=== PATIENT | female | born 1945 | race Caucasian/White ===

== ENCOUNTER 2022-03-26 18:53 | Inpatient (IN) ==
[~2022-03-26 18:53] MED LIST: ETOMIDATE 2 MG/ML 20 ML VIAL IV ONE; ROCURONIUM BROMIDE 10 MG/ML 5 ML VIAL IV ONE
[2022-03-26] MEDS ORDERED: RAPID SEQUENCE INDUCTION BAG ONE (19:05)
[2022-03-26] MEDS ORDERED: PROPOFOL IV EMULSION 10 MG/ML 100 ML VIAL IV ONE (19:16)
[2022-03-26] MEDS ORDERED: PIPERACILLIN/TAZOBACTAM 4.5 GM/120 ML BAG IV ONE (19:17)
[2022-03-26] MEDS ORDERED: PIPERACILL/TAZOBAC CONSULT ACTIVE PRN (19:17)
--- NOTE | 2022-03-26 19:17 | Emergency Department Note ---
Impression & Plan Acute respiratory failure with hypoxia and hypercarbia, Altered mental status, Pulmonary embolism, Elevated troponin I level ED Provider Note NAME: ALO JERNIGAN AGE: 76 SEX: F : 1945 ARRIVES VIA: Ambulance INFORMANT: Patient, ED PROVIDER(S): Saul Cuello MD Chief Complaint: Altered mental status HPI: Limited travel was obtained from EMS prior to arrival. The patient reportedly had been satting in the low 80s with a remote history of COPD and is supposed to wear 1 L at all times. The patient has had a been elements of failure to thrive. Patient was in the high 80s on 6 L and was placed on a non rebreather. The patient has been responsive to painful stimuli only. No reported trauma or falls. Family is to be present shortly for further history but otherwise no other history is obtainable at this time. Family eventually did arrive after the patient had been intubated and I did gather additional history. They did state the patient did recently travel from [place] and does have a known history of CAD status post stent placement. Patient had been without her Trelegy medication and does have a known history of hypothyroidism, hyperlipidemia, hypertension bronchitis depression and is a prediabetic. Patient reportedly had been more despondent in the time that she had presented here and they were also concerned about some leg swelling. This had been evaluated when she had been seeing her primary doctor in [place]. The patient had been traveling to the area to be closer to family locally. Patient had not been eating or drinking and was not using her oxygen typically. ROS: Unable to obtain secondary to clinical condition. Past medical history: See below Surgical history: See below Social history: See below Physical Exam: GENERAL: Ill, nonrebreather in place, guppy breathing EYE EXAM: Normal conjunctiva. PERRL, no anisocoria and EOM's grossly intact w/o pain. OROPHARYNX: Moist mucus membranes. Grossly normal dentition. No exudate, posterior pharynx is clear, no tonsillar/uvular deviation or swelling. No cervical adenopathy, no submental, submandibular, or sublingual swelling. NECK: Supple, no nuchal rigidity, no adenopathy, non-tender. No signs of meningismus. FROM of the neck with good chin to chest and neck extension. No stridor. LUNGS: Crackles noted. Normal chest wall mechanics. HEART: NSR, no MRG. ABDOMEN: Abdomen soft, non-tender, normo-active bowel sounds, no masses, no rebound or guarding. BACK: No CVA TTP. SKIN: No rashes and no bruising. UPPER EXTREMITIES: Upper extremities are grossly normal. LOWER EXTREMITIES: Grossly normal, no edema. NEURO EXAM: GCS of 9, does not follow commands, moves all 4 extremities, responds to painful stimuli Differential diagnoses: Reactive airway disease, pneumonia, pneumothorax, COPD, CHF, infections, cardiac ischemia, pulmonary embolism, musculoskeletal, gastrointestinal, as well as other pathologies. Course: Patient was seen and evaluated the bedside. Full history physical exam was performed. EKG interpreted by me Sinus with short IA, rate of 69, left axis deviation, no obvious ST elevations. Imaging Studies: See Below Cardiac monitoring: An order was placed for continuous cardiac monitoring. The monitor shows a rate of 88 with sinus rhythm. Procedures: Endotracheal Intubation performed by Dr. Cuello Indication: Airway protection, hypoxemia The patient was on 100% oxygen via NRB prior to the procedure. Suction, airway equipment, RSI drugs, respiratory equipment, and appropriate personnel were prepared prior to the initiation of the procedure. A time out was taken. Induction was performed with. After observing the clinical benefit of the medications, the airway was easily visualized utilizing a. A size ETT tube was placed atraumatically to cm using standard technique. The cuff inflated without signs of malfunction. There were bilateral breath sounds, positive colormetric change, no gastric sounds, a good capnography waveform, and post procedure pulse oximetry was %. Post intubation sedation and paralysis was administered using. There were no complications. MDM: Patient was seen initially due to concern for respiratory distress. The patient only responded to painful stimuli and was otherwise not following commands and I was concerned about her airway. The decision was made to emergently intubate the patient. Little history was known other than the patient had a history of COPD prior to arrival. Patient's CODE STATUS was unknown but in light of the patient's respiratory difficulty the patient was intubated. Patient had blood work completed along with a blood gas. Patient was started on a higher rate given concern for possible hypercarbia. Broad-spectrum antibiotics were ordered in addition to EKG, postintubation x-ray and sedation. Patient is a white count of 11.5 with a normal H&H and platelet count. The patient's kidney function does show prerenal azotemia. Patient did receive some IV fluids. The patient's initial blood gas showed slight acidosis and hypercarbia. Patient did have a repeat completed 1 hour later which showed improvement in her acidosis and hypercarbia. Patient's troponin was 150. EKG with no obvious ischemic changes and believe that this may be secondary to the patient's hypoxemia. This will be continued to be trended and monitored. Pro-Alex is not elevated. Urinalysis does not show obvious infection. Patient CT head is negative. CT angiography of the chest did show concern for PEs. Heparin was ordered. I did speak with the on-call hospitalist Dr. Garcia's as well as intensive care Nicko Lao PA-C. I also did convey the findings with the patient's family who were present at bedside. Patient was admitted to the intensive care unit. Critical Care: I have personally spent 125 minutes of critical care time in direct management of this patient. This includes bedside care, interpretation of diagnostic studies, and testing, discussion with consultants, patient, and family members, and other require inpatient management activities. This 125 minutes is in excess of all separately billable procedures. Past Med/Surg History Medical History (Updated 03/26/22 @ 23:29 by Saul Cuello MD) COPD (chronic obstructive pulmonary disease) Social History Smoking Status: Unknown if ever smoked Allergies Allergies Allergy/AdvReac Type Severity Reaction Status Date / Time pollen extracts Allergy Intermediate ITCHY Verified 03/26/22 20:26 EYES, SNEEZING, CONGESTION Home Meds Home Medications Medication Instructions Recorded Confirmed albuterol sulfate 90 mcg/actuation 2 puff INHALATION Q4H PRN 03/26/22 03/26/22 aerosol inhaler amlodipine 2.5 mg tablet 5 mg PO DAILY 03/26/22 03/26/22 atenolol 25 mg tablet 25 mg PO DAILY 03/26/22 03/26/22 fluticasone fur. 200 mcg-umeclid 1 inh INHALATION DAILY 03/26/22 03/26/22 62.5 mcg-vilant 25 mcg inhalat.powder (Trelegy Ellipta) levothyroxine 50 mcg tablet 50 mcg PO QAM 03/26/22 03/26/22 loratadine 10 mg tablet 10 mg PO DAILY 03/26/22 03/26/22 skckoqqlldpm-ybbsmvvh-ytnzel 1 tab PO DAILY 03/26/22 03/26/22 tablet (Multivitamin 50 Plus) nicotine (polacrilex) 4 mg gum 4 mg PO DIRECTED PRN 03/26/22 03/26/22 nitroglycerin 0.4 mg sublingual 0.4 mg SUBLINGUAL DIRECTED PRN 03/26/22 03/26/22 tablet (Nitrostat) rosuvastatin 20 mg tablet 20 mg PO QPM 03/26/22 03/26/22 sertraline 25 mg tablet 25 mg PO DAILY 03/26/22 03/26/22 Results & Data (ED) Vital Signs Vital Signs - 24 hr 03/26/22 18:59 03/26/22 19:15 03/26/22 19:20 Temperature 37.0 C Temperature Source Oral Pulse Rate 78 99 H 96 H Respiratory Rate 22 24 24 Respiratory Effort / Characteristics Gasping/Agonal Grunting Respiratory Pattern Irregular Blood Pressure 179/91 H 147/83 H Blood Pressure Mean 120 104 Blood Pressure Position Lying Pulse Oximetry 98 100 99 Oxygen Delivery Method Nasal Cannula Oxygen Flow Rate 2 Fraction of Inspired Oxygen 80 Sepsis Recent Fever Within 48 Hours No Sepsis New/Unexplained Change in Mental Status Yes Sepsis Action Taken by Nursing Physician Notified End-Tidal CO2 52 50 03/26/22 19:25 03/26/22 19:26 03/26/22 19:30 Temperature Temperature Source Pulse Rate 103 H 102 H 77 Respiratory Rate 24 24 25 H Respiratory Effort / Characteristics Respiratory Pattern Blood Pressure 225/146 H 232/147 H Blood Pressure Mean 172 175 Blood Pressure Position Pulse Oximetry 94 100 100 Oxygen Delivery Method Oxygen Flow Rate Fraction of Inspired Oxygen 30 Sepsis Recent Fever Within 48 Hours Sepsis New/Unexplained Change in Mental Status Sepsis Action Taken by Nursing End-Tidal CO2 48 47 43 03/26/22 19:35 03/26/22 19:40 03/26/22 19:41 Temperature Temperature Source Pulse Rate 91 H 83 90 Respiratory Rate 25 H 25 H 25 H Respiratory Effort / Characteristics Respiratory Pattern Blood Pressure 219/127 H 206/129 H Blood Pressure Mean 157 154 Blood Pressure Position Pulse Oximetry 99 99 99 Oxygen Delivery Method Oxygen Flow Rate Fraction of Inspired Oxygen Sepsis Recent Fever Within 48 Hours Sepsis New/Unexplained Change in Mental Status Sepsis Action Taken by Nursing End-Tidal CO2 38 36 34 03/26/22 19:42 03/26/22 19:43 03/26/22 19:45 Temperature Temperature Source Pulse Rate 77 Respiratory Rate 24 24 Respiratory Effort / Characteristics Mechanically Ventilated Respiratory Pattern Blood Pressure Blood Pressure Mean Blood Pressure Position Pulse Oximetry 99 99 100 Oxygen Delivery Method Mechanical Vent Mechanical Vent Oxygen Flow Rate Fraction of Inspired Oxygen Sepsis Recent Fever Within 48 Hours Sepsis New/Unexplained Change in Mental Status Sepsis Action Taken by Nursing End-Tidal CO2 33 03/26/22 19:46 03/26/22 19:50 03/26/22 19:51 Temperature Temperature Source Pulse Rate 77 71 76 Respiratory Rate 24 24 24 Respiratory Effort / Characteristics Respiratory Pattern Blood Pressure 177/99 H 155/86 H Blood Pressure Mean 125 109 Blood Pressure Position Pulse Oximetry 99 99 99 Oxygen Delivery Method Oxygen Flow Rate Fraction of Inspired Oxygen Sepsis Recent Fever Within 48 Hours Sepsis New/Unexplained Change in Mental Status Sepsis Action Taken by Nursing End-Tidal CO2 32 29 27 03/26/22 19:52 03/26/22 19:55 03/26/22 20:18 Temperature Temperature Source Pulse Rate 75 69 Respiratory Rate 25 H 25 H Respiratory Effort / Characteristics Respiratory Pattern Blood Pressure 151/84 H 184/89 H Blood Pressure Mean 106 120 Blood Pressure Position Pulse Oximetry 98 98 98 Oxygen Delivery Method Mechanical Vent Oxygen Flow Rate Fraction of Inspired Oxygen Sepsis Recent Fever Within 48 Hours Sepsis New/Unexplained Change in Mental Status Sepsis Action Taken by Nursing End-Tidal CO2 28 03/26/22 20:20 03/26/22 20:21 03/26/22 20:25 Temperature Temperature Source Pulse Rate 71 71 70 Respiratory Rate 29 H 22 24 Respiratory Effort / Characteristics Respiratory Pattern Blood Pressure 173/86 H Blood Pressure Mean 115 Blood Pressure Position Pulse Oximetry 98 98 98 Oxygen Delivery Method Oxygen Flow Rate Fraction of Inspired Oxygen Sepsis Recent Fever Within 48 Hours Sepsis New/Unexplained Change in Mental Status Sepsis Action Taken by Nursing End-Tidal CO2 03/26/22 20:26 03/26/22 20:30 03/26/22 20:31 Temperature Temperature Source Pulse Rate 69 68 69 Respiratory Rate 17 24 Respiratory Effort / Characteristics Respiratory Pattern Blood Pressure 152/77 H 159/86 H Blood Pressure Mean 102 110 Blood Pressure Position Pulse Oximetry 100 99 97 Oxygen Delivery Method Oxygen Flow Rate Fraction of Inspired Oxygen Sepsis Recent Fever Within 48 Hours Sepsis New/Unexplained Change in Mental Status Sepsis Action Taken by Nursing End-Tidal CO2 24 03/26/22 20:35 03/26/22 20:36 03/26/22 20:40 Temperature Temperature Source Pulse Rate 68 70 67 Respiratory Rate 24 24 25 H Respiratory Effort / Characteristics Respiratory Pattern Blood Pressure 141/84 H 146/81 H Blood Pressure Mean 103 102 Blood Pressure Position Pulse Oximetry 98 99 100 Oxygen Delivery Method Oxygen Flow Rate Fraction of Inspired Oxygen Sepsis Recent Fever Within 48 Hours Sepsis New/Unexplained Change in Mental Status Sepsis Action Taken by Nursing End-Tidal CO2 26 26 26 03/26/22 20:42 03/26/22 20:45 03/26/22 20:46 Temperature Temperature Source Pulse Rate 72 68 72 Respiratory Rate 24 24 24 Respiratory Effort / Characteristics Respiratory Pattern Blood Pressure 142/99 H Blood Pressure Mean 113 Blood Pressure Position Pulse Oximetry 99 100 100 Oxygen Delivery Method Oxygen Flow Rate Fraction of Inspired Oxygen 40 Sepsis Recent Fever Within 48 Hours Sepsis New/Unexplained Change in Mental Status Sepsis Action Taken by Nursing End-Tidal CO2 31 26 26 03/26/22 20:48 03/26/22 20:50 03/26/22 20:51 Temperature Temperature Source Pulse Rate 71 67 66 Respiratory Rate 24 24 24 Respiratory Effort / Characteristics Respiratory Pattern Blood Pressure 147/86 H 106/69 Blood Pressure Mean 106 81 Blood Pressure Position Pulse Oximetry 100 100 100 Oxygen Delivery Method Oxygen Flow Rate Fraction of Inspired Oxygen Sepsis Recent Fever Within 48 Hours Sepsis New/Unexplained Change in Mental Status Sepsis Action Taken by Nursing End-Tidal CO2 26 25 24 03/26/22 20:55 03/26/22 21:00 03/26/22 21:05 Temperature Temperature Source Pulse Rate 66 67 64 Respiratory Rate 25 H 24 24 Respiratory Effort / Characteristics Respiratory Pattern Blood Pressure 91/61 L 75/54 L 77/53 L Blood Pressure Mean 71 61 61 Blood Pressure Position Pulse Oximetry 100 100 100 Oxygen Delivery Method Oxygen Flow Rate Fraction of Inspired Oxygen Sepsis Recent Fever Within 48 Hours Sepsis New/Unexplained Change in Mental Status Sepsis Action Taken by Nursing End-Tidal CO2 23 22 21 03/26/22 21:07 03/26/22 21:10 03/26/22 21:15 Temperature Temperature Source Pulse Rate 63 63 60 Respiratory Rate 24 26 H 25 H Respiratory Effort / Characteristics Respiratory Pattern Blood Pressure 75/49 L 86/59 L 97/68 L Blood Pressure Mean 57 68 77 Blood Pressure Position Pulse Oximetry 99 100 100 Oxygen Delivery Method Oxygen Flow Rate Fraction of Inspired Oxygen Sepsis Recent Fever Within 48 Hours Sepsis New/Unexplained Change in Mental Status Sepsis Action Taken by Nursing End-Tidal CO2 21 21 23 03/26/22 21:20 03/26/22 21:25 03/26/22 21:26 Temperature Temperature Source Pulse Rate 58 L 57 L 58 L Respiratory Rate 25 H 24 24 Respiratory Effort / Characteristics Respiratory Pattern Blood Pressure 109/67 86/59 L Blood Pressure Mean 81 68 Blood Pressure Position Pulse Oximetry 100 100 100 Oxygen Delivery Method Oxygen Flow Rate Fraction of Inspired Oxygen Sepsis Recent Fever Within 48 Hours Sepsis New/Unexplained Change in Mental Status Sepsis Action Taken by Nursing End-Tidal CO2 24 24 24 03/26/22 21:30 03/26/22 21:31 03/26/22 21:35 Temperature Temperature Source Pulse Rate 56 L 58 L 58 L Respiratory Rate 24 24 26 H Respiratory Effort / Characteristics Respiratory Pattern Blood Pressure 77/52 L Blood Pressure Mean 60 Blood Pressure Position Pulse Oximetry 100 100 100 Oxygen Delivery Method Oxygen Flow Rate Fraction of Inspired Oxygen Sepsis Recent Fever Within 48 Hours Sepsis New/Unexplained Change in Mental Status Sepsis Action Taken by Nursing End-Tidal CO2 23 23 26 03/26/22 21:36 03/26/22 21:40 03/26/22 21:42 Temperature Temperature Source Pulse Rate 57 L 62 58 L Respiratory Rate 24 24 24 Respiratory Effort / Characteristics Respiratory Pattern Blood Pressure 90/54 L 99/55 L Blood Pressure Mean 66 69 Blood Pressure Position Pulse Oximetry 100 100 99 Oxygen Delivery Method Oxygen Flow Rate Fraction of Inspired Oxygen Sepsis Recent Fever Within 48 Hours Sepsis New/Unexplained Change in Mental Status Sepsis Action Taken by Nursing End-Tidal CO2 25 28 27 03/26/22 21:45 03/26/22 21:50 03/26/22 22:00 Temperature Temperature Source Pulse Rate 58 L 59 L 59 L Respiratory Rate 24 24 24 Respiratory Effort / Characteristics Respiratory Pattern Blood Pressure 120/63 Blood Pressure Mean 82 Blood Pressure Position Pulse Oximetry 100 100 100 Oxygen Delivery Method Oxygen Flow Rate Fraction of Inspired Oxygen Sepsis Recent Fever Within 48 Hours Sepsis New/Unexplained Change in Mental Status Sepsis Action Taken by Nursing End-Tidal CO2 26 28 29 03/26/22 22:01 Temperature Temperature Source Pulse Rate 59 L Respiratory Rate 28 H Respiratory Effort / Characteristics Respiratory Pattern Blood Pressure 109/75 Blood Pressure Mean 86 Blood Pressure Position Pulse Oximetry 100 Oxygen Delivery Method Oxygen Flow Rate Fraction of Inspired Oxygen Sepsis Recent Fever Within 48 Hours Sepsis New/Unexplained Change in Mental Status Sepsis Action Taken by Nursing End-Tidal CO2 29 Home Medications Current Medication List: was personally reviewed by me Laboratory Data Attestation: I reviewed the patient's lab results. Result diagrams: 03/26/22 19:17 03/26/22 19:17 Lab Results 03/26/22 03/26/22 03/26/22 Range/Units 19:00 19:17 19:17 WBC 11.59 H (4.8-10.8) K/uL RBC 5.11 (4.2-5.4) M/uL Hgb 15.9 (12.0-16.0) g/dL POC Hgb (12.0-16.0) g/dl Hct 48.7 H (37-47) % POC Hct (37-47) % MCV 95.3 (80-100) fL MCH 31.1 (25-34) pg MCHC 32.6 (32-36) g/dL RDW Std Deviation 47.7 H (36.4-46.3) fL RDW Coeff of Yosef 13.6 (11.5-14.5) % Plt Count 230 (130-400) K/uL MPV 9.1 (7.4-10.4) fL Immature Gran % (Auto) 0.4 % Neut % (Auto) 72.1 % Lymph % (Auto) 11.9 % Kleberg % (Auto) 15.5 % Eos % (Auto) 0.1 % Baso % (Auto) 0.0 % Neut # (Auto) 8.35 H (1.4-6.5) K/uL Lymph # (Auto) 1.38 (1.2-3.4) K/uL Kleberg # (Auto) 1.80 H (0.11-0.59) K/uL Eos # (Auto) 0.01 (0-0.5) K/uL Baso # (Auto) 0.00 (0-0.2) K/uL Immature Gran # (Auto) 0.05 H (0.00-0.02) K/uL PT 10.4 (9.0-12.0) Seconds INR 1.0 (0.9-1.1) APTT 24.2 (21.0-31.0) Seconds PTT Ratio 0.9 POC pH (7.35-7.45) POC pCO2 (35-46) mmHg POC pO2 (80-95) mmHg POC HCO3 (19-24) earlene/L POC Total CO2 (24-31) mmol/L POC Base Excess (-9-1.8) earlene/L POC ABG O2 Sat (90-95) % VBG pH (7.36-7.41) VBG pCO2 (38-50) mmHg VBG pO2 mmHg VBG HCO3 mmol/L VBG O2 Saturation % VBG Base Excess mEq/L Barometric Pressure mm/Hg POC Sodium (135-144) mmol/L Sodium (136-145) mmol/L POC Potassium (3.3-5.0) mmol/L Potassium (3.5-5.1) mmol/L Chloride (98-107) mmol/L Carbon Dioxide (21-32) mmol/L Anion Gap (3-11) BUN (6-23) mg/dl Creatinine (0.6-1.2) mg/dl Est Cr Clr Drug Dosing ml/min Est GFR ( Amer) ml/min Est GFR (Non-Af Amer) ml/min BUN/Creatinine Ratio (10-20) Glucose (70-99(Fasting)) mg/dl Lactate (0.4-2.0) mmol/L Calcium (8.5-10.1) mg/dl Magnesium (1.7-2.4) mg/dl Total Bilirubin (0.2-1.0) mg/dl AST (13-39) U/L ALT (7-52) U/L Alkaline Phosphatase (34-104) U/L Troponin I High Sens 150.9 H* (0-14) pg/ml Total Protein (6.0-8.3) gm/dl Albumin (3.4-5.0) gm/dl Globulin (2.5-4.0) gm/dl Albumin/Globulin Ratio (0.9-2) Procalcitonin (0-0.5) ng/ml 03/26/22 03/26/22 03/26/22 Range/Units 19:17 19:17 19:17 WBC (4.8-10.8) K/uL RBC (4.2-5.4) M/uL Hgb (12.0-16.0) g/dL POC Hgb (12.0-16.0) g/dl Hct (37-47) % POC Hct (37-47) % MCV (80-100) fL MCH (25-34) pg MCHC (32-36) g/dL RDW Std Deviation (36.4-46.3) fL RDW Coeff of Yosef (11.5-14.5) % Plt Count (130-400) K/uL MPV (7.4-10.4) fL Immature Gran % (Auto) % Neut % (Auto) % Lymph % (Auto) % Kleberg % (Auto) % Eos % (Auto) % Baso % (Auto) % Neut # (Auto) (1.4-6.5) K/uL Lymph # (Auto) (1.2-3.4) K/uL Kleberg # (Auto) (0.11-0.59) K/uL Eos # (Auto) (0-0.5) K/uL Baso # (Auto) (0-0.2) K/uL Immature Gran # (Auto) (0.00-0.02) K/uL PT (9.0-12.0) Seconds INR (0.9-1.1) APTT (21.0-31.0) Seconds PTT Ratio POC pH (7.35-7.45) POC pCO2 (35-46) mmHg POC pO2 (80-95) mmHg POC HCO3 (19-24) earlene/L POC Total CO2 (24-31) mmol/L POC Base Excess (-9-1.8) earlene/L POC ABG O2 Sat (90-95) % VBG pH (7.36-7.41) VBG pCO2 (38-50) mmHg VBG pO2 mmHg VBG HCO3 mmol/L VBG O2 Saturation % VBG Base Excess mEq/L Barometric Pressure mm/Hg POC Sodium (135-144) mmol/L Sodium 135 L (136-145) mmol/L POC Potassium (3.3-5.0) mmol/L Potassium 4.7 (3.5-5.1) mmol/L Chloride 92 L (98-107) mmol/L Carbon Dioxide 40 H (21-32) mmol/L Anion Gap 3 (3-11) BUN 34 H (6-23) mg/dl Creatinine 0.72 (0.6-1.2) mg/dl Est Cr Clr Drug Dosing 70.2 ml/min Est GFR ( Amer) 95.6 ml/min Est GFR (Non-Af Amer) 82.5 ml/min BUN/Creatinine Ratio 47.2 H (10-20) Glucose 131 H (70-99(Fasting)) mg/dl Lactate 0.5 (0.4-2.0) mmol/L Calcium 9.4 (8.5-10.1) mg/dl Magnesium 2.1 (1.7-2.4) mg/dl Total Bilirubin 0.5 (0.2-1.0) mg/dl AST 33 (13-39) U/L ALT 23 (7-52) U/L Alkaline Phosphatase 56 (34-104) U/L Troponin I High Sens (0-14) pg/ml Total Protein 7.1 (6.0-8.3) gm/dl Albumin 3.9 (3.4-5.0) gm/dl Globulin 3.2 (2.5-4.0) gm/dl Albumin/Globulin Ratio 1.2 (0.9-2) Procalcitonin 0.14 (0-0.5) ng/ml 03/26/22 03/26/22 03/26/22 Range/Units 19:17 19:28 20:30 WBC (4.8-10.8) K/uL RBC (4.2-5.4) M/uL Hgb (12.0-16.0) g/dL POC Hgb 16.0 (12.0-16.0) g/dl Hct (37-47) % POC Hct 47 (37-47) % MCV (80-100) fL MCH (25-34) pg MCHC (32-36) g/dL RDW Std Deviation (36.4-46.3) fL RDW Coeff of Yosef (11.5-14.5) % Plt Count (130-400) K/uL MPV (7.4-10.4) fL Immature Gran % (Auto) % Neut % (Auto) % Lymph % (Auto) % Kleberg % (Auto) % Eos % (Auto) % Baso % (Auto) % Neut # (Auto) (1.4-6.5) K/uL Lymph # (Auto) (1.2-3.4) K/uL Kleberg # (Auto) (0.11-0.59) K/uL Eos # (Auto) (0-0.5) K/uL Baso # (Auto) (0-0.2) K/uL Immature Gran # (Auto) (0.00-0.02) K/uL PT (9.0-12.0) Seconds INR (0.9-1.1) APTT (21.0-31.0) Seconds PTT Ratio POC pH 7.31 L 7.45 (7.35-7.45) POC pCO2 85 H 49 H (35-46) mmHg POC pO2 > 420 H 57 L (80-95) mmHg POC HCO3 43 H 34 H (19-24) earlene/L POC Total CO2 > 40 H* 36 H (24-31) mmol/L POC Base Excess 17.0 H 10.0 H (-9-1.8) earlene/L POC ABG O2 Sat 100.0 H 90.0 (90-95) % VBG pH 7.17 L (7.36-7.41) VBG pCO2 113 H (38-50) mmHg VBG pO2 62 mmHg VBG HCO3 41 mmol/L VBG O2 Saturation 88.6 % VBG Base Excess 6.9 mEq/L Barometric Pressure 729.4 mm/Hg POC Sodium 132 L (135-144) mmol/L Sodium (136-145) mmol/L POC Potassium 4.3 (3.3-5.0) mmol/L Potassium (3.5-5.1) mmol/L Chloride (98-107) mmol/L Carbon Dioxide (21-32) mmol/L Anion Gap (3-11) BUN (6-23) mg/dl Creatinine (0.6-1.2) mg/dl Est Cr Clr Drug Dosing ml/min Est GFR ( Amer) ml/min Est GFR (Non-Af Amer) ml/min BUN/Creatinine Ratio (10-20) Glucose (70-99(Fasting)) mg/dl Lactate (0.4-2.0) mmol/L Calcium (8.5-10.1) mg/dl Magnesium (1.7-2.4) mg/dl Total Bilirubin (0.2-1.0) mg/dl AST (13-39) U/L ALT (7-52) U/L Alkaline Phosphatase (34-104) U/L Troponin I High Sens (0-14) pg/ml Total Protein (6.0-8.3) gm/dl Albumin (3.4-5.0) gm/dl Globulin (2.5-4.0) gm/dl Albumin/Globulin Ratio (0.9-2) Procalcitonin (0-0.5) ng/ml Administered Medications Propofol (Diprivan) 1,000 mg in 100 mls @ 9.624 mls/hr IV .[id number]; Protocol Stop: 03/27/22 05:52 Last Titration: 03/26/22 19:40 Dose: 25 mcg/kg/min, 12 mls/hr Documented by: [id number] Admin: 03/26/22 19:35 Dose: 20 mcg/kg/min, 9.6 mls/hr Documented by: [id number] Cosigned by: [id number] Heparin Sodium/Dextrose (Heparin Sodium/Dextrose) 25,000 units in 500 mls @ 23 mls/hr IV .[id number]; Protocol Stop: 04/25/22 20:59 Last Admin: 03/26/22 21:16 Dose: 1,150 units/hr, 23 mls/hr Documented by: [id number] Cosigned by: [id number] Methylprednisolone (Methylprednisolone 40 Mg/Ml Vial) 40 mg IV TID [id number] Stop: 04/25/22 22:09 Last Admin: 03/26/22 22:21 Dose: 40 mg Documented by: [id number] Discontinued Medications Fentanyl Citrate (Fentanyl Citrate 100 Mcg/2 Ml Vial) 50 mcg IV NOW STA Stop: 03/26/22 20:49 Last Admin: 03/26/22 20:52 Dose: 50 mcg Documented by: [id number] Heparin Sodium/Dextrose (Heparin Iv Adult Wt-Based Standard *No* Bolus Protocol) 1 ea IV ONE ONE; Protocol Stop: 03/26/22 20:42 Last Admin: 03/26/22 21:25 Dose: Not Given Documented by: [id number] Piperacillin Sod/Tazobactam Sod (Zosyn) 4.5 gm in 120 mls @ 240 mls/hr IV NOW ONE Stop: 03/26/22 19:46 Last Infusion: 03/26/22 20:05 Dose: 0 mls/hr Documented by: [id number] Admin: 03/26/22 19:35 Dose: 240 mls/hr Documented by: [id number] Vancomycin HCl 2,000 mg/ (Sodium Chloride) 540 mls @ 200 mls/hr IV NOW ONE Stop: 03/26/22 21:59 Last Admin: 03/26/22 20:19 Dose: 200 mls/hr Documented by: [id number] Sodium Chloride (Nss 1000ml) 1,000 mls @ 999 mls/hr IV .[id number] ONE Stop: 03/26/22 22:04 Last Infusion: 03/26/22 22:36 Dose: 0 mls/hr Documented by: [id number] Admin: 03/26/22 21:17 Dose: 999 mls/hr Documented by: [id number] Ioversol (Optiray 320 125ml) 117 ml IV ONCE ONE Stop: 03/26/22 20:09 Last Admin: 03/26/22 20:09 Dose: 117 ml Documented by: [id number] Propofol (Propofol Iv Emulsion 10 Mg/Ml 100 Ml Vial) Confirm Administered Dose 1,000 mg IV .STK-MED ONE Stop: 03/26/22 19:17 Last Admin: 03/26/22 19:36 Dose: Not Given Documented by: [id number] Imaging Data Radiologist's Impression: Chest X-Ray 03/26/22 19:03 XR chest 1V portable HISTORY: 76 years-old Female SEPSIS acute sepsis with respiratory failure COMPARISON: None TECHNIQUE: Portable AP view of the chest FINDINGS: Endotracheal tube overlies the midline, 2.3 cm superior to the astrid. Atherosclerosis of the aorta. The heart is upper limits of normal in size. Emphysema. No pneumothorax or large pleural effusion. Left greater than right interstitial coarsening with mild bibasilar airspace opacities. Degenerative changes of the shoulders and spine. IMPRESSION: 1. Endotracheal tube terminates 2.3 cm superior to the astrid. 2. Emphysema with left greater than right interstitial coarsening and mild bibasilar opacities. ACT 112: Negative or not required by law. The above report was generated using voice recognition software. It may contain grammatical, syntax or spelling errors. Electronically signed by: Marcio Alarcon M.D. 03/26/2022 7:[address] 03/26/22 19:03 CT head/brain wo con CLINICAL HISTORY: 76 years-old Female with AMS. Acutely altered mental status TECHNIQUE: Multiple axial CT images of the head were obtained without contrast. A dose lowering technique was utilized adhering to the principles of ALARA. CT DOSE: 537.48 mGy.cm COMPARISON: Chest radiograph of same day FINDINGS: No acute intracranial hemorrhage, midline shift, intracranial mass, hydrocephalus, territorial ischemia or abnormal extra-axial collection. Cerebral vascular calcifications. Age-related involutional changes. White matter hypodensities suggest chronic microvascular ischemic disease. The calvarium is intact. Endotracheal tube with nasopharyngeal secretions. Mild mucosal thickening of the ethmoid air cells. The mastoid air cells are clear. Unremarkable soft tissues and orbits. IMPRESSION: No acute intracranial abnormality. ACT 112: Negative or not required by law. The above report was generated using voice recognition software. It may contain grammatical, syntax or spelling errors. Electronically signed by: Marcio Alarcon M.D. 03/26/2022 8:22 PM Chest CTA 03/26/22 20:07 CT angio chest PE protocol CT DOSE: 429.21 mGy.cm HISTORY: 76 years-old Female with PE. Acute respiratory failure TECHNIQUE: Multiple CTA images of the chest were obtained after the intravenous administration of 170 ml Optiray. Coronal and sagittal MIPS were obtained from the axial data set and were submitted for review. All measurements were obtained according to NASCET criteria. A dose lowering technique was utilized adhering to the principles of ALARA. COMPARISON: Chest radiograph of same day FINDINGS: CTA: The heart is normal in size. Extensive coronary artery calcifications. Trace pericardial effusion. Atherosclerosis of the thoracic aorta without aneurysm. There is patency of the imaged great vessels. Satisfactory opacification of the pulmonary arterial with reflux into the IVC. There are a few small segmental and subsegmental pulmonary emboli noted in the right middle and lower lobes. No central pulmonary emboli identified. No evidence of right heart strain. CT CHEST: No thyroid nodule. Prominent paratracheal with mildly enlarged subcarinal lymph nodes measure up to 10 mm. Subcentimeter bilateral hilar adenopathy. An endotracheal tube is present within the trachea, 1.7 cm superior to the astrid. Enteric tube courses into the stomach with distal tip outside the [id number]. There is a suspicious subpleural solid nodule within the left lower lobe on image 116 measures 1.5 x 1.2 x 1.5 cm. Severe emphysema. Moderate bronchial wall thickening with multifocal mucus plugging. Bibasilar predominate multifocal tree-in-bud nodules. Subsegmental right greater than left bibasilar dependent consolidation. Tracheobronchial secretions. The study is degraded by respiratory motion artifact. Nonspecific mild distal esophageal wall thickening. There is moderate thickening of the adrenal glands suggestive of hyperplasia. 3.4 cm hypodense lesion of the superior pole right kidney is incompletely characterized however suggests a probable cyst. Unremarkable soft tissues. Degenerative changes of the spine and shoulders. Age-indeterminate moderate T4, T8 and T9 compression deformities without retropulsion or definite paravertebral edema. Midthoracic levoscoliosis. IMPRESSION: 1. Small segmental and subsegmental right-sided pulmonary emboli. 2. Satisfactory positioning of the endotracheal and enteric tubes. 3. Suspicious 1.5 cm left lower lobe pulmonary nodule. Follow-up with pulmonolo gy is needed. 4. Severe emphysema with bronchitis. Tracheobronchial secretions with bibasilar mucous plugging. 5. Mild dependent right greater than left bibasilar consolidation with mid to lower lung zone predominant bilateral tree-in-bud nodules compatible with an infectious or inflammatory bronchiolitis. 6. Age-indeterminate thoracic compression deformities are favored to be chronic. ACT 112: Negative or not required by law. The above report was generated using voice recognition software. It may contain grammatical, syntax or spelling errors. Electronically signed by: Marcio Alarcon M.D. 03/26/2022 8:37 PM Discharge Plan Visit Data Chief Complaint: Altered Mental Status Stated Complaint: AMS ED Provider: Saul Cuello Discharge Problem: Acute respiratory failure with hypoxia and hypercarbia, Altered mental status, Pulmonary embolism, Elevated troponin I level Discharge Instructions Interventions: ED Discharge Assessment Last Done: 03/26/22 23:04
[2022-03-26] MEDS ORDERED: VANCOMYCIN CONSULT ACTIVE PRN (19:18)
[2022-03-26] MEDS ORDERED: VANCOMYCIN HCL 2,000 MG in SODIUM CHLORIDE 0.9% 500 ML IV ONE (19:18)
--- NOTE | 2022-03-26 19:27 | XRay Report ---
XR chest 1V portable HISTORY: 76 years-old Female SEPSIS acute sepsis with respiratory failure COMPARISON: None TECHNIQUE: Portable AP view of the chest FINDINGS: Endotracheal tube overlies the midline, 2.3 cm superior to the astrid. Atherosclerosis of the aorta. The heart is upper limits of normal in size. Emphysema. No pneumothorax or large pleural effusion. Le ft greater than right interstitial coarsening with mild bibasilar airspace opacities. Degenerative ch anges of the shoulders and spine. IMPRESSION: 1. Endotracheal tube terminates 2.3 cm superior to the astrid. 2. Emphysema with left greater than right interstitial coarsening and mild bibasilar opacities. ACT 112: Negative or not required by law. The above report was generated using voice recognition software. It may contain grammatical, syntax o r spelling errors. Electronically signed by: Marcio Alarcon M.D. 03/26/2022 7:25 PM
[2022-03-26] MEDS ORDERED: propofoL 1,000 MG/100 ML VIAL IV ONE (19:29)
[2022-03-26 19:36] LABS: Eosinophils # (auto) 0.01 K/uL (0-0.5); Eosinophils % (auto) 0.1 %; Hematocrit (blood only) 48.7 % (37-47); Hemoglobin 15.9 g/dL (12.0-16.0); Immature Granulocytes # (auto) 0.05 K/uL (0.00-0.02); Immature Granulocytes % (auto) 0.4 %; Lymphocytes # (auto) 1.38 K/uL (1.2-3.4); Lymphocytes % (auto) 11.9 %; Mean Corpuscular Hemoglobin 31.1 pg (25-34); Mean Corpuscular Hgb Conc 32.6 g/dL (32-36); Mean Corpuscular Volume 95.3 fL (80-100); Mean Platelet Volume 9.1 fL (7.4-10.4); Monocytes % (auto) 15.5 %; Neutrophils # (auto) 8.35 K/uL (1.4-6.5); Neutrophils % (auto) 72.1 %; Platelet Count 230 K/uL (130-400); RDW Coefficient of Variation 13.6 % (11.5-14.5); RDW Standard Deviation 47.7 fL (36.4-46.3); Red Blood Count 5.11 M/uL (4.2-5.4); White Blood Count 11.59 K/uL (4.8-10.8)
[2022-03-26 19:44] LABS: iSTAT Arterial Blood Gas HCO3 43 meg/L (19-24); iSTAT Arterial Blood Gas pCO2 85 mmHg (35-46); iSTAT Arterial Blood Gas pH 7.31 (7.35-7.45); iSTAT Arterial Blood Gas pO2 > 420 mmHg (80-95); iSTAT Carbon Dioxide > 40 mmol/L (24-31); iSTAT Hematocrit 47 % (37-47); iSTAT Potassium 4.3 mmol/L (3.3-5.0); iSTAT Sodium 132 mmol/L (135-144)
[2022-03-26 19:45] LABS: Base Excess VBG 6.9 mEq/L; Oxygen Saturation VBG 88.6 %; Partial Thromboplastin Ratio 0.9; Partial Thromboplastin Time 24.2 Seconds (21.0-31.0); Prothrombin Time 10.4 Seconds (9.0-12.0); pH VBG 7.17 (7.36-7.41)
[2022-03-26 19:48] LABS: Appearance Urine Clear (Clear); Bacteria Urine Automated Negative (Negative); Blood Urine 1+ (Negative); Color Urine Dark Yellow; Glucose Urine UA Negative (Negative); Ketones Urine Negative (Negative); Leukocyte Esterase Urine Negative (Negative); Nitrite Urine Negative (Negative); Protein Urine 1+ (Negative); Specific Gravity Urine 1.026 (1.000-1.030); Urobilinogen Urine Negative (Negative); pH Urine 5.5 (4.5-7.5)
[2022-03-26 19:50] LABS: Bilirubin Urine 1+ (Negative)
[2022-03-26 19:54] LABS: Albumin Globulin Ratio 1.2 (0.9-2); Albumin Level 3.9 gm/dl (3.4-5.0); BUN Creatinine Ratio 47.2 (10-20); Bilirubin,Total 0.5 mg/dl (0.2-1.0); Calcium 9.4 mg/dl (8.5-10.1); Creatinine Clr Calc Pharmacy 70.2 ml/min; Est GFR (African American) 95.6 ml/min; Est GFR (Non-African American) 82.5 ml/min; Globulin 3.2 gm/dl (2.5-4.0); Magnesium 2.1 mg/dl (1.7-2.4); Potassium 4.7 mmol/L (3.5-5.1); Total Protein 7.1 gm/dl (6.0-8.3)
[2022-03-26] MEDS ORDERED: OPTIRAY 320 125ml IV ONE (20:08)
--- NOTE | 2022-03-26 20:24 | CT Scan Report ---
CT head/brain wo con CLINICAL HISTORY: 76 years-old Female with AMS. Acutely altered mental status TECHNIQUE: Multiple axial CT images of the head were obtained without contrast. A dose lowering tech nique was utilized adhering to the principles of ALARA. CT DOSE: 537.48 mGy.cm COMPARISON: Chest radiograph of same day FINDINGS: No acute intracranial hemorrhage, midline shift, intracranial mass, hydrocephalus, territorial ischem ia or abnormal extra-axial collection. Cerebral vascular calcifications. Age-related involutional willy nges. White matter hypodensities suggest chronic microvascular ischemic disease. The calvarium is intact. Endotracheal tube with nasopharyngeal secretions. Mild mucosal thickening of the ethmoid air cells. The mastoid air cells are clear. Unremarkable soft tissues and orbits. IMPRESSION: No acute intracranial abnormality. ACT 112: Negative or not required by law. The above report was generated using voice recognition software. It may contain grammatical, syntax o r spelling errors. Electronically signed by: Marcio Alarcon M.D. 03/26/2022 8:22 PM
--- NOTE | 2022-03-26 20:39 | CT Scan Report ---
CT angio chest PE protocol CT DOSE: 429.21 mGy.cm HISTORY: 76 years-old Female with PE. Acute respiratory failure TECHNIQUE: Multiple CTA images of the chest were obtained after the intravenous administration of 170 ml Optiray. Coronal and sagittal MIPS were obtained from the axial data set and were submitted for review. All measurements were obtained according to NASCET criteria. A dose lowering technique was u tilized adhering to the principles of ALARA. COMPARISON: Chest radiograph of same day FINDINGS: CTA: The heart is normal in size. Extensive coronary artery calcifications. Trace pericardial effusion. At herosclerosis of the thoracic aorta without aneurysm. There is patency of the imaged great vessels. S atisfactory opacification of the pulmonary arterial with reflux into the IVC. There are a few small s egmental and subsegmental pulmonary emboli noted in the right middle and lower lobes. No central pulm onary emboli identified. No evidence of right heart strain. CT CHEST: No thyroid nodule. Prominent paratracheal with mildly enlarged subcarinal lymph nodes measure up to 1 0 mm. Subcentimeter bilateral hilar adenopathy. An endotracheal tube is present within the trachea, 1 .7 cm superior to the astrid. Enteric tube courses into the stomach with distal tip outside the field -of-view. There is a suspicious subpleural solid nodule within the left lower lobe on image 116 measures 1.5 x 1.2 x 1.5 cm. Severe emphysema. Moderate bronchial wall thickening with multifocal mucus plugging. Bi basilar predominate multifocal tree-in-bud nodules. Subsegmental right greater than left bibasilar de pendent consolidation. Tracheobronchial secretions. The study is degraded by respiratory motion artif act. Nonspecific mild distal esophageal wall thickening. There is moderate thickening of the adrenal gland s suggestive of hyperplasia. 3.4 cm hypodense lesion of the superior pole right kidney is incompletel y characterized however suggests a probable cyst. Unremarkable soft tissues. Degenerative changes of the spine and shoulders. Age-indeterminate moderate T4, T8 and T9 compression deformities without ret ropulsion or definite paravertebral edema. Midthoracic levoscoliosis. IMPRESSION: 1. Small segmental and subsegmental right-sided pulmonary emboli. 2. Satisfactory positioning of the endotracheal and enteric tubes. 3. Suspicious 1.5 cm left lower lobe pulmonary nodule. Follow-up with pulmonology is needed. 4. Severe emphysema with bronchitis. Tracheobronchial secretions with bibasilar mucous plugging. 5. Mild dependent right greater than left bibasilar consolidation with mid to lower lung zone predomi nant bilateral tree-in-bud nodules compatible with an infectious or inflammatory bronchiolitis. 6. Age-indeterminate thoracic compression deformities are favored to be chronic. ACT 112: Negative or not required by law. The above report was generated using voice recognition software. It may contain grammatical, syntax o r spelling errors. Electronically signed by: Marcio Alarcon M.D. 03/26/2022 8:37 PM
[2022-03-26] MEDS ORDERED: Heparin IV Adult Wt-Based Standard *NO* Bolus Protocol IV ONE (20:41)
[2022-03-26 20:43] LABS: iSTAT Arterial Blood Gas HCO3 34 meg/L (19-24); iSTAT Arterial Blood Gas pCO2 49 mmHg (35-46); iSTAT Arterial Blood Gas pH 7.45 (7.35-7.45); iSTAT Arterial Blood Gas pO2 57 mmHg (80-95); iSTAT Carbon Dioxide 36 mmol/L (24-31)
[2022-03-26] MEDS ORDERED: fentaNYL citrate 100 MCG/2 ML VIAL IV STA (20:48)
[2022-03-26 20:54] LABS: Adenovirus PCR Not Detected (NotDetected); Bordetella parapertussis PCR Not Detected (NotDetected); Bordetella pertussis PCR Not Detected (NotDetected); Chlamydia pneumoniae PCR Not Detected (NotDetected); Coronavirus 229E PCR Not Detected (NotDetected); Coronavirus CoV-2 (COVID19)PCR Not Detected (NotDetected); Coronavirus HKU1 PCR Not Detected (NotDetected); Coronavirus NL63 PCR Not Detected (NotDetected); Coronavirus OC43PCR Not Detected (NotDetected); Human Metapneumovirus PCR Not Detected (NotDetected); Influenza A PCR Not Detected (NotDetected); Influenza B PCR Not Detected (NotDetected); Mycoplasma pneumoniae PCR Not Detected (NotDetected); Parainfluenza Virus 1 PCR Not Detected (NotDetected); Parainfluenza Virus 2 PCR Not Detected (NotDetected); Parainfluenza Virus 3 PCR Not Detected (NotDetected); Parainfluenza Virus 4 PCR Not Detected (NotDetected); Respiratory Syncytial VirusPCR Not Detected (NotDetected); Rhinovirus/Enterovirus PCR Not Detected (NotDetected)
[2022-03-26] MEDS ORDERED: HEPARIN SODIUM/DEXTROSE 25,000 UNITS/500 ML BAG IV SCH (21:00)
[2022-03-26] MEDS ORDERED: SODIUM CHLORIDE 0.9% 1000ML 1,000 ML IV ONE (21:04)
[2022-03-26] MEDS ORDERED: ICU PROTOCOL FOR HYPERGLYCEMIA PRN (23:21)
[2022-03-26] MEDS ORDERED: NITROGLYCERIN SL 0.4 MG/TAB TAB SL PRN (23:21)
[2022-03-26] MEDS ORDERED: ALBUTEROL HFA 8 GM INHALER INH PRN (23:21)
--- NOTE | 2022-03-26 23:51 | Critical Care Consultation ---
Date of Consultation March 26, 2022 Assessment & Plan (1) Admitted to intensive care unit: Reason Critically Ill: 76-year-old female with acute hypoxic respiratory failure with hypercapnia requiring endotracheal intubation and ongoing management in the ICU. NEURO - * CAM ICU: Unable to assess secondary to sedation. * Sedation: Propofol * Pain: As needed fentanyl CARDIAC/VASCULAR - * Elevated troponin: * Likely demand ischemia in the setting of hypoxia and acidemia. * Trend troponin. * Monitor on tele. * AM echo to assess heart strain, however PE appears small. * EKG: NSR @ [address] elevations/T wave changes noted. QTc 465 ms. * Monitor on telemetry. RESPIRATORY - * Acute hypoxic respiratory failure w/ hypercapnia: * In the setting of COPD exacerbation. * Pt CO2 retaining on initial ABG. * Titrate ventilator settings as tolerated. * Trend ABGs. * COPD Exacerbation: * Agree w/ steroids/nebs/abx coverage in the acutely ill COPD patient. * Pulmonary Emboli: * Currently on Heparin gtt. * Will doppler legs. * AM Echo GI/NUTRITION - * OGT in place. RENAL/LYTES - * No significant electrolyte derangements. - * Wnin in place - Strict I&Os. ENDO - * No h/o DM * BSGs per unit protocol. ISS --> gtt per unit policy. * Continue outpatient Levothyroxine dosing. HEME - * Stable H&H ID - * CAP: * Per CT findings and c/w patient's respiratory failure presentation. * Continue w/ Abx coverage for now. Can likely deescalate quickly. LINES/IV ACCESS - * PIVs x3 * ETT * OGT * Winn DVT PROPHYLAXIS - * Heparin gtt * SCDs I have personally spent 35 minutes of critical care time in the direct management of this patient. This is a life/limb threatening event. This includes time spent evaluating patient, direct bedside care, chart review, placing orders, interpretation of diagnostic studies, discussion with consultants, patient, and family members, as well as other required patient management activities. This time is exclusive of all separately billable procedures, and teaching time and separate from and in addition to any other critical care service time. Thank you for allowing us to participate in the care of this patient. Please refer to my attending physician's documentation for any further recommendations. (2) Acute respiratory failure with hypoxia and hypercarbia: (3) Altered mental status: (4) Pulmonary embolism: (5) Elevated troponin I level: History of Present Illness Attending Physician: Alejandro Real MD History of Present Illness Patient is a 76-year-old female with a significant past medical history of COPD and tobacco abuse who presented to the emergency department altered. She recently arrived in the area and is visiting family. For the last few days, she has been lethargic and altered. In the emergency department, she was intubated secondary to altered mental status and hypoxia. Patient was noted to be CO2 retaining. CT of the chest demonstrates parabronchial thickening as well as some subsegmental RIGHT-sided pulmonary emboli. She was started on a heparin drip. She remains sedated on propofol. Upon evaluation in the ICU, the patient is intubated and sedated. Unable to contribute to HPI. Allergies Allergy/AdvReac Type Severity Reaction Status Date / Time pollen extracts Allergy Intermediate ITCHY Verified 03/26/22 20:26 EYES, SNEEZING, CONGESTION Home Medications Medication Instructions Recorded Confirmed Type albuterol sulfate 90 mcg/actuation 2 puff INHALATION Q4H PRN 03/26/22 03/26/22 History aerosol inhaler amlodipine 2.5 mg tablet 5 mg PO DAILY 03/26/22 03/26/22 History atenolol 25 mg tablet 25 mg PO DAILY 03/26/22 03/26/22 History fluticasone fur. 200 mcg-umeclid 1 inh INHALATION DAILY 03/26/22 03/26/22 History 62.5 mcg-vilant 25 mcg inhalat.powder (Trelegy Ellipta) levothyroxine 50 mcg tablet 50 mcg PO QAM 03/26/22 03/26/22 History loratadine 10 mg tablet 10 mg PO DAILY 03/26/22 03/26/22 History kybfusguttxw-sxwhamfi-ejdnjs 1 tab PO DAILY 03/26/22 03/26/22 History tablet (Multivitamin 50 Plus) nicotine (polacrilex) 4 mg gum 4 mg PO DIRECTED PRN 03/26/22 03/26/22 History nitroglycerin 0.4 mg sublingual 0.4 mg SUBLINGUAL DIRECTED PRN 03/26/22 03/26/22 History tablet (Nitrostat) rosuvastatin 20 mg tablet 20 mg PO QPM 03/26/22 03/26/22 History sertraline 25 mg tablet 25 mg PO DAILY 03/26/22 03/26/22 History Patient History Medical History COPD (chronic obstructive pulmonary disease) Social History Smoking Status: Former smoker Second Hand Exposure: No; Do You Dip or Chew Tobacco: No; Tobacco Cessation Education Requested by Patient: No Hx Alcohol Use: No Hx Substance Use: No Preferred Language: French Communication Ability: Unable [employer] Worker Required: No Beliefs That Will Affect Care: None Current Living Situation: Family Other Information That Helps Us Care for You: No Feels Safe at Home: Yes Safety Concerns: Feels Safe At This Time Assistive Devices: Review of Systems Review of Systems: Unobtainable due to endotracheal tube and Unobtainable due to reduced consciousness Physical Exam Physical Exam: VITAL SIGNS - Vital signs and nursing notes were reviewed. GENERAL - 76-year-old female appearing her stated age who is in no acute distress. Intubated and sedated. SKIN - Without rashes. HEAD - NC/AT. EYES - PERRL with EOMI bilaterally. Sclera anicteric. EARS - No deformities of external structures noted on gross examination bilaterally. NOSE - Midline and without cyanosis. No epistaxis or purulent drainage noted. MOUTH/OROPHARYNX - ETT/OGT in place. Without perioral cyanosis. NECK - Neck with FROM. Supple to palpation. No nuchal rigidity. LUNGS - Chest wall symmetric without accessory muscle use, intercostals retractions, or central cyanosis. Normal vesicular breath sounds CTA B/L. No wheezes, rales, or rhonchi appreciated. CARDIAC - RRR with S1/S2. No murmur, rubs, or gallops appreciated. ABDOMEN - Abdominal contour flat without pulsations or visible masses. BS normoactive all four quadrants. No tenderness, palpable masses, hepatosplenomegaly, or ascites noted. EXTREMITIES - No clubbing or peripheral cyanosis. No pretibial edema present. +3/5 radial and dorsalis pedis pulses palpated throughout. NEUROLOGIC - No focal neurological deficits noted. Unable to assess further secondary to sedation. Results & Data Results & Data ([facility]) Vital Signs (Past 12 Hours) Vital Signs Temp Pulse Resp BP Pulse Ox 03/26/22 22:30 63 24 132/69 03/26/22 22:15 61 24 108/61 99 03/26/22 22:01 59 L 28 H 109/75 100 03/26/22 22:00 59 L 24 100 03/26/22 21:50 59 L 24 120/63 100 03/26/22 21:45 58 L 24 100 03/26/22 21:42 58 L 24 99/55 L 99 03/26/22 21:40 62 24 100 03/26/22 21:36 57 L 24 90/54 L 100 03/26/22 21:35 58 L 26 H 100 03/26/22 21:31 58 L 24 77/52 L 100 03/26/22 21:30 56 L 24 100 03/26/22 21:26 58 L 24 86/59 L 100 03/26/22 21:25 57 L 24 100 03/26/22 21:20 58 L 25 H 109/67 100 03/26/22 21:15 60 25 H 97/68 L 100 03/26/22 21:10 63 26 H 86/59 L 100 03/26/22 21:07 63 24 75/49 L 99 03/26/22 21:05 64 24 77/53 L 100 03/26/22 21:00 67 24 75/54 L 100 03/26/22 20:55 66 25 H 91/61 L 100 03/26/22 20:51 66 24 106/69 100 03/26/22 20:50 67 24 100 03/26/22 20:48 71 24 147/86 H 100 03/26/22 20:46 72 24 142/99 H 100 03/26/22 20:45 68 24 100 03/26/22 20:42 72 24 99 03/26/22 20:40 67 25 H 146/81 H 100 03/26/22 20:36 70 24 141/84 H 99 03/26/22 20:35 68 24 98 03/26/22 20:31 69 24 159/86 H 97 03/26/22 20:30 68 99 03/26/22 20:26 69 17 152/77 H 100 03/26/22 20:25 70 24 98 03/26/22 20:21 71 22 173/86 H 98 03/26/22 20:20 71 29 H 98 03/26/22 20:18 69 25 H 184/89 H 98 03/26/22 19:55 75 25 H 151/84 H 98 03/26/22 19:52 98 03/26/22 19:51 76 24 155/86 H 99 03/26/22 19:50 71 24 99 03/26/22 19:46 77 24 177/99 H 99 03/26/22 19:45 77 24 100 03/26/22 19:43 24 99 03/26/22 19:42 99 03/26/22 19:41 90 25 H 206/129 H 99 03/26/22 19:40 83 25 H 99 03/26/22 19:35 91 H 25 H 219/127 H 99 03/26/22 19:30 77 25 H 232/147 H 100 03/26/22 19:26 102 H 24 225/146 H 100 03/26/22 19:25 103 H 24 94 03/26/22 19:20 96 H 24 147/83 H 99 03/26/22 19:15 99 H 24 100 03/26/22 18:59 37.0 C 78 22 179/91 H 98 Coding Level of Care Code Critical Care 1st 30-74 mins Diagnoses Admitted to intensive care unit Z78.9 Acute respiratory failure with hypoxia and hypercarbia J96.01; J96.02 Altered mental status R40.2422 Altered mental status type: coma Coma depth: [place] coma 9-12 Coma timing: at arrival to emergency department Pulmonary embolism I26.99 Acute cor pulmonale presence: unspecified Chronicity: acute Pulmonary embolism type: unspecified Elevated troponin I level R77.8 Time Spent (min) 35 (1) Altered mental status Altered mental status type: coma Coma depth: [place] coma 9-12 Coma timing: at arrival to emergency department Qualified Code(s): R40.2422 - Ty coma scale score 9-12, at arrival to emergency department (2) Pulmonary embolism Acute cor pulmonale presence: unspecified Chronicity: acute Pulmonary embolism type: unspecified Qualified Code(s): I26.99 - Other pulmonary embolism without acute cor pulmonale
[2022-03-26] MEDS ORDERED: fentaNYL citrate 100 MCG/2 ML VIAL IV PRN (23:53)
[2022-03-26 23:55] LABS: iSTAT Allen Test Pass; iSTAT Art Bld Gas pCO2 Correct 52 mmHg (35-46); iSTAT Art Bld Gas pH Corrected 7.401 (7.35-7.45); iSTAT Arterial Blood Gas HCO3 32 meg/L (19-24); iSTAT Arterial Blood Gas pCO2 52 mmHg (35-46); iSTAT Arterial Blood Gas pO2 57 mmHg (80-95); iSTAT Arterial Blood Gas pO2 C 57; iSTAT Carbon Dioxide 34 mmol/L (24-31); iSTAT FiO2 40 %; iSTAT Hematocrit 40 % (37-47); iSTAT Hemoglobin 13.6 g/dl (12.0-16.0); iSTAT Potassium 3.9 mmol/L (3.3-5.0); iSTAT Site R Radial; iSTAT Sodium 133 mmol/L (135-144)
[2022-03-27] MEDS ORDERED: ENOXAPARIN INJ 40 MG/0.4 ML SYR SQ SCH
[2022-03-27] MEDS ORDERED: DOXYCYCLINE HYCLATE 100 MG in DEXTROSE 5% 100 ML IV SCH
[2022-03-27] MEDS: IPRATROPIUM BROMIDE NEB SOLN 0.02% 2.5 ML VIAL INH SCH ×4 (00:36→19:42)
[2022-03-27] MEDS: LEVALBUTEROL 1.25MG/0.5ML NEB INH SCH ×3 (00:37→13:25)
[2022-03-27] MEDS ORDERED: XOPENEX/ATROVENT 1.25mg/0.5MG NEB COMBO NEB SCH (01:00)
[2022-03-27] MEDS ORDERED: STAT IV Infusion **Titration per Protocol STA (01:58)
[2022-03-27] MEDS ORDERED: PROPOFOL BOLUS FROM BAG IV PRN (01:58)
[2022-03-27] MEDS ORDERED: propofoL 1,000 MG/100 ML VIAL IV SCH (02:00)
[2022-03-27] MEDS: PIPERACILLIN/TAZOBACTAM 4.5 GM in DEXTROSE 5% 100 ML IV SCH ×2 (02:57→10:40)
--- NOTE | 2022-03-27 03:22 | History and Physical Report ---
DATE OF ADMISSION: 03/26/2022. CHIEF COMPLAINT: Altered mental status, dezqc-[id number]-bwdqcpd respiratory failure. HISTORY OF PRESENT ILLNESS: This is a 76-year-old female with past medical history of COPD, three weeks ago she was started on 1 liter oxygen at all times; history of hypothyroidism; hyperlipidemia; hypertension; bronchitis; depression; prediabetic; CAD status post stent. She lives in [place] with her daughter. Recently, her son brought her to visit them and also her brother who lives in [place]. As per son and his family, the patient was not talking much, not eating or drinking, and today she was getting progressively lethargic. Only medication she did not bring from [place] is Trelegy medication. Son saw her take an inhaler yesterday and today she was sleeping and she was not waking up and they were concerned about the lower extremity swelling, so EMS was called. The patient in the ER oxygen sats in high 80s on 6 liters and was placed on nonrebreather and she was responding to only painful stimuli and the patient's ABG showed CO2 retention. The patient was intubated, currently intubated and sedated. All the history was got from the family, the son and daughter on the phone. As per daughter, no hospitalizations for COPD and the patient smoked 1 pack a day for several years, but quit about a couple of weeks ago. No alcohol history. Apparently, she was doing fine in [place].No complaints of any pain. ALLERGIES: POLLEN EXTRACTS. PAST MEDICAL HISTORY: As mentioned above. PAST SURGICAL HISTORY: None as per the family. MEDICATIONS: Albuterol 2 puffs inhalation q. 4 hours p.r.n., amlodipine 5 mg p.o. daily, atenolol 25 mg p.o. daily, Trelegy Ellipta 1 inhalation daily, levothyroxine 50 mcg p.o. a.m., loratadine 10 mg p.o. daily, multivitamins 1 tablet p.o. daily, nicotine gums as directed, Nitrostat 0.4 mg sublingual p.r.n., rosuvastatin 20 mg p.o. p.m., sertraline 25 mg p.o. daily. FAMILY HISTORY: Unobtainable at this time. SOCIAL HISTORY: He used to smoke 1 pack a day for several years, quit 2 weeks ago. No alcohol history. The patient lives in [place] with her daughter just visiting her son. REVIEW OF SYSTEMS: Unobtainable at this time. PHYSICAL EXAMINATION: GENERAL: The patient is status post intubation and sedated. VITAL SIGNS: Temperature 37, pulse 62, respiratory rate 22, blood pressure 90/54, oxygen 100% on mechanical vent. HEENT: Pupils are pinpoint, very sluggish to reactive. NECK: No obvious neck masses seen. CARDIOVASCULAR: S1 and S2 heard. Regular rate and rhythm. No murmur, no gallop. RESPIRATORY SYSTEM: Normal AP diameter. No accessory muscle use. Occasional wheezing, no crackles. ABDOMEN: Soft, bowel sounds present, nontender, no distention. CENTRAL NERVOUS SYSTEM: Status post intubated and sedated. EXTREMITIES: Pedal edema present, no erythema seen. LABORATORY DATA: WBC 11.5, hemoglobin 15.9, hematocrit 48.7, platelets 230. PT 10.4, INR 1, APTT 24.2. PH when she came in was 7.31, Now PH 7.4, pCO2 when she came in was 85, currently repeat pCO2 is 49, bicarbonate when she came in was 43, repeat bicarbonate is 34. Sodium is 135, potassium 4.7, chloride 92, CO2 of 40, BUN 34, creatinine 0.7, serum glucose 131. Lactate 0.5, calcium 9.4, magnesium 2.1, total bilirubin 0.5, AST 33, ALT 23, alkaline phosphatase 56. Troponin I high sensitivity 150. Procalcitonin 0.14. Urinalysis, +1 bilirubin. negative for bacteria. Respiratory BioFire panel negative. IMAGING DATA: CTA chest shows small segmental and subsegmental right-sided pulmonary emboli, satisfactory position of endotracheal tubes, suspicious 1.5 cm left lower lobe nodule, followup with pulmonology needed, severe emphysema with bronchitis, tracheobronchial secretions, bibasilar mucus plugging, mild dependent right greater than left basilar consolidation in the mid to lower lung zone, predominant bilateral tree-in-bud nodules compatible with infectious inflammatory bronchiolitis. Age-indeterminate thoracic compression deformity, favored to be chronic. CT of the head, no acute intracranial abnormalities. Chest x-ray, endotracheal tube 2.3 cm above astrid, emphysema, mild bibasilar opacities. EKG: Sinus rhythm with short IL at a rate of 69, left anterior fascicular block, nonspecific ST abnormalities. ASSESSMENT AND PLAN: This 76-year-old female is from [place], visiting her son, found to be in altered mental status and brought to the hospital and found to be in [id number] hypoxic and hypercarbic respiratory failure. 1. Ugdfw-fj-gxpztsc hypoxic and hypercarbic respiratory failure, mostly secondary to chronic obstructive pulmonary disease exacerbation. Possible pneumonia, possible aspiration. The patient is on 1 liter oxygen 3 weeks ago. Will admit to ICU. Vent management as per critical care. Nebs around the clock and p.r.n. IV Zosyn and IV doxycycline. Follow the cultures. IV Solu-Medrol 40 mg t.i.d. Follow the repeat ABGs. Extubation as per critical care. Lung nodule on the CT scan, follow up with Pulmonary. 2. Pulmonary embolism. Started on iv heparin. recent travel. Will follow echo and lower extremity doppler. 3. Elevated troponin: Troponin I high sensitivity is 150, possibly from demand ischemia. Follow serial enzymes, echocardiogram. EKG, no acute findings. 4. Lower extremity edema, etiology unclear. Will follow the echocardiogram. Albumin level is okay.Will check lower extremity doppler. 5. History of coronary artery disease, status post stent: Continue her beta tristan. Withholding parameters. The patient is on statin. 5. Hyperthyroidism: Continue Synthroid. 6. Hypertension: On amlodipine and atenolol. 7. Hyperlipidemia: On statin. 8. Depression: On Zoloft. 9. Deep venous thrombosis prophylaxis: on iv heparin. DISPOSITION: Closely monitor in the ICU. Level 1 full code. Closely monitor. Job ID: [id number] [facility]
[2022-03-27 05:09] LABS: Hematocrit (blood only) 40.5 % (37-47); Hemoglobin 13.2 g/dL (12.0-16.0); Immature Granulocytes # (auto) 0.03 K/uL (0.00-0.02); Immature Granulocytes % (auto) 0.3 %; Lymphocytes # (auto) 0.43 K/uL (1.2-3.4); Lymphocytes % (auto) 4.7 %; Mean Corpuscular Hemoglobin 30.3 pg (25-34); Mean Corpuscular Hgb Conc 32.6 g/dL (32-36); Mean Corpuscular Volume 93.1 fL (80-100); Mean Platelet Volume 9.9 fL (7.4-10.4); Monocytes # (auto) 0.75 K/uL (0.11-0.59); Monocytes % (auto) 8.2 %; Neutrophils # (auto) 7.93 K/uL (1.4-6.5); Neutrophils % (auto) 86.8 %; Platelet Count 221 K/uL (130-400); RDW Coefficient of Variation 13.6 % (11.5-14.5); RDW Standard Deviation 46.5 fL (36.4-46.3); Red Blood Count 4.35 M/uL (4.2-5.4); White Blood Count 9.14 K/uL (4.8-10.8)
[2022-03-27 05:27] LABS: iSTAT Allen Test Pass; iSTAT Arterial Blood Gas HCO3 34 meg/L (19-24); iSTAT Arterial Blood Gas pCO2 47 mmHg (35-46); iSTAT Arterial Blood Gas pH 7.46 (7.35-7.45); iSTAT Arterial Blood Gas pO2 68 mmHg (80-95); iSTAT Carbon Dioxide 35 mmol/L (24-31); iSTAT FiO2 50 %; iSTAT Site R Radial
[2022-03-27 05:39] LABS: Partial Thromboplastin Ratio > 5.1
[2022-03-27 05:47] LABS: BUN Creatinine Ratio 41.9 (10-20); Calcium 8.4 mg/dl (8.5-10.1); Creatinine Clr Calc Pharmacy 67.2 ml/min; Est GFR (African American) 92.5 ml/min; Est GFR (Non-African American) 79.8 ml/min; Magnesium 1.7 mg/dl (1.7-2.4); Potassium 3.7 mmol/L (3.5-5.1)
[2022-03-27 05:49] LABS: Partial Thromboplastin Time > 139.0 Seconds (21.0-31.0)
[2022-03-27] MEDS: LEVOTHYROXINE SODIUM 50 MCG TABLET PO SCH (06:00)
[2022-03-27] MEDS ORDERED: LEVALBUTEROL HCL 1.25 MG/3 ML NEB ONE ×2 (07:08→12:43)
--- NOTE | 2022-03-27 07:28 | Ultrasound Report ---
US venous doppler LE BI CLINICAL HISTORY: Bilateral leg pain and swelling. Reported pulmonary embolus. COMPARISON: None available at the time of this dictation. TECHNIQUE: Bilateral lower extremity real-time compression venous ultrasound with Color Doppler imagi ng. Utilizing real-time ultrasonic imaging multiple real time high-resolution ultrasonic images with comp ression and noncompression maneuvers of the deep venous system in addition to color doppler imaging w ere performed from the common femoral vein through the proximal calf veins. FINDINGS: Currently there is normal compressibility of the deep venous system from the common femoral vein thro ugh the proximal calf veins. No current evidence of acute thrombosis is identified. Impression: No evidence of deep venous thrombus. ACT 112: Negative or not required by law. Electronically signed by: Bebeto Beverly M.D. 03/27/2022 7:27 AM
[2022-03-27] MEDS: UMECLIDINIUM/VILANTEROL 62.5/25MCG 7 PUFFS/INHALER INH SCH (08:12)
[2022-03-27] MEDS: FLUTICASONE FUROATE 200MCG 14 PUFFS/INHALER INH SCH (08:12)
[2022-03-27 08:15] LABS: Partial Thromboplastin Time 28.6 Seconds (21.0-31.0)
[2022-03-27] MEDS: amLODIPine BESYLATE 5 MG TAB PO SCH (08:23)
[2022-03-27] MEDS: MULTI VIT W/MINERALS LIQUID 15 ML UDP PO SCH (08:23)
[2022-03-27] MEDS: LORATADINE 10 MG TAB PO SCH (08:24)
[2022-03-27] MEDS: SERTRALINE HCL 50 MG TABLET PO SCH (08:24)
[2022-03-27] MEDS: ATENOLOL 25 MG TABLET PO SCH (08:24)
--- NOTE | 2022-03-27 08:52 | XRay Report ---
XR chest 1V portable CLINICAL HISTORY: Status post extubation. Follow-up COPD.. COMPARISON STUDY: No previous studies for comparison. TECHNIQUE: 1 view of the chest FINDINGS: Single frontal view of the chest demonstrates the cardiomediastinal silhouette to be within normal li mits. Compared to the previous study, endotracheal tube has been removed. There is a decreased inspir atory effort with elevation of the hemidiaphragms and crowding of the bronchovascular markings at the lung bases and centrally. There is again underlying COPD. There is no evidence for pleural effusion. There is no evidence for vascular congestion. There is no acute osseous pathology. IMPRESSION: 1. Status post extubation with decreased inspiration and crowding of the bronchovascular markings at the lung bases. 2. Otherwise, no acute chest disease. ACT 112: Negative or not required by law. Electronically signed by: Bebeto Beverly M.D. 03/27/2022 8:51 AM
[2022-03-27] MEDS ORDERED: methylPREDNISolone 40 MG in SYRINGE 0 ML IV SCH (09:00)
[2022-03-27] MEDS ORDERED: NON-FORMULARY MEDICATION (Fluticasone-Umeclidin-Vilanter [Trelegy Ellipta] 200-62.5-25 mcg INH SCH (09:00)
--- NOTE | 2022-03-27 10:05 | Critical Care Progress Note ---
Date of Service March 27, 2022 Assessment & Plan (1) Admitted to intensive care unit: Plan: Reason Critically Ill: 76-year-old female with acute hypoxic respiratory failure with hypercapnia requiring endotracheal intubation and ongoing management in the ICU. NEURO - * Sedation: discontinue today * Pain: discontinue today CARDIAC/VASCULAR - * Elevated troponin: * Likely demand ischemia in the setting of hypoxia and acidemia. * troponin decreasing. * Monitor on tele. * Echo completed report pending RESPIRATORY - * Acute on chronic hypoxic respiratory failure w/ hypercapnia: * In the setting of COPD exacerbation. * Reported 1 L oxygen at baseline * COPD Exacerbation: * Transition to prednisone * De-escalate to single agent Levaquin. * Pulmonary Emboli: * Transition to Lovenox. * Venous duplex negative GI/NUTRITION - * Advance diet as tolerated RENAL/LYTES - * No significant electrolyte derangements. - * Winn in place - Strict I&Os. ENDO - * No h/o DM * Insulin sliding scale added * Continue outpatient Levothyroxine dosing. HEME - * Stable H&H ID - * CAP: * De-escalate to single agent Levaquin LINES/IV ACCESS - * PIVs x3 * OGT * Winn DVT PROPHYLAXIS - * Lovenox * SCDs I have personally spent 40 minutes of critical care time in the direct management of this patient. This is a life/limb threatening event. This includes time spent evaluating patient, direct bedside care, chart review, placing orders, interpretation of diagnostic studies, discussion with consultants, patient, and family members, as well as other required patient management activities. This time is exclusive of all separately billable procedures, and teaching time and separate from and in addition to any other critical care service time. Patient was discussed on multidisciplinary rounds (2) Acute respiratory failure with hypoxia and hypercarbia: (3) Altered mental status: (4) Pulmonary embolism: (5) Elevated troponin I level: Admission and Anticipated Discharge Date Admission Date: March 26, 2022 Subjective Extubated this morning. Review of Systems Review of Systems: Unobtainable due to endotracheal tube Physical Exam Physical Exam: General: Following simple commands. nontoxic. Skin: Warm, dry, Head: Atraumatic Ears, nose, mouth and throat: airway obscured by endotracheal tube Cardiovascular: Normal peripheral perfusion Respiratory: Ventilator settings reviewed Gastrointestinal: Non distended Musculoskeletal: No deformity Results & Data Results & Data ([facility]) Vital Signs (Past 12 Hours) Vital Signs Temp Pulse Pulse Resp BP BP Pulse Ox 03/27/22 07:10 77 22 95 03/27/22 04:55 22 03/27/22 04:00 68 21 98/59 L 99 03/27/22 03:46 71 24 98 03/27/22 03:00 71 21 118/61 100 03/27/22 02:00 69 21 111/58 L 99 03/27/22 01:23 68 24 127/69 99 03/27/22 01:02 71 24 100 03/27/22 00:50 68 24 100 03/27/22 00:39 73 24 99 03/27/22 00:14 36.6 C 66 18 100/65 99 03/27/22 00:00 69 63 18 108/64 100 03/26/22 23:59 69 03/26/22 23:55 36.6 C 63 16 90/64 L 93 03/26/22 23:35 36.6 C 63 12 65/40 L 97 03/26/22 23:21 69 03/26/22 23:00 67 24 96 03/26/22 22:30 63 24 132/69 03/26/22 22:15 61 24 108/61 99 Critical Care Results & Data Vital Signs (Past 12 Hours) Vital Signs Temp Pulse Pulse Resp BP BP Pulse Ox 03/27/22 07:10 77 22 95 03/27/22 04:55 22 03/27/22 04:00 68 21 98/59 L 99 03/27/22 03:46 71 24 98 03/27/22 03:00 71 21 118/61 100 03/27/22 02:00 69 21 111/58 L 99 03/27/22 01:23 68 24 127/69 99 03/27/22 01:02 71 24 100 03/27/22 00:50 68 24 100 03/27/22 00:39 73 24 99 03/27/22 00:14 36.6 C 66 18 100/65 99 03/27/22 00:00 69 63 18 108/64 100 03/26/22 23:59 69 03/26/22 23:55 36.6 C 63 16 90/64 L 93 03/26/22 23:35 36.6 C 63 12 65/40 L 97 03/26/22 23:21 69 03/26/22 23:00 67 24 96 03/26/22 22:30 63 24 132/69 Lab & Micro Results (Past 24 Hours) RBC 4.35 M/uL (4.2-5.4) 03/27/22 WBC 9.14 K/uL (4.8-10.8) 03/27/22 Hgb 13.2 g/dL (12.0-16.0) 03/27/22 Hct 40.5 % (37-47) 03/27/22 MCV 93.1 fL (80-100) 03/27/22 MCH 30.3 pg (25-34) 03/27/22 MCHC 32.6 g/dL (32-36) 03/27/22 RDW Standard Deviation 46.5 fL (36.4-46.3) H 03/27/22 RDW Coefficient of Variation 13.6 % (11.5-14.5) 03/27/22 Plt Count 221 K/uL (130-400) 03/27/22 MPV 9.9 fL (7.4-10.4) 03/27/22 Neutrophils (%) (Auto) 86.8 % 03/27/22 Lymphocytes (%) (Auto) 4.7 % 03/27/22 Monocytes # (Auto) 0.75 K/uL (0.11-0.59) H 03/27/22 Eosinophils # (Auto) 0.00 K/uL (0-0.5) 03/27/22 Immature Granulocyte % (Auto) 0.3 % 03/27/22 Neutrophils # (Auto) 7.93 K/uL (1.4-6.5) H 03/27/22 Lymphocytes # (Auto) 0.43 K/uL (1.2-3.4) L 03/27/22 Monocytes # (Auto) 0.75 K/uL (0.11-0.59) H 03/27/22 Eosinophils # (Auto) 0.00 K/uL (0-0.5) 03/27/22 Basophils # (Auto) 0.00 K/uL (0-0.2) 03/27/22 Immature Granulocyte # (Auto) 0.03 K/uL (0.00-0.02) H 03/27/22 Na 132 mmol/L (136-145) L 03/27/22 K 3.7 mmol/L (3.5-5.1) 03/27/22 Cl 92 mmol/L (98-107) L 03/27/22 CO2 32 mmol/L (21-32) 03/27/22 Anion Gap 8 (3-11) 03/27/22 BUN 31 mg/dl (6-23) H 03/27/22 Creatinine 0.74 mg/dl (0.6-1.2) 03/27/22 Estimated GFR ( Amer) 92.5 ml/min 03/27/22 Estimated GFR (Non-Af Amer) 79.8 ml/min 03/27/22 BUN/Creatinine Ratio 41.9 (10-20) H 03/27/22 Glu 256 mg/dl (70-99(Fasting)) H 03/27/22 Ca 8.4 mg/dl (8.5-10.1) L 03/27/22 Total Bilirubin 0.5 mg/dl (0.2-1.0) 03/26/22 AST 33 U/L (13-39) 03/26/22 ALT 23 U/L (7-52) 03/26/22 Alkaline Phosphatase 56 U/L (34-104) 03/26/22 TP 7.1 gm/dl (6.0-8.3) 03/26/22 Albumin 3.9 gm/dl (3.4-5.0) 03/26/22 Globulin 3.2 gm/dl (2.5-4.0) 03/26/22 Albumin/Globulin Ratio 1.2 (0.9-2) 03/26/22 Mg 1.7 mg/dl (1.7-2.4) 03/27/22 04:46 03/27/22 Calcium Level 8.4 mg/dl (8.5-10.1) L 03/27/22 04:46 03/27/22 Prothromb Time International Ratio 1.0 (0.9-1.1) 03/26/22 19:17 03/26/22 Venous Blood pH 7.17 (7.36-7.41) L 03/26/22 19:17 03/26/22 Venous Blood Partial Pressure CO2 113 mmHg (38-50) H 03/26/22 19:17 03/26/22 Venous Blood Partial Pressure O2 62 mmHg 03/26/22 19:17 03/26/22 Venous Blood HCO3 41 mmol/L 03/26/22 19:17 03/26/22 Venous Blood Base Excess 6.9 mEq/L 03/26/22 19:17 03/26/22 Venous Blood Oxygen Saturation 88.6 % 03/26/22 19:17 03/26/22 Blood Gas Barometric Pressure 729.4 mm/Hg 03/26/22 19:17 03/26/22 Satnam Test Pass 03/27/22 04:51 03/27/22 Blood Gas Barometric Pressure 729.4 mm/Hg 03/26/22 19:17 03/26/22 Diagnostic Findings (Past 24 Hours) Chest X-Ray 03/26/22 19:03 XR chest 1V portable HISTORY: 76 years-old Female SEPSIS acute sepsis with respiratory failure COMPARISON: None TECHNIQUE: Portable AP view of the chest FINDINGS: Endotracheal tube overlies the midline, 2.3 cm superior to the astrid. Atherosclerosis of the aorta. The heart is upper limits of normal in size. Emphysema. No pneumothorax or large pleural effusion. Left greater than right interstitial coarsening with mild bibasilar airspace opacities. Degenerative changes of the shoulders and spine. IMPRESSION: 1. Endotracheal tube terminates 2.3 cm superior to the astrid. 2. Emphysema with left greater than right interstitial coarsening and mild bibasilar opacities. ACT 112: Negative or not required by law. The above report was generated using voice recognition software. It may contain grammatical, syntax or spelling errors. Electronically signed by: Marcio Alarcon M.D. 03/26/2022 7:[address] 03/26/22 19:03 CT head/brain wo con CLINICAL HISTORY: 76 years-old Female with AMS. Acutely altered mental status TECHNIQUE: Multiple axial CT images of the head were obtained without contrast. A dose lowering technique was utilized adhering to the principles of ALARA. CT DOSE: 537.48 mGy.cm COMPARISON: Chest radiograph of same day FINDINGS: No acute intracranial hemorrhage, midline shift, intracranial mass, hydrocephalus, territorial ischemia or abnormal extra-axial collection. Cerebral vascular calcifications. Age-related involutional changes. White matter hypodensities suggest chronic microvascular ischemic disease. The calvarium is intact. Endotracheal tube with nasopharyngeal secretions. Mild mucosal thickening of the ethmoid air cells. The mastoid air cells are clear. Unremarkable soft tissues and orbits. IMPRESSION: No acute intracranial abnormality. ACT 112: Negative or not required by law. The above report was generated using voice recognition software. It may contain grammatical, syntax or spelling errors. Electronically signed by: Marcio Alarcon M.D. 03/26/2022 8:22 PM Chest CTA 03/26/22 20:07 CT angio chest PE protocol CT DOSE: 429.21 mGy.cm HISTORY: 76 years-old Female with PE. Acute respiratory failure TECHNIQUE: Multiple CTA images of the chest were obtained after the intravenous administration of 170 ml Optiray. Coronal and sagittal MIPS were obtained from the axial data set and were submitted for review. All measurements were obtained according to NASCET criteria. A dose lowering technique was utilized adhering to the principles of ALARA. COMPARISON: Chest radiograph of same day FINDINGS: CTA: The heart is normal in size. Extensive coronary artery calcifications. Trace pericardial effusion. Atherosclerosis of the thoracic aorta without aneurysm. There is patency of the imaged great vessels. Satisfactory opacification of the pulmonary arterial with reflux into the IVC. There are a few small segmental and subsegmental pulmonary emboli noted in the right middle and lower lobes. No central pulmonary emboli identified. No evidence of right heart strain. CT CHEST: No thyroid nodule. Prominent paratracheal with mildly enlarged subcarinal lymph nodes measure up to 10 mm. Subcentimeter bilateral hilar adenopathy. An endotracheal tube is present within the trachea, 1.7 cm superior to the astrid. Enteric tube courses into the stomach with distal tip outside the [id number]. There is a suspicious subpleural solid nodule within the left lower lobe on image 116 measures 1.5 x 1.2 x 1.5 cm. Severe emphysema. Moderate bronchial wall thickening with multifocal mucus plugging. Bibasilar predominate multifocal tree-in-bud nodules. Subsegmental right greater than left bibasilar dependent consolidation. Tracheobronchial secretions. The study is degraded by respiratory motion artifact. Nonspecific mild distal esophageal wall thickening. There is moderate thickening of the adrenal glands suggestive of hyperplasia. 3.4 cm hypodense lesion of the superior pole right kidney is incompletely characterized however suggests a probable cyst. Unremarkable soft tissues. Degenerative changes of the spine and shoulders. Age-indeterminate moderate T4, T8 and T9 compression deformities without retropulsion or definite paravertebral edema. Midthoracic levoscoliosis. IMPRESSION: 1. Small segmental and subsegmental right-sided pulmonary emboli. 2. Satisfactory positioning of the endotracheal and enteric tubes. 3. Suspicious 1.5 cm left lower lobe pulmonary nodule. Follow-up with pulmonology is needed. 4. Severe emphysema with bronchitis. Tracheobronchial secretions with bibasilar mucous plugging. 5. Mild dependent right greater than left bibasilar consolidation with mid to lower lung zone predominant bilateral tree-in-bud nodules compatible with an infectious or inflammatory bronchiolitis. 6. Age-indeterminate thoracic compression deformities are favored to be chronic. ACT 112: Negative or not required by law. The above report was generated using voice recognition software. It may contain grammatical, syntax or spelling errors. Electronically signed by: Marcio Alarcon M.D. 03/26/2022 8:37 PM Venous Doppler Study 03/27/22 00:51 US venous doppler LE CLINICAL HISTORY: Bilateral leg pain and swelling. Reported pulmonary embolus. COMPARISON: None available at the time of this dictation. TECHNIQUE: Bilateral lower extremity real-time compression venous ultrasound with Color Doppler imaging. Utilizing real-time ultrasonic imaging multiple real time high-resolution ultrasonic images with compression and noncompression maneuvers of the deep venous system in addition to color doppler imaging were performed from the common femoral vein through the proximal calf veins. FINDINGS: Currently there is normal compressibility of the deep venous system from the common femoral vein through the proximal calf veins. No current evidence of acute thrombosis is identified. Impression: No evidence of deep venous thrombus. ACT 112: Negative or not required by law. Electronically signed by: Bebeto Beverly M.D. 03/27/2022 7:27 AM Chest X-Ray 03/27/22 07:00 XR chest 1V portable CLINICAL HISTORY: Status post extubation. Follow-up COPD.. COMPARISON STUDY: No previous studies for comparison. TECHNIQUE: 1 view of the chest FINDINGS: Single frontal view of the chest demonstrates the cardiomediastinal silhouette to be within normal limits. Compared to the previous study, endotracheal tube has been removed. There is a decreased inspiratory effort with elevation of the hemidiaphragms and crowding of the bronchovascular markings at the lung bases and centrally. There is again underlying COPD. There is no evidence for pleural effusion. There is no evidence for vascular congestion. There is no acute osseous pathology. IMPRESSION: 1. Status post extubation with decreased inspiration and crowding of the bronchovascular markings at the lung bases. 2. Otherwise, no acute chest disease. ACT 112: Negative or not required by law. Electronically signed by: Bebeto Beverly M.D. 03/27/2022 8:51 AM I & O Totals 24 Hours 03/26/22 03/27/22 03/28/22 06:59 06:59 06:59 Intake Total 2031.513 / 2031.513 155.467 / 155.467 Output Total 700 / 700 Balance 1331.513 / 1331.513 155.467 / 155.467 Cumulative 03/26/22 18:39 thru 03/27/22 08:21 Intake Total 2186.980 Output Total 700 Balance 1486.980 RT Ventilator Mngmt (Last Documented) Ventilator Ordered Settings Ventilator Support Mode Assist Control 03/27/22 07:10 Respiratory Rate 22 03/27/22 07:10 Ventilator Tidal Volume 400 03/27/22 07:10 Setting Minute Ventilation 8.8 03/27/22 07:10 Positive End Expiratory 5 03/27/22 07:10 Pressure Fraction of Inspired Oxygen 45 03/27/22 07:10 Machine Comment settings changed post ABG. Cuate 03/26/22 20:42 MD approved Ventilator - PT Measurements Respiratory Rate 22 Exhaled Tidal Volume 400 Minute Ventilation 8.8 Peak Inspiratory Airway 26 Pressure Plateau Pressure 16 Respiratory Cycle Inspiratory: 1:2.9 Expiratory Ratio Inspiratory Phase Time 0.7 End-Tidal CO2 23 Static Lung Compliance 36.36 Dynamic Lung Compliance 19.05 Normal Static Lung Compliance 45.00 Patient Measurements Comment Vent changes per S. JORGE A Lao post-ABG. Coding Level of Care Code Critical Care 1st 30-74 mins Diagnoses Admitted to intensive care unit Z78.9 Acute respiratory failure with hypoxia and hypercarbia J96.01; J96.02 Altered mental status R40.2422 Altered mental status type: coma Coma depth: [place] coma 9-12 Coma timing: at arrival to emergency department Pulmonary embolism I26.99 Acute cor pulmonale presence: unspecified Chronicity: acute Pulmonary embolism type: unspecified Elevated troponin I level R77.8 (1) Altered mental status Altered mental status type: coma Coma depth: [place] coma 9-12 Coma timing: at arrival to emergency department Qualified Code(s): R40.2422 - [place] coma scale score 9-12, at arrival to emergency department (2) Pulmonary embolism Acute cor pulmonale presence: unspecified Chronicity: acute Pulmonary embolism type: unspecified Qualified Code(s): I26.99 - Other pulmonary embolism without acute cor pulmonale
[2022-03-27] MEDS ORDERED: ENOXAPARIN 1 MG/KG SQ SCH (10:15)
[2022-03-27] MEDS ORDERED: GLUCOSE 40% GEL 15 GM TUBE PO PRN (10:30)
[2022-03-27] MEDS ORDERED: GLUCAGON FOR INJ 1 MG VIAL IM PRN (10:30)
[2022-03-27] MEDS ORDERED: DEXTROSE 50% 50 ML SYRINGE IV PRN (10:30)
[2022-03-27] MEDS ORDERED: GLUCOSE 10 TABS/TUBE PO PRN (10:30)
[2022-03-27] MEDS ORDERED: CARBOHYDRATES FOR HYPOGLYCEMIA PO PRN (10:30)
[2022-03-27] MEDS: ENOXAPARIN 80 MG/0.8 ML SYR SQ SCH ×2 (10:46→20:18)
[2022-03-27] MEDS ORDERED: levoFLOXacin/D5W 750 MG/150 ML BAG IV SCH (11:00)
[2022-03-27] MEDS: INSULIN ASPART PER UNIT SC SCH ×3 (11:32→20:18)
--- NOTE | 2022-03-27 14:50 | Electrocardiogram Report ---
Test Reason : Blood Pressure : / mmHG Vent. Rate : 080 BPM Atrial Rate : 080 BPM P-R Int : 126 ms QRS Dur : 092 ms QT Int : 382 ms P-R-T Axes : 054 -37 085 degrees QTc Int : 440 ms Poor data quality, interpretation may be adversely affected Normal sinus rhythm Left axis deviation Abnormal ECG No previous ECGs available Confirmed by Andre Liriano ([id number]) on 03/27/2022 2:49:45 PM Referred By: REFERRED SELF Confirmed By:Federico Liriano
--- NOTE | 2022-03-27 14:50 | Electrocardiogram Report ---
Test Reason : Blood Pressure : / mmHG Vent. Rate : 069 BPM Atrial Rate : 069 BPM P-R Int : 104 ms QRS Dur : 092 ms QT Int : 434 ms P-R-T Axes : 063 -45 072 degrees QTc Int : 465 ms Sinus rhythm Left anterior fascicular block Nonspecific ST abnormality Abnormal ECG When compared with ECG of 26-MAR-2022 19:03, (unconfirmed) No significant change was found Confirmed by Andre Liriano ([id number]) on 03/27/2022 2:49:54 PM Referred By: REFERRED SELF Confirmed By:Federico Liriano
--- NOTE | 2022-03-27 14:54 | Electrocardiogram Report ---
Test Reason : Blood Pressure : / mmHG Vent. Rate : 070 BPM Atrial Rate : 070 BPM P-R Int : 112 ms QRS Dur : 084 ms QT Int : 436 ms P-R-T Axes : 051 -27 051 degrees QTc Int : 470 ms Normal sinus rhythm Normal ECG When compared with ECG of 26-MAR-2022 20:30, (unconfirmed) No significant change was found Confirmed by Andre Liriano ([id number]) on 03/27/2022 2:53:37 PM Referred By: REFERRED SELF Confirmed By:Federico Liriano
--- NOTE | 2022-03-27 18:54 | Hospitalist Progress Note ---
Date of Service March 27, 2022 Assessment & Plan (1) Acute respiratory failure with hypoxia and hypercarbia: Plan: Present on admission with worsening SOB and lethargy Possible related to COPD exacebation ABG on admission with pH 7.31/ pCO2 85/ PHCO3 43 Pt was intubated on vent support S/P extubated this morning and currently on 4L NC CTA chest showed small segmental and subsegmental right-sided pulmonary emboli. Severe emphysema with bronchitis. Tracheobronchial secretions with bibasilar mucous plugging. received IV Zosyn, Vanco and doxycycline and solumedrol in the in the ER Currently on Levaquin IV IV steroid was discontinued by the production packager Continue monitor closely . Pulmonary embolism. CTA chest showed small segmental and subsegmental right-sided pulmonary emboli. Doppler of LE showed no DVT She was starting on IV heparin drip, then transition lovenox 80mg BID Elevated troponin Mostly due to demand ischemia from hypoxia Initial troponin 150.9 then peak to 157, now trending down to 118 Echo showed no segmental LV wall motion abnormalities denies any chest pain Pt was on IV heparin drip for the PE, then transition to Lovenox continue atenolol and statin Clinically stable Lower extremity edema Doppler of LE showed no evidence of DVT Stable CAD status post stent Continue her beta tristan and statin Hypothyroidism Continue Synthroid. Hypertension: Continue amlodipine and atenolol. Hyperlipidemia Continue statin. Depression Continuie On Zoloft. Deep venous thrombosis prophylaxis on Lovenox BID 80 mg Code status Full code Admission and Anticipated Discharge Date Admission Date: March 26, 2022 Subjective Pt was seen and examined for follow up of SOB Lying in bed with no acute distress Pt was extubated this morning and currently on 4L NC Denies any chest pain, palpitation, dizziness and SOB Review of Systems 2 Review of Systems: All systems reviewed & are unremarkable except as noted in Subjective Physical Exam Physical Exam: General- No acute distress Head- atraumatic Eyes- PERRL, EOMI, ENT- oropharynx clear Neck- supple, no JVD Lungs- diminished BS Heart- regular rhythm; no murmur Abdomen- normal bowel sounds, soft, nontender Extremities- no calf tenderness, +edema Neuro- alert, oriented x 3; PERRL, EOMI; no facial palsy; no dysarthria Skin- warm & dry Results & Data Results & Data ([facility]) Vital Signs (Past 12 Hours) Vital Signs Temp Pulse Pulse Resp BP Pulse Ox 03/27/22 17:00 82 25 H 122/61 92 03/27/22 16:00 77 22 129/57 L 93 03/27/22 15:00 77 24 126/50 L 92 03/27/22 14:00 79 25 H 139/64 90 03/27/22 13:27 75 22 97 03/27/22 13:00 75 23 134/68 95 03/27/22 12:00 77 28 H 139/66 93 03/27/22 11:00 76 27 H 135/66 94 03/27/22 10:00 80 23 148/69 H 95 03/27/22 09:00 93 H 27 H 142/54 H 93 03/27/22 08:33 107 H 27 H 175/69 H 91 03/27/22 08:00 37.4 C 93 H 21 124/60 100 03/27/22 07:31 85 22 107/60 96 03/27/22 07:10 77 22 95 03/27/22 07:00 69 22 128/66 96
[2022-03-27] MEDS: LEVALBUTEROL HCL 1.25 MG/3 ML NEB INH SCH (19:42)
[2022-03-27] MEDS: ROSUVASTATIN CALCIUM 20 MG TAB PO SCH (20:19)
[2022-03-28] MEDS: IPRATROPIUM BROMIDE NEB SOLN 0.02% 2.5 ML VIAL INH SCH ×4 (00:51→19:44)
[2022-03-28] MEDS: LEVALBUTEROL HCL 1.25 MG/3 ML NEB INH SCH ×4 (00:51→19:44)
[2022-03-28] MEDS ORDERED: NORMOSOL-R 1,000 ML IV SCH (02:00)
[2022-03-28 05:22] LABS: Hemoglobin 14.3 g/dL (12.0-16.0); Immature Granulocytes # (auto) 0.03 K/uL (0.00-0.02); Immature Granulocytes % (auto) 0.3 %; Lymphocytes # (auto) 1.01 K/uL (1.2-3.4); Lymphocytes % (auto) 8.8 %; Mean Corpuscular Hemoglobin 30.6 pg (25-34); Mean Corpuscular Hgb Conc 32.5 g/dL (32-36); Mean Platelet Volume 8.9 fL (7.4-10.4); Monocytes # (auto) 1.74 K/uL (0.11-0.59); Monocytes % (auto) 15.1 %; Neutrophils # (auto) 8.76 K/uL (1.4-6.5); Neutrophils % (auto) 75.8 %; Platelet Count 215 K/uL (130-400); RDW Coefficient of Variation 13.8 % (11.5-14.5); RDW Standard Deviation 47.6 fL (36.4-46.3); Red Blood Count 4.68 M/uL (4.2-5.4); White Blood Count 11.54 K/uL (4.8-10.8)
[2022-03-28] MEDS: LEVOTHYROXINE SODIUM 50 MCG TABLET PO SCH (05:44)
[2022-03-28 05:49] LABS: BUN Creatinine Ratio 44.8 (10-20); Calcium 8.8 mg/dl (8.5-10.1); Creatinine Clr Calc Pharmacy 74.2 ml/min; Est GFR (African American) 100.4 ml/min; Est GFR (Non-African American) 86.6 ml/min; Phosphorus 3.2 mg/dl (2.5-4.9); Potassium 3.9 mmol/L (3.5-5.1)
[2022-03-28 07:47] LABS: Estimated Average Glucose 128 mg/dl; Hemoglobin A1C 6.1 % (4.5-5.6)
[2022-03-28] MEDS: INSULIN ASPART PER UNIT SC SCH ×4 (08:38→20:31)
[2022-03-28] MEDS: FLUTICASONE FUROATE 200MCG 14 PUFFS/INHALER INH SCH (09:07)
[2022-03-28] MEDS: ATENOLOL 25 MG TABLET PO SCH (09:08)
[2022-03-28] MEDS: ENOXAPARIN 80 MG/0.8 ML SYR SQ SCH (09:08)
[2022-03-28] MEDS: LORATADINE 10 MG TAB PO SCH (09:08)
[2022-03-28] MEDS: MULTI VIT W/MINERALS LIQUID 15 ML UDP PO SCH (09:08)
[2022-03-28] MEDS: amLODIPine BESYLATE 5 MG TAB PO SCH (09:08)
[2022-03-28] MEDS: SERTRALINE HCL 50 MG TABLET PO SCH (09:09)
[2022-03-28] MEDS: UMECLIDINIUM/VILANTEROL 62.5/25MCG 7 PUFFS/INHALER INH SCH (09:15)
--- NOTE | 2022-03-28 09:57 | Critical Care Progress Note ---
Date of Service March 28, 2022 Assessment & Plan (1) Admitted to intensive care unit: Plan: Reason Critically Ill: 76-year-old female with acute hypoxic respiratory failure with hypercapnia requiring endotracheal intubation and ongoing management in the ICU. CARDIAC/VASCULAR - * Elevated troponin: * Likely demand ischemia in the setting of hypoxia and acidemia. * troponin decreasing. * Monitor on tele. * Echo completed report pending RESPIRATORY - * Acute on chronic hypoxic respiratory failure w/ hypercapnia: * In the setting of COPD exacerbation. * Reported 1 L oxygen at baseline * COPD Exacerbation: * On prednisone * Day 2/5 Levaquin transition to oral * Pulmonary Emboli: * Transition to eliquis * Venous duplex negative GI/NUTRITION - * tolerating diet RENAL/LYTES - * No significant electrolyte derangements. - * Winn: discontinue today ENDO - * No h/o DM * Insulin sliding scale added * Continue outpatient Levothyroxine dosing. HEME - * Stable H&H ID - * CAP: * De-escalate to single agent Levaquin LINES/IV ACCESS - * PIVs x3 * OGT * Winn DVT PROPHYLAXIS - * Lovenox * SCDs Stable for downgrade (2) Acute respiratory failure with hypoxia and hypercarbia: (3) Altered mental status: (4) Pulmonary embolism: (5) Elevated troponin I level: Admission and Anticipated Discharge Date Admission Date: March 26, 2022 Physical Exam Physical Exam: General: Alert. nontoxic. Skin: Warm, dry, Head: Atraumatic Ears, nose, mouth and throat: airway patent Cardiovascular: Normal peripheral perfusion Respiratory: no respiratory distress Gastrointestinal: Non distended Musculoskeletal: No deformity Results & Data Results & Data ([facility]) Vital Signs (Past 12 Hours) Vital Signs Temp Pulse Pulse Resp BP Pulse Ox 03/28/22 07:08 76 18 93 03/28/22 06:00 74 19 146/71 H 95 03/28/22 05:00 70 16 127/62 98 03/28/22 04:00 36.5 C 71 16 134/67 93 03/28/22 03:00 72 18 131/64 98 03/28/22 02:00 78 18 129/63 95 03/28/22 01:00 80 18 143/68 H 98 03/28/22 00:52 80 20 92 03/28/22 00:00 37.3 C 76 16 135/66 94 03/27/22 23:01 76 03/27/22 23:00 77 16 133/62 94 03/27/22 22:00 79 19 122/61 93 Critical Care Results & Data Vital Signs (Past 12 Hours) Vital Signs Temp Pulse Pulse Resp BP Pulse Ox 03/28/22 07:08 76 18 93 03/28/22 06:00 74 19 146/71 H 95 03/28/22 05:00 70 16 127/62 98 03/28/22 04:00 36.5 C 71 16 134/67 93 03/28/22 03:00 72 18 131/64 98 03/28/22 02:00 78 18 129/63 95 03/28/22 01:00 80 18 143/68 H 98 03/28/22 00:52 80 20 92 03/28/22 00:00 37.3 C 76 16 135/66 94 03/27/22 23:01 76 03/27/22 23:00 77 16 133/62 94 03/27/22 22:00 79 19 122/61 93 Lab & Micro Results (Past 24 Hours) RBC 4.68 M/uL (4.2-5.4) 03/28/22 WBC 11.54 K/uL (4.8-10.8) H 03/28/22 Hgb 14.3 g/dL (12.0-16.0) 03/28/22 Hct 44.0 % (37-47) 03/28/22 MCV 94.0 fL (80-100) 03/28/22 MCH 30.6 pg (25-34) 03/28/22 MCHC 32.5 g/dL (32-36) 03/28/22 RDW Standard Deviation 47.6 fL (36.4-46.3) H 03/28/22 RDW Coefficient of Variation 13.8 % (11.5-14.5) 03/28/22 Plt Count 215 K/uL (130-400) 03/28/22 MPV 8.9 fL (7.4-10.4) 03/28/22 Neutrophils (%) (Auto) 75.8 % 03/28/22 Lymphocytes (%) (Auto) 8.8 % 03/28/22 Monocytes # (Auto) 1.74 K/uL (0.11-0.59) H 03/28/22 Eosinophils # (Auto) 0.00 K/uL (0-0.5) 03/28/22 Immature Granulocyte % (Auto) 0.3 % 03/28/22 Neutrophils # (Auto) 8.76 K/uL (1.4-6.5) H 03/28/22 Lymphocytes # (Auto) 1.01 K/uL (1.2-3.4) L 03/28/22 Monocytes # (Auto) 1.74 K/uL (0.11-0.59) H 03/28/22 Eosinophils # (Auto) 0.00 K/uL (0-0.5) 03/28/22 Basophils # (Auto) 0.00 K/uL (0-0.2) 03/28/22 Immature Granulocyte # (Auto) 0.03 K/uL (0.00-0.02) H 03/28/22 Na 135 mmol/L (136-145) L 03/28/22 K 3.9 mmol/L (3.5-5.1) 03/28/22 Cl 94 mmol/L (98-107) L 03/28/22 CO2 36 mmol/L (21-32) H 03/28/22 Anion Gap 5 (3-11) 03/28/22 BUN 30 mg/dl (6-23) H 03/28/22 Creatinine 0.67 mg/dl (0.6-1.2) 03/28/22 Estimated GFR ( Amer) 100.4 ml/min 03/28/22 Estimated GFR (Non-Af Amer) 86.6 ml/min 03/28/22 BUN/Creatinine Ratio 44.8 (10-20) H 03/28/22 Glu 99 mg/dl (70-99(Fasting)) 03/28/22 Ca 8.8 mg/dl (8.5-10.1) 03/28/22 Phosphorus Level 3.2 mg/dl (2.5-4.9) 03/28/22 Mg 2.0 mg/dl (1.7-2.4) 03/28/22 05:07 03/28/22 Calcium Level 8.8 mg/dl (8.5-10.1) 03/28/22 05:07 03/28/22 Microbiology 03/26/22 19:17 Aerobic Blood Culture - Preliminary Blood No growth in Aerobic bottle after 24 hours. Anaerobic Blood Culture - Preliminary No growth in Anaerobic bottle after 24 hours. 03/26/22 19:17 Aerobic Blood Culture - Preliminary Blood Gram positive cocci Anaerobic Blood Culture - Preliminary Gram positive cocci 03/26/22 19:39 Gram Stain - Final Sputum,Vent Suction Sputum Culture - Preliminary Pin-point growth present, reincubating. I & O Totals 24 Hours 03/27/22 03/28/22 03/29/22 06:59 06:59 06:59 Intake Total 2031.513 / 2031.513 618.551 / 618.551 Output Total 700 / 700 635 / 635 Balance 1331.513 / 1331.513 -16.449 / -16.449 Cumulative 03/26/22 18:39 thru 03/28/22 08:17 Intake Total 2650.064 Output Total 1335 Balance 1315.064 RT Ventilator Mngmt (Last Documented) Ventilator Ordered Settings Ventilator Support Mode Assist Control 03/27/22 08:00 Respiratory Rate 18 03/28/22 07:08 Ventilator Tidal Volume 400 03/27/22 08:00 Setting Minute Ventilation 8.8 03/27/22 07:10 Positive End Expiratory 5 03/27/22 08:00 Pressure Fraction of Inspired Oxygen 50 03/27/22 08:00 Machine Comment settings changed post ABG. [place], 03/26/22 20:42 MD approved Ventilator - PT Measurements Respiratory Rate 18 Exhaled Tidal Volume 400 Minute Ventilation 8.8 Peak Inspiratory Airway 26 Pressure Plateau Pressure 16 Respiratory Cycle Inspiratory: 1:2.9 Expiratory Ratio Inspiratory Phase Time 0.7 End-Tidal CO2 31 Static Lung Compliance 36.36 Dynamic Lung Compliance 19.05 Normal Static Lung Compliance 45.00 Patient Measurements Comment PT WAS PLACED ON CPAP BY DR. BOONE. PT EXTUBATED AT THIS TIME PER MD TO 4L NC. PT SUCTIONED PRIOR TO PROCEDURE. TOLERATED WELL. Coding Level of Care Code 98482 Subseq Hosp Care Lvl 3 Diagnoses Admitted to intensive care unit Z78.9 Acute respiratory failure with hypoxia and hypercarbia J96.01; J96.02 Altered mental status R40.2422 Altered mental status type: coma Coma depth: [place] coma 9-12 Coma timing: at arrival to emergency department Pulmonary embolism I26.99 Acute cor pulmonale presence: unspecified Chronicity: acute Pulmonary embolism type: unspecified Elevated troponin I level R77.8 (1) Altered mental status Altered mental status type: coma Coma depth: [place] coma 9-12 Coma timing: at arrival to emergency department Qualified Code(s): R40.2422 - [place] coma scale score 9-12, at arrival to emergency department (2) Pulmonary embolism Acute cor pulmonale presence: unspecified Chronicity: acute Pulmonary embolism type: unspecified Qualified Code(s): I26.99 - Other pulmonary embolism without acute cor pulmonale
[2022-03-28] MEDS ORDERED: levoFLOXacin 750 MG TAB PO SCH (11:00)
--- NOTE | 2022-03-28 20:16 | Hospitalist Progress Note ---
Date of Service March 28, 2022 Assessment & Plan (1) Acute respiratory failure with hypoxia and hypercarbia: Plan: Present on admission with worsening SOB and lethargy Possible related to COPD exacebation ABG on admission with pH 7.31/ pCO2 85/ PHCO3 43 Pt was intubated on vent support on admission S/P extubated on 03/27 and currently on 2L NC CTA chest showed small segmental and subsegmental right-sided pulmonary emboli. Severe emphysema with bronchitis. Tracheobronchial secretions with bibasilar mucous plugging. received IV Zosyn, Vanco and doxycycline and solumedrol in the in the ER Sputum cx showed Moraxella catarrhalis IV Levaquin changed to Augmentin IV steroid was discontinued by the process expert Continue monitor closely . Pulmonary embolism. CTA chest showed small segmental and subsegmental right-sided pulmonary emboli. Doppler of LE showed no DVT She was starting on IV heparin drip, then transition lovenox 80mg BID Lovenox discontinued and transition to Eliquis Elevated troponin Mostly due to demand ischemia from hypoxia Initial troponin 150.9 then peak to 157, now trending down to 118 Echo showed no segmental LV wall motion abnormalities denies any chest pain Pt was on IV heparin drip for the PE, then transition to Lovenox, now on Eliquis continue atenolol and statin Clinically stable Lower extremity edema Doppler of LE showed no evidence of DVT Stable CAD status post stent Continue her beta tristan and statin Hypothyroidism Continue Synthroid. Hypertension: Continue amlodipine and atenolol. Hyperlipidemia Continue statin. Depression Continue On Zoloft. Deep venous thrombosis prophylaxis on Eliquis BID Code status Full code Admission and Anticipated Discharge Date Admission Date: March 26, 2022 Subjective Pt was seen and examined for follow up of SOB Lying in bed with no acute distress Her breathing is much better today She is currently on 2L NC Denies any chest pain, palpitation, dizziness and SOB Review of Systems Review of Systems: All systems reviewed & are unremarkable except as noted in Subjective Physical Exam Physical Exam: General- No acute distress Head- atraumatic Eyes- PERRL, EOMI, ENT- oropharynx clear Neck- supple, no JVD Lungs- diminished BS Heart- regular rhythm; no murmur Abdomen- normal bowel sounds, soft, nontender Extremities- no calf tenderness, +edema Neuro- alert, oriented x 3; PERRL, EOMI; no facial palsy; no dysarthria Skin- warm & dry Results & Data Results & Data ([facility]) Vital Signs (Past 12 Hours) Vital Signs Temp Pulse Pulse Resp BP Pulse Ox 03/28/22 19:44 72 19 92 03/28/22 17:00 71 23 91 03/28/22 16:02 70 23 119/69 94 03/28/22 16:00 36.8 C 72 22 93 03/28/22 15:00 80 21 91 03/28/22 14:00 69 19 115/63 94 03/28/22 13:00 74 27 H 96 03/28/22 12:40 68 18 93 03/28/22 12:01 36.8 C 67 24 116/64 91 03/28/22 12:00 65 24 89 L 03/28/22 11:00 68 19 92 03/28/22 10:00 69 23 122/72 97 03/28/22 09:00 74 21 130/64 94
[2022-03-28] MEDS: ROSUVASTATIN CALCIUM 20 MG TAB PO SCH (20:34)
[2022-03-28] MEDS: APIXABAN 5 MG TABLET PO SCH (20:35)
[2022-03-29] MEDS: LEVALBUTEROL HCL 1.25 MG/3 ML NEB INH SCH ×4 (00:12→19:42)
[2022-03-29] MEDS: IPRATROPIUM BROMIDE NEB SOLN 0.02% 2.5 ML VIAL INH SCH ×4 (00:12→19:41)
[2022-03-29] MEDS: LEVOTHYROXINE SODIUM 50 MCG TABLET PO SCH (05:51)
[2022-03-29 06:54] LABS: BUN Creatinine Ratio 43.9 (10-20); Calcium 8.7 mg/dl (8.5-10.1); Creatinine Clr Calc Pharmacy 87.2 ml/min; Est GFR (African American) 105.8 ml/min; Est GFR (Non-African American) 91.3 ml/min; Potassium 4.5 mmol/L (3.5-5.1)
[2022-03-29] MEDS: INSULIN ASPART PER UNIT SC SCH ×4 (07:55→21:19)
[2022-03-29] MEDS: SERTRALINE HCL 50 MG TABLET PO SCH (08:42)
[2022-03-29] MEDS: APIXABAN 5 MG TABLET PO SCH ×2 (08:42→19:34)
[2022-03-29] MEDS: AMOXICILLIN/CLAVULANATE 875 MG TAB PO SCH ×2 (08:43→19:33)
[2022-03-29] MEDS: FLUTICASONE FUROATE 200MCG 14 PUFFS/INHALER INH SCH (08:43)
[2022-03-29] MEDS: amLODIPine BESYLATE 5 MG TAB PO SCH (08:43)
[2022-03-29] MEDS: ATENOLOL 25 MG TABLET PO SCH (08:44)
[2022-03-29] MEDS: MULTI VIT W/MINERALS LIQUID 15 ML UDP PO SCH (08:45)
[2022-03-29] MEDS: UMECLIDINIUM/VILANTEROL 62.5/25MCG 7 PUFFS/INHALER INH SCH (08:45)
[2022-03-29] MEDS: LORATADINE 10 MG TAB PO SCH (09:42)
[2022-03-29] MEDS ORDERED: FUROSEMIDE INJ 20 MG/2 ML VIAL IV ONE ×2 (12:55→21:03)
--- NOTE | 2022-03-29 17:49 | Electrocardiogram Report ---
Test Reason : Blood Pressure : / mmHG Vent. Rate : 075 BPM Atrial Rate : 075 BPM P-R Int : 126 ms QRS Dur : 094 ms QT Int : 376 ms P-R-T Axes : 077 -27 077 degrees QTc Int : 419 ms Normal sinus rhythm Confirmed by Andre Liriano ([id number]) on 03/29/2022 5:48:46 PM Referred By: REFERRED SELF Confirmed By:Federico Liriano
[2022-03-29] MEDS: ROSUVASTATIN CALCIUM 20 MG TAB PO SCH (19:35)
--- NOTE | 2022-03-29 23:09 | Hospitalist Progress Note ---
Date of Service March 29, 2022 Assessment & Plan (1) Acute respiratory failure with hypoxia and hypercarbia: Plan: Present on admission with worsening SOB and lethargy Possible related to COPD exacebation ABG on admission with pH 7.31/ pCO2 85/ PHCO3 43 Pt was intubated on vent support on admission S/P extubated on 03/27 and currently on 2L NC CTA chest showed small segmental and subsegmental right-sided pulmonary emboli. Severe emphysema with bronchitis. Tracheobronchial secretions with bibasilar mucous plugging. received IV Zosyn, Vanco and doxycycline and solumedrol in the in the ER Sputum cx showed Moraxella catarrhalis IV Levaquin changed to Augmentin IV steroid was discontinued by the clinical data associate Continue Augmentin . Pulmonary embolism. CTA chest showed small segmental and subsegmental right-sided pulmonary emboli. Doppler of LE showed no DVT She was starting on IV heparin drip, then transition lovenox 80mg BID Lovenox discontinued and transition to Eliquis Elevated troponin Mostly due to demand ischemia from hypoxia Initial troponin 150.9 then peak to 157, now trending down to 118 Echo showed no segmental LV wall motion abnormalities denies any chest pain Pt was on IV heparin drip for the PE, then transition to Lovenox, now on Eliquis continue atenolol and statin Clinically stable Lower extremity edema Doppler of LE showed no evidence of DVT Lasix 20mg IV given early, additional 20mg will administer later Stable CAD status post stent Continue her beta tristan and statin Hypothyroidism Continue Synthroid. Hypertension: Continue amlodipine and atenolol. Hyperlipidemia Continue statin. Depression Continue On Zoloft. Deep venous thrombosis prophylaxis on Eliquis BID Code status Full code Admission and Anticipated Discharge Date Admission Date: March 26, 2022 Subjective Pt was seen and examined for follow up of SOB Sitting in chair with no acute distress Pt said that she feels much better She has a poor appetite Currently she is on 4L NC Denies any chest pain, palpitation, dizziness and SOB Review of Systems Review of Systems: All systems reviewed & are unremarkable except as noted in Subjective Physical Exam Physical Exam: General- No acute distress Head- atraumatic Eyes- PERRL, EOMI, ENT- oropharynx clear Neck- supple, no JVD Lungs- diminished BS Heart- regular rhythm; no murmur Abdomen- normal bowel sounds, soft, nontender Extremities- no calf tenderness, +edema Neuro- alert, oriented x 3; PERRL, EOMI; no facial palsy; no dysarthria Skin- warm & dry Results & Data Results & Data ([facility]) Vital Signs (Past 12 Hours) Vital Signs Temp Pulse Pulse Resp BP BP Pulse Ox 03/29/22 22:37 36.6 C 68 20 127/75 95 03/29/22 20:19 92 03/29/22 20:17 36.9 C 71 18 115/74 87 L 03/29/22 19:42 61 18 90 03/29/22 15:31 36.7 C 66 18 103/65 97 03/29/22 13:38 03/29/22 12:24 88 17 91 03/29/22 11:41 36.7 C 69 20 111/71 96 Pulse Ox Pulse Ox Pulse Ox 03/29/22 22:37 03/29/22 20:19 03/29/22 20:17 03/29/22 19:42 03/29/22 15:31 03/29/22 13:38 91 89 L 85 L 03/29/22 12:24 03/29/22 11:41
[2022-03-30] MEDS: LEVALBUTEROL HCL 1.25 MG/3 ML NEB INH SCH ×4 (00:45→19:24)
[2022-03-30] MEDS: IPRATROPIUM BROMIDE NEB SOLN 0.02% 2.5 ML VIAL INH SCH ×4 (00:45→19:24)
[2022-03-30] MEDS: LEVOTHYROXINE SODIUM 50 MCG TABLET PO SCH (05:32)
[2022-03-30] MEDS: INSULIN ASPART PER UNIT SC SCH ×4 (08:09→21:23)
[2022-03-30 08:29] LABS: BUN Creatinine Ratio 39.3 (10-20); Creatinine Clr Calc Pharmacy 89.1 ml/min; Est GFR (African American) 106.5 ml/min; Est GFR (Non-African American) 91.9 ml/min; Potassium 4.3 mmol/L (3.5-5.1)
[2022-03-30] MEDS: APIXABAN 5 MG TABLET PO SCH ×2 (08:42→20:29)
[2022-03-30] MEDS: MULTI VIT W/MINERALS LIQUID 15 ML UDP PO SCH (08:42)
[2022-03-30] MEDS: LORATADINE 10 MG TAB PO SCH (08:43)
[2022-03-30] MEDS: FLUTICASONE FUROATE 200MCG 14 PUFFS/INHALER INH SCH (08:43)
[2022-03-30] MEDS: ATENOLOL 25 MG TABLET PO SCH (08:43)
[2022-03-30] MEDS: UMECLIDINIUM/VILANTEROL 62.5/25MCG 7 PUFFS/INHALER INH SCH (08:43)
[2022-03-30] MEDS: AMOXICILLIN/CLAVULANATE 875 MG TAB PO SCH ×2 (08:43→20:28)
[2022-03-30] MEDS: SERTRALINE HCL 50 MG TABLET PO SCH (08:43)
[2022-03-30] MEDS: amLODIPine BESYLATE 5 MG TAB PO SCH (08:44)
[2022-03-30] MEDS ORDERED: FUROSEMIDE 40 MG/4 ML VIAL IV ONE (09:57)
[2022-03-30] MEDS: ROSUVASTATIN CALCIUM 20 MG TAB PO SCH (20:29)
--- NOTE | 2022-03-30 23:26 | Hospitalist Progress Note ---
Date of Service March 30, 2022 Assessment & Plan (1) Acute respiratory failure with hypoxia and hypercarbia: Plan: Present on admission with worsening SOB and lethargy Possible related to COPD exacebation ABG on admission with pH 7.31/ pCO2 85/ PHCO3 43 Pt was intubated on vent support on admission S/P extubated on 03/27 and currently on 2L NC CTA chest showed small segmental and subsegmental right-sided pulmonary emboli. Severe emphysema with bronchitis. Tracheobronchial secretions with bibasilar mucous plugging. received IV Zosyn, Vanco and doxycycline and solumedrol in the in the ER Sputum cx showed Moraxella catarrhalis IV Levaquin changed to Augmentin IV steroid was discontinued by the tunneller Continue Augmentin . Pulmonary embolism. CTA chest showed small segmental and subsegmental right-sided pulmonary emboli. Doppler of LE showed no DVT She was starting on IV heparin drip, then transition lovenox 80mg BID Lovenox discontinued and transition to Eliquis Elevated troponin Mostly due to demand ischemia from hypoxia Initial troponin 150.9 then peak to 157, now trending down to 118 Echo showed no segmental LV wall motion abnormalities denies any chest pain Pt was on IV heparin drip for the PE, then transition to Lovenox, now on Eliquis continue atenolol and statin Clinically stable Lower extremity edema Doppler of LE showed no evidence of DVT Lasix 40mg IV given today Stable CAD status post stent Continue her beta tristan and statin Hypothyroidism Continue Synthroid. Hypertension: Continue amlodipine and atenolol. Hyperlipidemia Continue statin. Depression Continue On Zoloft. Deep venous thrombosis prophylaxis on Eliquis BID Code status Full code Admission and Anticipated Discharge Date Admission Date: March 26, 2022 Subjective Pt was seen and examined for follow up of SOB Sitting in chair with no acute distress She continue to have poor appetite Currently she is on 4L NC Denies any chest pain, palpitation, dizziness and SOB Review of Systems Review of Systems: All systems reviewed & are unremarkable except as noted in Subjective Physical Exam Physical Exam: General- No acute distress Head- atraumatic Eyes- PERRL, EOMI, ENT- oropharynx clear Neck- supple, no JVD Lungs- diminished BS Heart- regular rhythm; no murmur Abdomen- normal bowel sounds, soft, nontender Extremities- no calf tenderness, +edema Neuro- alert, oriented x 3; PERRL, EOMI; no facial palsy; no dysarthria Skin- warm & dry Results & Data Results & Data ([facility]) Vital Signs (Past 12 Hours) Vital Signs Temp Pulse Resp BP Pulse Ox Pulse Ox 03/30/22 23:03 94 03/30/22 19:24 69 18 93 03/30/22 19:18 36.7 C 67 18 120/71 93 03/30/22 16:06 37.1 C 71 18 119/74 93 03/30/22 12:25 37.0 C 75 17 124/69 94 03/30/22 12:16 79 17 92
[2022-03-31] MEDS: IPRATROPIUM BROMIDE NEB SOLN 0.02% 2.5 ML VIAL INH SCH ×4 (00:19→19:09)
[2022-03-31] MEDS: LEVALBUTEROL HCL 1.25 MG/3 ML NEB INH SCH ×4 (00:19→19:09)
[2022-03-31] MEDS: LEVOTHYROXINE SODIUM 50 MCG TABLET PO SCH (06:38)
[2022-03-31 08:38] LABS: BUN Creatinine Ratio 46.2 (10-20); Blood Urea Nitrogen 24 mg/dl (6-23); Carbon Dioxide > 45 mmol/L (21-32); Chloride 89 mmol/L (98-107); Creatinine Clr Calc Pharmacy 94.9 ml/min; Est GFR (African American) 109.1 ml/min; Est GFR (Non-African American) 94.1 ml/min; Glucose 103 mg/dl (70-99(Fasting)); Potassium 4.2 mmol/L (3.5-5.1); Sodium 136 mmol/L (136-145)
[2022-03-31] MEDS: INSULIN ASPART PER UNIT SC SCH ×4 (08:38→22:04)
[2022-03-31] MEDS ORDERED: FUROSEMIDE INJ 20 MG/2 ML VIAL IV ONE (08:50)
[2022-03-31] MEDS: SERTRALINE HCL 50 MG TABLET PO SCH (09:06)
[2022-03-31] MEDS: MULTI VIT W/MINERALS LIQUID 15 ML UDP PO SCH (09:06)
[2022-03-31] MEDS: APIXABAN 5 MG TABLET PO SCH ×2 (09:07→21:20)
[2022-03-31] MEDS: amLODIPine BESYLATE 5 MG TAB PO SCH (09:07)
[2022-03-31] MEDS: LORATADINE 10 MG TAB PO SCH (09:07)
[2022-03-31] MEDS: ATENOLOL 25 MG TABLET PO SCH (09:07)
[2022-03-31] MEDS: AMOXICILLIN/CLAVULANATE 875 MG TAB PO SCH ×2 (09:11→21:18)
[2022-03-31] MEDS: FLUTICASONE FUROATE 200MCG 14 PUFFS/INHALER INH SCH (09:12)
[2022-03-31] MEDS: UMECLIDINIUM/VILANTEROL 62.5/25MCG 7 PUFFS/INHALER INH SCH (09:12)
[2022-03-31] MEDS: ROSUVASTATIN CALCIUM 20 MG TAB PO SCH (21:20)
[2022-03-31] MEDS ORDERED: XOPENEX/ATROVENT 1.25mg/0.5MG NEB COMBO NEB PRN (21:22)
[2022-03-31] MEDS ORDERED: LEVALBUTEROL 1.25MG/0.5ML NEB INH PRN (21:30)
--- NOTE | 2022-03-31 22:39 | Hospitalist Progress Note ---
Date of Service March 31, 2022 Assessment & Plan (1) Acute respiratory failure with hypoxia and hypercarbia: Plan: Present on admission with worsening SOB and lethargy Possible related to COPD exacebation ABG on admission with pH 7.31/ pCO2 85/ PHCO3 43 Pt was intubated on vent support on admission S/P extubated on 03/27 and currently on 2L NC CTA chest showed small segmental and subsegmental right-sided pulmonary emboli. Severe emphysema with bronchitis. Tracheobronchial secretions with bibasilar mucous plugging. received IV Zosyn, Vanco and doxycycline and solumedrol in the in the ER Sputum cx showed Moraxella catarrhalis IV Levaquin changed to Augmentin IV steroid was discontinued by the control area operator Continue Augmentin . Pulmonary embolism. CTA chest showed small segmental and subsegmental right-sided pulmonary emboli. Doppler of LE showed no DVT She was starting on IV heparin drip, then transition lovenox 80mg BID Lovenox discontinued and transition to Eliquis Continue Eliquis BID Elevated troponin Mostly due to demand ischemia from hypoxia Initial troponin 150.9 then peak to 157, now trending down to 118 Echo showed no segmental LV wall motion abnormalities denies any chest pain Pt was on IV heparin drip for the PE, then transition to Lovenox, now on Eliquis continue atenolol and statin Clinically stable Lower extremity edema Doppler of LE showed no evidence of DVT Lasix 20mg IV given today Stable CAD status post stent Continue her beta tristan and statin Hypothyroidism Continue Synthroid. Hypertension: Continue amlodipine and atenolol. Hyperlipidemia Continue statin. Depression Continue On Zoloft. Deep venous thrombosis prophylaxis on Eliquis BID Code status Full code Admission and Anticipated Discharge Date Admission Date: March 26, 2022 Subjective Pt was seen and examined for follow up of SOB Sitting in chair with no acute distress Currently she is on 4L NC Denies any chest pain, palpitation, dizziness and SOB Review of Systems Review of Systems: All systems reviewed & are unremarkable except as noted in Subjective Physical Exam Physical Exam: General- No acute distress Head- atraumatic Eyes- PERRL, EOMI, ENT- oropharynx clear Neck- supple, no JVD Lungs- diminished BS Heart- regular rhythm; no murmur Abdomen- normal bowel sounds, soft, nontender Extremities- no calf tenderness, +trace edema Neuro- alert, oriented x 3; PERRL, EOMI; no facial palsy; no dysarthria Skin- warm & dry Results & Data Results & Data ([facility]) Vital Signs (Past 12 Hours) Vital Signs Temp Pulse Pulse Resp BP BP Pulse Ox 03/31/22 20:11 36.5 C 72 21 126/77 92 03/31/22 19:10 69 18 92 03/31/22 16:28 36.6 C 67 18 105/65 96 03/31/22 12:23 71 17 91 03/31/22 11:41 36.6 C 71 17 109/68 97
[2022-04-01] MEDS: LEVOTHYROXINE SODIUM 50 MCG TABLET PO SCH (06:13)
[2022-04-01 08:34] LABS: BUN Creatinine Ratio 52.2 (10-20); Creatinine Clr Calc Pharmacy 107.3 ml/min; Est GFR (African American) 113.6 ml/min; Potassium 3.6 mmol/L (3.5-5.1)
[2022-04-01] MEDS: INSULIN ASPART PER UNIT SC SCH ×4 (08:34→21:03)
[2022-04-01] MEDS: APIXABAN 5 MG TABLET PO SCH ×2 (09:15→21:03)
[2022-04-01] MEDS: SERTRALINE HCL 50 MG TABLET PO SCH (09:16)
[2022-04-01] MEDS: AMOXICILLIN/CLAVULANATE 875 MG TAB PO SCH ×2 (09:16→21:02)
[2022-04-01] MEDS: MULTI VIT W/MINERALS LIQUID 15 ML UDP PO SCH (09:16)
[2022-04-01] MEDS: UMECLIDINIUM/VILANTEROL 62.5/25MCG 7 PUFFS/INHALER INH SCH (09:16)
[2022-04-01] MEDS: LORATADINE 10 MG TAB PO SCH (09:17)
[2022-04-01] MEDS: FLUTICASONE FUROATE 200MCG 14 PUFFS/INHALER INH SCH (09:17)
[2022-04-01] MEDS: amLODIPine BESYLATE 5 MG TAB PO SCH (09:17)
[2022-04-01] MEDS: ATENOLOL 25 MG TABLET PO SCH (09:17)
[2022-04-01] MEDS: ROSUVASTATIN CALCIUM 20 MG TAB PO SCH (21:03)
--- NOTE | 2022-04-01 21:49 | Hospitalist Progress Note ---
Date of Service April 01, 2022 Assessment & Plan (1) Acute respiratory failure with hypoxia and hypercarbia: Plan: Present on admission with worsening SOB and lethargy Possible related to COPD exacebation ABG on admission with pH 7.31/ pCO2 85/ PHCO3 43 Pt was intubated on vent support on admission S/P extubated on 03/27 and currently on 2L NC CTA chest showed small segmental and subsegmental right-sided pulmonary emboli. Severe emphysema with bronchitis. Tracheobronchial secretions with bibasilar mucous plugging. received IV Zosyn, Vanco and doxycycline and solumedrol in the in the ER Sputum cx showed Moraxella catarrhalis IV Levaquin changed to Augmentin IV steroid was discontinued by the edge inker uppers Continue Augmentin until 04/03 Pt was on oxygen at home prior coming to [place] from [place] Will need to get 2 step on discharge . Pulmonary embolism. CTA chest showed small segmental and subsegmental right-sided pulmonary emboli. Doppler of LE showed no DVT She was starting on IV heparin drip, then transition lovenox 80mg BID Lovenox discontinued and transition to Eliquis Continue Eliquis BID Elevated troponin Mostly due to demand ischemia from hypoxia Initial troponin 150.9 then peak to 157, now trending down to 118 Echo showed no segmental LV wall motion abnormalities denies any chest pain Pt was on IV heparin drip for the PE, then transition to Lovenox, now on Eliquis continue atenolol and statin Clinically stable Lower extremity edema Doppler of LE showed no evidence of DVT Lasix 20mg IV given today Swelling improves significantly Stable Weakness PT/OT recommended SNF for inpatient therapy Spoke to family and would like pt to get PT/OT done outpatient Pt plans to return back to [place] on 04/14 Continue PT/OT Fall precaution CAD status post stent Continue her beta tristan and statin Hypothyroidism Continue Synthroid. Hypertension: Continue amlodipine and atenolol. Hyperlipidemia Continue statin. Depression Continue On Zoloft. Deep venous thrombosis prophylaxis on Eliquis BID Code status Full code Disposition PT/OT recommended inpatient rehab Family would like to take her home for outpatient therapy Admission and Anticipated Discharge Date Admission Date: March 26, 2022 Subjective Pt was seen and examined for follow up of SOB Sitting in chair with no acute distress Currently she is on 4L NC comfortable Nurse said that it seems when her oxygen level checked in her fingers that the level is not accurate Her fingers are cold and her nails are long. Family at bedside and provided with update Denies any chest pain, palpitation, dizziness and SOB Review of Systems Review of Systems: All systems reviewed & are unremarkable except as noted in Subjective Physical Exam Physical Exam: General- No acute distress Head- atraumatic Eyes- PERRL, EOMI, ENT- oropharynx clear Neck- supple, no JVD Lungs- diminished BS Heart- regular rhythm; no murmur Abdomen- normal bowel sounds, soft, nontender Extremities- no calf tenderness, +trace edema Neuro- alert, oriented x 3; PERRL, EOMI; no facial palsy; no dysarthria Skin- warm & dry Results & Data Results & Data ([facility]) Vital Signs (Past 12 Hours) Vital Signs Temp Pulse Resp BP Pulse Ox 04/01/22 19:00 37.0 C 63 18 112/63 90 04/01/22 15:10 36.9 C 66 19 114/73 93 04/01/22 12:13 36.8 C 71 21 106/66 92
[2022-04-01] MEDS ORDERED: FUROSEMIDE INJ 20 MG/2 ML VIAL IV ONE (21:50)
[2022-04-02] MEDS: LEVOTHYROXINE SODIUM 50 MCG TABLET PO SCH (05:44)
[2022-04-02] MEDS: INSULIN ASPART PER UNIT SC SCH ×4 (07:57→20:16)
[2022-04-02] MEDS: SERTRALINE HCL 50 MG TABLET PO SCH (08:00)
[2022-04-02] MEDS: LORATADINE 10 MG TAB PO SCH (08:00)
[2022-04-02] MEDS: MULTI VIT W/MINERALS LIQUID 15 ML UDP PO SCH (08:00)
[2022-04-02] MEDS: UMECLIDINIUM/VILANTEROL 62.5/25MCG 7 PUFFS/INHALER INH SCH (08:01)
[2022-04-02] MEDS: FLUTICASONE FUROATE 200MCG 14 PUFFS/INHALER INH SCH (08:01)
[2022-04-02] MEDS: AMOXICILLIN/CLAVULANATE 875 MG TAB PO SCH ×2 (08:01→20:15)
[2022-04-02] MEDS: APIXABAN 5 MG TABLET PO SCH ×2 (08:01→20:16)
[2022-04-02] MEDS: amLODIPine BESYLATE 5 MG TAB PO SCH (08:03)
[2022-04-02] MEDS: ATENOLOL 25 MG TABLET PO SCH (08:03)
--- NOTE | 2022-04-02 15:16 | XRay Report ---
XR chest 1V portable CLINICAL HISTORY: hypoxia. COMPARISON STUDY: 03/27/2022 TECHNIQUE: 1 view of the chest FINDINGS: Single frontal view of the chest demonstrates the cardiomediastinal silhouette to be within normal li mits. Compared to previous examination, there has been interval development of small to moderate-size d left pleural effusion with left lower lobe atelectasis/collapse. Small right pleural effusion and r ight basilar atelectasis is also present. The upper lungs are clear. No confluent alveolar opacities are seen. There is no evidence for vascular congestion. There is no acute osseous pathology. IMPRESSION: 1. Interval development of small to moderate-sized left pleural effusion with left lower lobe atelect asis/collapse. 2. There is also evidence for small right pleural effusion and right basilar atelectasis. ACT 112: Negative or not required by law. Electronically signed by: Bebeto Beverly M.D. 04/02/2022 3:15 PM
[2022-04-02] MEDS ORDERED: FUROSEMIDE INJ 20 MG/2 ML VIAL IV ONE (16:30)
[2022-04-02] MEDS: ROSUVASTATIN CALCIUM 20 MG TAB PO SCH (20:16)
--- NOTE | 2022-04-02 23:42 | Hospitalist Progress Note ---
Date of Service April 02, 2022 Assessment & Plan (1) Acute respiratory failure with hypoxia and hypercarbia: Plan: Present on admission with worsening SOB and lethargy Possible related to COPD exacebation ABG on admission with pH 7.31/ pCO2 85/ PHCO3 43 Pt was intubated on vent support on admission S/P extubated on 03/27 and currently on 2L NC CTA chest showed small segmental and subsegmental right-sided pulmonary emboli. Severe emphysema with bronchitis. Tracheobronchial secretions with bibasilar mucous plugging. CXR showed Interval development of small to moderate-sized left pleural effusion with left lower lobe atelectasis/collapse. There is also evidence for small right pleural effusion and right basilar atelectasis. received IV Zosyn, Vanco and doxycycline and solumedrol in the in the ER Sputum cx showed Moraxella catarrhalis IV Levaquin changed to Augmentin IV steroid was discontinued by the community development specialist Continue Augmentin until 04/03 Lasix 20mg IV given Pt was on oxygen at home prior coming to [place] from [place] Will need to get 2 step on discharge . Pulmonary embolism. CTA chest showed small segmental and subsegmental right-sided pulmonary emboli. Doppler of LE showed no DVT She was starting on IV heparin drip, then transition lovenox 80mg BID Lovenox discontinued and transition to Eliquis Continue Eliquis BID Elevated troponin Mostly due to demand ischemia from hypoxia Initial troponin 150.9 then peak to 157, now trending down to 118 Echo showed no segmental LV wall motion abnormalities denies any chest pain Pt was on IV heparin drip for the PE, then transition to Lovenox, now on Eliquis continue atenolol and statin Clinically stable Lower extremity edema Doppler of LE showed no evidence of DVT Lasix 20mg IV given today Swelling improves significantly Stable Weakness PT/OT recommended SNF for inpatient therapy Spoke to family and would like pt to get PT/OT done outpatient Pt plans to return back to [place] on 04/14 Continue PT/OT Fall precaution CAD status post stent Continue her beta tristan and statin Hypothyroidism Continue Synthroid. Hypertension: Continue amlodipine and atenolol. Hyperlipidemia Continue statin. Depression Continue On Zoloft. Deep venous thrombosis prophylaxis on Eliquis BID Code status Full code Disposition PT/OT recommended inpatient rehab Plan to transfer to rehab once medical stable Admission and Anticipated Discharge Date Admission Date: March 26, 2022 Subjective Pt was seen and examined for follow up of SOB Lying in bed with no with no acute distress Continue to require 5L NC oxygen Her oxygen Saturation was in the 80's and pt denies any SOB, doubt if it was accurate since yesterday nurse was not able to get a good oxygen reading Denies any chest pain, palpitation, dizziness and SOB Review of Systems Review of Systems: All systems reviewed & are unremarkable except as noted in Subjective Physical Exam Physical Exam: General- No acute distress Head- atraumatic Eyes- PERRL, EOMI, ENT- oropharynx clear Neck- supple, no JVD Lungs- diminished BS Heart- regular rhythm; no murmur Abdomen- normal bowel sounds, soft, nontender Extremities- no calf tenderness, +trace edema Neuro- alert, oriented x 3; PERRL, EOMI; no facial palsy; no dysarthria Skin- warm & dry Results & Data Results & Data ([facility]) Vital Signs (Past 12 Hours) Vital Signs Temp Pulse Pulse Pulse Resp BP BP 04/02/22 19:58 36.7 C 63 22 120/66 04/02/22 16:18 04/02/22 16:00 66 04/02/22 15:49 36.6 C 62 18 119/73 04/02/22 15:32 04/02/22 14:21 04/02/22 13:44 04/02/22 12:34 Pulse Ox 04/02/22 19:58 93 04/02/22 16:18 94 04/02/22 16:00 04/02/22 15:49 92 04/02/22 15:32 95 04/02/22 14:21 95 04/02/22 13:44 96 04/02/22 12:34 96
[2022-04-03] MEDS: LEVOTHYROXINE SODIUM 50 MCG TABLET PO SCH (06:17)
[2022-04-03 08:04] LABS: Hematocrit (blood only) 42.8 % (37-47); Hemoglobin 14.1 g/dL (12.0-16.0); Mean Corpuscular Hemoglobin 30.3 pg (25-34); Mean Corpuscular Hgb Conc 32.9 g/dL (32-36); Mean Platelet Volume 8.7 fL (7.4-10.4); Platelet Count 195 K/uL (130-400); RDW Coefficient of Variation 13.9 % (11.5-14.5); RDW Standard Deviation 46.4 fL (36.4-46.3); Red Blood Count 4.65 M/uL (4.2-5.4); White Blood Count 8.81 K/uL (4.8-10.8)
[2022-04-03] MEDS: MULTI VIT W/MINERALS LIQUID 15 ML UDP PO SCH (08:22)
[2022-04-03] MEDS: APIXABAN 5 MG TABLET PO SCH ×2 (08:22→20:33)
[2022-04-03] MEDS: SERTRALINE HCL 50 MG TABLET PO SCH (08:22)
[2022-04-03] MEDS: INSULIN ASPART PER UNIT SC SCH ×4 (08:23→20:44)
[2022-04-03] MEDS: UMECLIDINIUM/VILANTEROL 62.5/25MCG 7 PUFFS/INHALER INH SCH (08:26)
[2022-04-03] MEDS: FLUTICASONE FUROATE 200MCG 14 PUFFS/INHALER INH SCH (08:26)
[2022-04-03] MEDS: LORATADINE 10 MG TAB PO SCH (08:27)
[2022-04-03] MEDS: ATENOLOL 25 MG TABLET PO SCH (08:28)
[2022-04-03] MEDS: amLODIPine BESYLATE 5 MG TAB PO SCH (08:29)
[2022-04-03 08:52] LABS: BUN Creatinine Ratio 32.1 (10-20); Calcium 8.8 mg/dl (8.5-10.1); Creatinine Clr Calc Pharmacy 93.6 ml/min; Est GFR (African American) 108.4 ml/min; Est GFR (Non-African American) 93.5 ml/min; Potassium 3.6 mmol/L (3.5-5.1)
[2022-04-03] MEDS ORDERED: POTASSIUM CHLORIDE CRTAB 20 MEQ TABCR PO STA (12:36)
[2022-04-03] MEDS ORDERED: FUROSEMIDE 40 MG/4 ML VIAL IV ONE (12:37)
--- NOTE | 2022-04-03 12:37 | Hospitalist Progress Note ---
Date of Service April 03, 2022 Assessment & Plan (1) Acute respiratory failure with hypoxia and hypercarbia: Plan: Present on admission with worsening SOB and lethargy Possible related to COPD exacebation ABG on admission with pH 7.31/ pCO2 85/ PHCO3 43 Pt was intubated on vent support on admission S/P extubated on 03/27 CTA chest showed small segmental and subsegmental right-sided pulmonary emboli. Severe emphysema with bronchitis. Tracheobronchial secretions with bibasilar mucous plugging. CXR showed Interval development of small to moderate-sized left pleural effusion with left lower lobe atelectasis/collapse. There is also evidence for small right pleural effusion and right basilar atelectasis. received IV Zosyn, Vanco and doxycycline and solumedrol in the in the ER Sputum cx showed Moraxella catarrhalis IV Levaquin changed to Augmentin IV steroid was discontinued by the railroad car cleaning supervisor Continue Augmentin until 04/03 Lasix 40mg IV given today (04/03) Add mucinex, flatter valve, cont. IS Pt was on oxygen at home prior coming to [place] from [place] - not clear how much she used (seems on and off O2) Will need to get 2 step on discharge . Pulmonary embolism. CTA chest showed small segmental and subsegmental right-sided pulmonary emboli. Doppler of LE showed no DVT She was starting on IV heparin drip, then transition lovenox 80mg BID Lovenox discontinued and transition to Eliquis Continue Eliquis BID Elevated troponin Mostly due to demand ischemia from hypoxia Initial troponin 150.9 then peak to 157, now trending down to 118 Echo showed no segmental LV wall motion abnormalities denies any chest pain Pt was on IV heparin drip for the PE, then transition to Lovenox, now on Eliquis continue atenolol and statin Clinically stable Lower extremity edema Doppler of LE showed no evidence of DVT Lasix IV given Swelling improved significantly Stable Weakness PT/OT recommended SNF for inpatient therapy Spoke to family and would like pt to get PT/OT done outpatient Pt plans to return back to [place] on 04/14 Continue PT/OT Fall precaution CAD status post stent Continue her beta tristan and statin Hypothyroidism Continue Synthroid. Hypertension: Continue amlodipine and atenolol. Hyperlipidemia Continue statin. Depression Continue On Zoloft. DVT prophylaxis on Eliquis BID Code status Full code Disposition PT/OT recommended inpatient rehab Plan to transfer to rehab once medical stable Admission and Anticipated Discharge Date Admission Date: March 26, 2022 Subjective Pt was seen in follow up of shortness of breath, hypoxia, likely 2/2 COPD ex acerbation Extubated on 03/27 Sitting up in bed in NAD Continues to require 5-6L NC oxygen Denies any chest pain, palpitation, dizziness, increased shortness of breath, or cough Review of Systems Review of Systems: All systems reviewed & are unremarkable except as noted in Subjective Physical Exam Physical Exam: General- No acute distress Head- atraumatic Eyes- PERRL, EOMI, ENT- oropharynx clear Neck- supple, no JVD Lungs- diminished BS Heart- regular rhythm; no murmur Abdomen- normal bowel sounds, soft, nontender Extremities- no calf tenderness, +trace edema Neuro- alert, oriented x 3; PERRL, EOMI; no facial palsy; no dysarthria Skin- warm & dry Results & Data Results & Data ([facility]) Vital Signs (Past 12 Hours) Vital Signs Temp Pulse Pulse Pulse Resp BP BP 04/03/22 11:00 36.7 C 73 18 113/66 04/03/22 07:00 36.6 C 67 72 18 119/67 04/03/22 03:00 36.7 C 68 18 126/73 04/03/22 01:28 64 Pulse Ox 04/03/22 11:00 89 L 04/03/22 07:00 91 04/03/22 03:00 98 04/03/22 01:28 Laboratory Results 04/03/22 04/03/22 04/03/22 Range/Units 11:10 07:43 07:43 WBC 8.81 (4.8-10.8) K/uL RBC 4.65 (4.2-5.4) M/uL Hgb 14.1 (12.0-16.0) g/dL Hct 42.8 (37-47) % MCV 92.0 (80-100) fL MCH 30.3 (25-34) pg MCHC 32.9 (32-36) g/dL RDW Std Deviation 46.4 H (36.4-46.3) fL RDW Coeff of Yosef 13.9 (11.5-14.5) % Plt Count 195 (130-400) K/uL MPV 8.7 (7.4-10.4) fL Sodium 132 L (136-145) mmol/L Potassium 3.6 (3.5-5.1) mmol/L Chloride 87 L (98-107) mmol/L Carbon Dioxide 43 H* (21-32) mmol/L Anion Gap 2 L (3-11) BUN 17 (6-23) mg/dl Creatinine 0.53 L (0.6-1.2) mg/dl Est Cr Clr Drug Dosing 93.6 ml/min Est GFR ( Amer) 108.4 ml/min Est GFR (Non-Af Amer) 93.5 ml/min BUN/Creatinine Ratio 32.1 H (10-20) Glucose 107 H (70-99(Fasting)) mg/dl POC Glucose 125 H (70-99) mg/dl Calcium 8.8 (8.5-10.1) mg/dl 04/03/22 04/02/22 04/02/22 Range/Units 07:14 20:14 16:29 WBC (4.8-10.8) K/uL RBC (4.2-5.4) M/uL Hgb (12.0-16.0) g/dL Hct (37-47) % MCV (80-100) fL MCH (25-34) pg MCHC (32-36) g/dL RDW Std Deviation (36.4-46.3) fL RDW Coeff of Yosef (11.5-14.5) % Plt Count (130-400) K/uL MPV (7.4-10.4) fL Sodium (136-145) mmol/L Potassium (3.5-5.1) mmol/L Chloride (98-107) mmol/L Carbon Dioxide (21-32) mmol/L Anion Gap (3-11) BUN (6-23) mg/dl Creatinine (0.6-1.2) mg/dl Est Cr Clr Drug Dosing ml/min Est GFR ( Amer) ml/min Est GFR (Non-Af Amer) ml/min BUN/Creatinine Ratio (10-20) Glucose (70-99(Fasting)) mg/dl POC Glucose 117 H 94 131 H (70-99) mg/dl Calcium (8.5-10.1) mg/dl Medications Administered Current Inpatient Medications Albuterol (Albuterol Hfa 8 Gm Inhaler) 2 puffs INH Q4H PRN PRN Reason: Shortness Of Breath Stop: 04/25/22 23:20 Amlodipine Besylate (Amlodipine Besylate 5 Mg Tab) 5 mg PO DAILY ABDULKADIR Stop: 04/26/22 08:59 Last Admin: 04/03/22 08:29 Dose: 5 mg Documented by: Apixaban (Apixaban 5 Mg Tablet) 10 mg PO BID ABDULKADIR Stop: 04/04/22 09:01 Last Admin: 04/03/22 08:22 Dose: 10 mg Documented by: Apixaban (Apixaban 5 Mg Tablet) 5 mg PO BID ABDULKADIR Stop: 05/04/22 20:59 Atenolol (Atenolol 25 Mg Tablet) 25 mg PO DAILY ABDULKADIR Stop: 04/26/22 08:59 Last Admin: 04/03/22 08:28 Dose: 25 mg Documented by: Dextrose (Dextrose 50% 50 Ml Syringe) 25 - 50 ml IV UD PRN; Protocol PRN Reason: Hypoglycemia Protocol Stop: 04/26/22 10:29 Fluticasone Furoate (Fluticasone Furoate 200mcg 14 Puffs/Inhaler) 1 puffs INH DAILY ABDULKADIR Stop: 04/26/22 08:59 Last Admin: 04/03/22 08:26 Dose: 1 puffs Documented by: Glucagon (Glucagon For Inj 1 Mg Vial) 1 mg IM UD PRN; Protocol PRN Reason: Hypoglycemia Protocol Stop: 04/26/22 10:29 Glucose (Glucose 40% Gel 15 Gm Tube) 15 - 30 gm PO UD PRN; Protocol PRN Reason: Hypoglycemia Protocol Stop: 04/26/22 10:29 Glucose (Glucose 10 Tabs/Tube) 4 - 8 tabs PO UD PRN; Protocol PRN Reason: Hypoglycemia Protocol Stop: 04/26/22 10:29 Insulin Aspart (Insulin Aspart Per Unit) 0 units SC ACHS [facility] Stop: 04/26/22 11:29 Last Admin: 04/03/22 11:58 Dose: Not Given Documented by: Ipratropium [place] (Ipratropium [place] Neb Soln 0.02% 2.5 Ml Vial) 0.5 mg INH Q4H PRN PRN Reason: SOB/wheezing Stop: 04/30/22 21:29 Levalbuterol HCl (Levalbuterol 1.25mg/0.5ml Neb) 1.25 mg INH Q4H PRN PRN Reason: SOB/wheezing Stop: 04/30/22 21:29 Levothyroxine Sodium (Levothyroxine Sodium 50 Mcg Tablet) 50 mcg PO DAILYBB [facility] Stop: 04/26/22 06:29 Last Admin: 04/03/22 06:17 Dose: 50 mcg Documented by: Loratadine (Loratadine 10 Mg Tab) 10 mg PO DAILY ABDULKADIR Stop: 04/26/22 08:59 Last Admin: 04/03/22 08:27 Dose: 10 mg Documented by: Miscellaneous (Carbohydrates For Hypoglycemia ) 15 - 30 gm PO UD PRN PRN Reason: Hypoglycemia Treatment Stop: 04/26/22 10:29 Multivitamins/Minerals (Multi Vit W/Minerals Liquid 15 Ml Udp) 15 ml PO DAILY ABDULKADIR Stop: 04/26/22 08:59 Last Admin: 04/03/22 08:22 Dose: 15 ml Documented by: Nitroglycerin (Nitroglycerin Sl 0.4 Mg/Tab Tab) 0.4 mg SL Q5M PRN PRN Reason: Chest Pain Stop: 04/25/22 23:20 Rosuvastatin Calcium (Rosuvastatin Calcium 20 Mg Tab) 20 mg PO QPM ABDULKADIR Stop: 04/26/22 20:59 Last Admin: 04/02/22 20:16 Dose: 20 mg Documented by: Sertraline HCl (Sertraline Hcl 50 Mg Tablet) 25 mg PO DAILY ABDULKADIR Stop: 04/26/22 08:59 Last Admin: 04/03/22 08:22 Dose: 25 mg Documented by: Umeclidinium/Vilanterol (Umeclidinium/Vilanterol 62.5/25mcg 7 Puffs/Inhaler) 1 puffs INH DAILY ABDULKADIR Stop: 04/26/22 08:59 Last Admin: 04/03/22 08:26 Dose: 1 puffs Documented by:
[2022-04-03] MEDS: ROSUVASTATIN CALCIUM 20 MG TAB PO SCH (20:33)
[2022-04-04] MEDS: LEVOTHYROXINE SODIUM 50 MCG TABLET PO SCH (06:16)
[2022-04-04 06:31] LABS: BUN Creatinine Ratio 33.3 (10-20); Calcium 8.7 mg/dl (8.5-10.1); Creatinine Clr Calc Pharmacy 117.1 ml/min; Magnesium 1.7 mg/dl (1.7-2.4); Phosphorus 3.5 mg/dl (2.5-4.9); Potassium 3.9 mmol/L (3.5-5.1)
[2022-04-04] MEDS: guaiFENesin 600 MG TABCR PO SCH ×2 (08:13→20:12)
[2022-04-04] MEDS: amLODIPine BESYLATE 5 MG TAB PO SCH (08:14)
[2022-04-04] MEDS: APIXABAN 5 MG TABLET PO SCH ×2 (08:14→20:12)
[2022-04-04] MEDS: ATENOLOL 25 MG TABLET PO SCH (08:14)
[2022-04-04] MEDS: SERTRALINE HCL 50 MG TABLET PO SCH (08:14)
[2022-04-04] MEDS: MULTI VIT W/MINERALS LIQUID 15 ML UDP PO SCH (08:15)
[2022-04-04] MEDS: LORATADINE 10 MG TAB PO SCH (08:15)
[2022-04-04] MEDS: FLUTICASONE FUROATE 200MCG 14 PUFFS/INHALER INH SCH (08:15)
[2022-04-04] MEDS: UMECLIDINIUM/VILANTEROL 62.5/25MCG 7 PUFFS/INHALER INH SCH (08:15)
[2022-04-04] MEDS: INSULIN ASPART PER UNIT SC SCH ×4 (08:17→20:39)
[2022-04-04] MEDS ORDERED: MAGNESIUM SULFATE / D5W 1 GM/100 ML BAG IV ONE (09:28)
--- NOTE | 2022-04-04 09:30 | Hospitalist Progress Note ---
Date of Service April 04, 2022 Assessment & Plan (1) Acute respiratory failure with hypoxia and hypercarbia: Plan: Present on admission with worsening SOB and lethargy Possible related to COPD exacebation ABG on admission with pH 7.31/ pCO2 85/ PHCO3 43 Pt was intubated on vent support on admission S/P extubated on 03/27 CTA chest showed small segmental and subsegmental right-sided pulmonary emboli. Severe emphysema with bronchitis. Tracheobronchial secretions with bibasilar mucous plugging. CXR showed Interval development of small to moderate-sized left pleural effusion with left lower lobe atelectasis/collapse. There is also evidence for small right pleural effusion and right basilar atelectasis. received IV Zosyn, Vanco and doxycycline and solumedrol in the in the ER Sputum cx showed Moraxella catarrhalis IV Levaquin changed to Augmentin IV steroid was discontinued by the platform engineer Continued Augmentin until 04/03 Lasix 40mg IV given (04/03) Added mucinex, flatter valve, cont. IS Pt was on oxygen at home prior coming to [place] from [place] - not clear how much she used (seems on and off O2) Will need to get 2 step on discharge 04/04 -patient cont. to require 5 to 6 L of oxygen. We will repeat chest x-ray now. We will further discuss with pulmonology. . Pulmonary embolism. CTA chest showed small segmental and subsegmental right-sided pulmonary emboli. Doppler of LE showed no DVT She was starting on IV heparin drip, then transition lovenox 80mg BID Lovenox discontinued and transition to Eliquis Continue Eliquis BID Elevated troponin Mostly due to demand ischemia from hypoxia Initial troponin 150.9 then peak to 157, now trending down to 118 Echo showed no segmental LV wall motion abnormalities denies any chest pain Pt was on IV heparin drip for the PE, then transition to Lovenox, now on Eliquis continue atenolol and statin Clinically stable Lower extremity edema Doppler of LE showed no evidence of DVT Lasix IV given Swelling improved significantly Stable Weakness PT/OT recommended SNF for inpatient therapy Spoke to family and would like pt to get PT/OT done outpatient Pt plans to return back to [place] on 04/14 Continue PT/OT Fall precaution CAD status post stent Continue her beta tristan and statin Hypothyroidism Continue Synthroid. Hypertension: Continue amlodipine and atenolol. Hyperlipidemia Continue statin. Depression Continue On Zoloft. DVT prophylaxis on Eliquis BID Code status Full code Disposition PT/OT recommended inpatient rehab Plan to transfer to rehab once medical stable Admission and Anticipated Discharge Date Admission Date: March 26, 2022 Subjective Pt was seen in follow up of shortness of breath, hypoxia, likely 2/2 COPD exacerbation Extubated on 03/27 Sitting up in bed in NAD Continues to require 5-6L NC oxygen Denies any chest pain, palpitation, dizziness, increased shortness of breath, or cough Review of Systems Review of Systems: All systems reviewed & are unremarkable except as noted in Subjective Physical Exam Physical Exam: General- No acute distress Head- atraumatic Eyes- PERRL, EOMI, ENT- oropharynx clear Neck- supple, no JVD Lungs- diminished BS Heart- regular rhythm; no murmur Abdomen- normal bowel sounds, soft, nontender Extremities- no calf tenderness, +trace edema Neuro- alert, oriented x 3; PERRL, EOMI; no facial palsy; no dysarthria Skin- warm & dry Results & Data Results & Data ([facility]) Vital Signs (Past 12 Hours) Vital Signs Temp Pulse Pulse Resp BP BP Pulse Ox 04/04/22 08:00 36.6 C 66 20 113/67 96 04/04/22 03:22 36.8 C 69 17 121/71 92 04/04/22 00:14 94 04/04/22 00:00 65 04/03/22 22:49 36.7 C 66 18 123/71 92 Laboratory Results 04/04/22 04/03/22 04/03/22 Range/Units 05:51 20:20 16:17 Sodium 132 L (136-145) mmol/L Potassium 3.9 (3.5-5.1) mmol/L Chloride 89 L (98-107) mmol/L Carbon Dioxide 39 H (21-32) mmol/L Anion Gap 4 (3-11) BUN 14 (6-23) mg/dl Creatinine 0.42 L (0.6-1.2) mg/dl Est Cr Clr Drug Dosing 117.1 ml/min Est GFR ( Amer) 117.0 ml/min Est GFR (Non-Af Amer) 101.0 ml/min BUN/Creatinine Ratio 33.3 H (10-20) Glucose 111 H (70-99(Fasting)) mg/dl POC Glucose 105 H 132 H (70-99) mg/dl Calcium 8.7 (8.5-10.1) mg/dl Phosphorus 3.5 (2.5-4.9) mg/dl Magnesium 1.7 (1.7-2.4) mg/dl 04/03/22 Range/Units 11:10 Sodium (136-145) mmol/L Potassium (3.5-5.1) mmol/L Chloride (98-107) mmol/L Carbon Dioxide (21-32) mmol/L Anion Gap (3-11) BUN (6-23) mg/dl Creatinine (0.6-1.2) mg/dl Est Cr Clr Drug Dosing ml/min Est GFR ( Amer) ml/min Est GFR (Non-Af Amer) ml/min BUN/Creatinine Ratio (10-20) Glucose (70-99(Fasting)) mg/dl POC Glucose 125 H (70-99) mg/dl Calcium (8.5-10.1) mg/dl Phosphorus (2.5-4.9) mg/dl Magnesium (1.7-2.4) mg/dl Medications Administered Current Inpatient Medications Albuterol (Albuterol Hfa 8 Gm Inhaler) 2 puffs INH Q4H PRN PRN Reason: Shortness Of Breath Stop: 04/25/22 23:20 Amlodipine Besylate (Amlodipine Besylate 5 Mg Tab) 5 mg PO DAILY ABDULKADIR Stop: 04/26/22 08:59 Last Admin: 04/04/22 08:14 Dose: 5 mg Documented by: Apixaban (Apixaban 5 Mg Tablet) 5 mg PO BID ABDULKADIR Stop: 05/04/22 20:59 Atenolol (Atenolol 25 Mg Tablet) 25 mg PO DAILY ABDULKADIR Stop: 04/26/22 08:59 Last Admin: 04/04/22 08:14 Dose: 25 mg Documented by: Dextrose (Dextrose 50% 50 Ml Syringe) 25 - 50 ml IV UD PRN; Protocol PRN Reason: Hypoglycemia Protocol Stop: 04/26/22 10:29 Fluticasone Furoate (Fluticasone Furoate 200mcg 14 Puffs/Inhaler) 1 puffs INH DAILY ABDULKADIR Stop: 04/26/22 08:59 Last Admin: 04/04/22 08:15 Dose: 1 puffs Documented by: Glucagon (Glucagon For Inj 1 Mg Vial) 1 mg IM UD PRN; Protocol PRN Reason: Hypoglycemia Protocol Stop: 04/26/22 10:29 Glucose (Glucose 40% Gel 15 Gm Tube) 15 - 30 gm PO UD PRN; Protocol PRN Reason: Hypoglycemia Protocol Stop: 04/26/22 10:29 Glucose (Glucose 10 Tabs/Tube) 4 - 8 tabs PO UD PRN; Protocol PRN Reason: Hypoglycemia Protocol Stop: 04/26/22 10:29 Guaifenesin (Guaifenesin 600 Mg Tabcr) 600 mg PO Q12 ABDULKADIR Stop: 05/04/22 08:59 Last Admin: 04/04/22 08:13 Dose: 600 mg Documented by: Insulin Aspart (Insulin Aspart Per Unit) 0 units SC ACHS ABDULKADIR Stop: 04/26/22 11:29 Last Admin: 04/04/22 08:17 Dose: 5 units Documented by: Ipratropium [place] (Ipratropium [place] Neb Soln 0.02% 2.5 Ml Vial) 0.5 mg INH Q4H PRN PRN Reason: SOB/wheezing Stop: 04/30/22 21:29 Levalbuterol HCl (Levalbuterol 1.25mg/0.5ml Neb) 1.25 mg INH Q4H PRN PRN Reason: SOB/wheezing Stop: 04/30/22 21:29 Levothyroxine Sodium (Levothyroxine Sodium 50 Mcg Tablet) 50 mcg PO DAILYBB ABDULKADIR Stop: 04/26/22 06:29 Last Admin: 04/04/22 06:16 Dose: 50 mcg Documented by: Loratadine (Loratadine 10 Mg Tab) 10 mg PO DAILY ABDULKADIR Stop: 04/26/22 08:59 Last Admin: 04/04/22 08:15 Dose: 10 mg Documented by: Miscellaneous (Carbohydrates For Hypoglycemia ) 15 - 30 gm PO UD PRN PRN Reason: Hypoglycemia Treatment Stop: 04/26/22 10:29 Multivitamins/Minerals (Multi Vit W/Minerals Liquid 15 Ml Udp) 15 ml PO DAILY ABDULKADIR Stop: 04/26/22 08:59 Last Admin: 04/04/22 08:15 Dose: 15 ml Documented by: Nitroglycerin (Nitroglycerin Sl 0.4 Mg/Tab Tab) 0.4 mg SL Q5M PRN PRN Reason: Chest Pain Stop: 04/25/22 23:20 Rosuvastatin Calcium (Rosuvastatin Calcium 20 Mg Tab) 20 mg PO QPM ABDULKADIR Stop: 04/26/22 20:59 Last Admin: 04/03/22 20:33 Dose: 20 mg Documented by: Sertraline HCl (Sertraline Hcl 50 Mg Tablet) 25 mg PO DAILY ABDULKADIR Stop: 04/26/22 08:59 Last Admin: 04/04/22 08:14 Dose: 25 mg Documented by: Umeclidinium/Vilanterol (Umeclidinium/Vilanterol 62.5/25mcg 7 Puffs/Inhaler) 1 puffs INH DAILY ABDULKADIR Stop: 04/26/22 08:59 Last Admin: 04/04/22 08:15 Dose: 1 puffs Documented by:
--- NOTE | 2022-04-04 10:20 | XRay Report ---
XR chest 1V portable CLINICAL HISTORY: follow up hypoxia COMPARISON STUDY: Chest CT March 26, 2022. Chest radiograph April 02, 2022. FINDINGS: No pneumothorax is present. Emphysema is better depicted on prior chest CT. Suspected small bilateral pleural effusions are noted. Retrocardiac opacity is again noted with additional hazy biba silar opacities. Appearance of the chest is unchanged. No evidence for overt pulmonary edema. IMPRESSION: 1. No change in bibasilar opacities, including retrocardiac opacity with volume loss. This could refl ect left lower lobe collapse or pneumonia. Radiographic follow-up is recommended. 2. Emphysema. 3. Small bilateral pleural effusions. ACT 112: Negative or not required by law. Electronically signed by: Carlos Elena M.D. 04/04/2022 10:19 AM
[2022-04-04] MEDS ORDERED: FUROSEMIDE INJ 20 MG/2 ML VIAL IV ONE ×2 (15:03→17:10)
--- NOTE | 2022-04-04 15:13 | Pulmonary Consultation ---
Date of Consultation April 04, 2022 Assessment & Plan (1) Acute respiratory failure with hypoxia and hypercarbia: 76 yo female with past medical history of COPD (three weeks ago she was started on 1 liter oxygen at all times), hypothyroidism; hyperlipidemia, hypertension, bronchitis, depression, prediabetic, and CAD s/p stent presented with lethargy and worsening SOB. #Acute respiratory failure with hypoxia and hypercarbia -Likely secondary to acute on chronic COPD exacerbation with superimposed chronic emphysema -Bedside ultrasound performed showing extensive left lower lobe atelectasis with small to moderate left pleural effusion. Minimal pleural effusion seen on the right. Diffuse B-lines present indicating patient may still be volume overloaded. -Wean oxygen as tolerated with saturation goal of 88-92%. -Continue Trelegy inhaler daily -Aggressive pulmonary toilet. Discussed consistent use of flutter valve and incentive spirometer. -Would benefit from BiPAP when she sleeps. Will trial tonight. Will likely recommend noninvasive ventilation at home with hopes of improving chronic hypercapnia. -Ordered IV Lasix 20 mg since appears volume overloaded. Monitor strict I's and O's. #Pulmonary Nodule -1.5 cm pulmonary nodule within left lower lobe seen on CT imaging during his hospital stay. -Nodule concerning for malignancy, especially given history of melanoma and recent acute pulmonary embolism possibly due to hypercoagulable state. -Would highly recommend biopsy of nodule for further evaluation. Discussed with our radiology team who cannot perform biopsy at this time. Would recommend close follow-up as outpatient for further evaluation with PET scan and biopsy. #Pulmonary embolism -Possibly provoked during long drive from [place]. Also may be hypercoagulable considering possible malignancy. -Continue Eliquis (2) Pulmonary embolism: Acute cor pulmonale presence: unspecified Chronicity: acute Pulmonary embolism type: unspecified Qualified Code(s): I26.99 - Other pulmonary embolism without acute cor pulmonale (3) Pulmonary nodule: (4) COPD (chronic obstructive pulmonary disease) with emphysema: Supervising Physician Co-Signing Physician Notes Patient seen and examined with resident physician. Agree with the assessment and plan aside for any additions/exceptions noted: Patient clinically with COPD and chronic home oxygen needs. She had an eventful hospitalization and was identified as having a pulmonary embolism and a lung nodule that is highly suspicious for malignancy. Would recommend continued inhaler therapy as outlined above. She also has evidence of acute on chronic hypercapnic respiratory failure. Would recommend BiPAP and if she tolerates or is agreeable, would recommend discharge on NIV therapy such as trilogy. Continue pulmonary toilet with Mucinex, flutter valve and incentive spirometry. Continue anticoagulation for pulmonary embolism. Would recommend a minimum of 6 months of anticoagulation. Unclear whether this is an unprovoked or provoked event. She may be hypercoagulable given the possibility of lung cancer. Would recommend outpatient PET/CT imaging to follow-up on the 1.5 cm lower lobe lung nodule. Physical exam Constitutional: Frail appearing female lying in bed. No apparent distress. Eyes: Pupils are equal round and reactive to light. Conjunctivae are normal. Anicteric sclera. Ears nose, mouth and throat: Mallampati class 2. Normal posterior oropharynx. Uvula is midline. Neck: Trachea is midline. Visual inspection is normal. Respiratory: Prolonged phase of exhalation. No wheezes. Cardiovascular: Regular rate and rhythm. No murmurs. No edema. Gastrointestinal: Normal bowel sounds, soft, nontender and nondistended. No hepatosplenomegaly noted. Musculoskeletal: No cyanosis. Patient is able to move all extremities. Skin: No rashes, warm dry and intact. Neurologic: No obvious focal neurological deficits seen. Psychiatric: Alert and oriented x3 with a euthymic affect. History of Present Illness Reason for Consultation: Respiratory failure with hypoxia and hypercapnia Attending Physician: Adolfo Guerrero MD History of Present Illness 76 yo female with past medical history of COPD (three weeks ago she was started on 1 liter oxygen at all times), hypothyroidism; hyperlipidemia, hypertension, bronchitis, depression, prediabetic, and CAD s/p stent presented with lethargy and worsening SOB.She lives in [place] with her daughter. Recently, her son brought her to visit them and also her brother who lives in [place]. Drove up with her son the day before coming to the ED.Patient does not recall being brought to the hospital. Per previous note son said that she was not arousable after sleeping so EMS was called. In the ER her oxygen saturations were in the high 80s on 6 L. Subsequently the patient was admitted to the ICU and intubated. Once stabilized patient was downgraded to the floor and seems to be clinically improving although she remains on 6L nasal cannula. Denies chest pain, SOB. Endorses cough with phlegm. She has an extensive smoking history, roughly 50 pack years. She states she stopped smoking about 2 weeks. Denies any hospitalizations within the last year. Has been using Trelegy inhaler as of late. She was also placed on home oxygen 1 L within the last month. Does state she had melanoma ~2 years ago on right forearm which was removed. Denies family history of cancer or blood clots. Allergies Allergy/AdvReac Type Severity Reaction Status Date / Time pollen extracts Allergy Intermediate ITCHY Verified 03/26/22 20:26 EYES, SNEEZING, CONGESTION Home Medications Medication Instructions Recorded Confirmed Type albuterol sulfate 90 mcg/actuation 2 puff INHALATION Q4H PRN 03/26/22 03/26/22 History aerosol inhaler amlodipine 2.5 mg tablet 5 mg PO DAILY 03/26/22 03/26/22 History atenolol 25 mg tablet 25 mg PO DAILY 03/26/22 03/26/22 History fluticasone fur. 200 mcg-umeclid 1 inh INHALATION DAILY 03/26/22 03/26/22 History 62.5 mcg-vilant 25 mcg inhalat.powder (Trelegy Ellipta) levothyroxine 50 mcg tablet 50 mcg PO QAM 03/26/22 03/26/22 History loratadine 10 mg tablet 10 mg PO DAILY 03/26/22 03/26/22 History ryvwvrfuloxt-dprnbygg-lxeyss 1 tab PO DAILY 03/26/22 03/26/22 History tablet (Multivitamin 50 Plus) nicotine (polacrilex) 4 mg gum 4 mg PO DIRECTED PRN 03/26/22 03/26/22 History nitroglycerin 0.4 mg sublingual 0.4 mg SUBLINGUAL DIRECTED PRN 03/26/22 03/26/22 History tablet (Nitrostat) rosuvastatin 20 mg tablet 20 mg PO QPM 03/26/22 03/26/22 History sertraline 25 mg tablet 25 mg PO DAILY 03/26/22 03/26/22 History Patient History Medical History COPD (chronic obstructive pulmonary disease) Social History Smoking Status: Former smoker Second Hand Exposure: No; Do You Dip or Chew Tobacco: No; Tobacco Cessation Education Requested by Patient: No Hx Alcohol Use: No Hx Substance Use: No Preferred Language: Syriac Communication Ability: Effective Apartment Locator Required: No Beliefs That Will Affect Care: None Current Living Situation: Family Other Information That Helps Us Care for You: No Feels Safe at Home: Yes Safety Concerns: Feels Safe At This Time Assistive Devices: Oxygen - Continuous and Walker Review of Systems Review of Systems: All systems reviewed & are unremarkable except as noted in HPI & below Physical Exam Physical Exam: Constitutional: in no acute distress. Slow to answer questions. Vitals as above. HEENT: Moist mucous membranes. Clear oropharynx. NCAT. Neck: Supple without lymphadenopathy. Trachea midline. Lungs: Diminished bibasilar breath sounds L>R with rales and mild wheezing. Cardiac: Regular rate and rhythm. Trace LE edema bilaterally. Abdomen: Soft, nontender, and nondistended. MSK: No cyanosis Skin: warm, dry. Neurologic: Grossly intact cranial nerves. AOx3. Results & Data Results & Data ([facility]) Vital Signs (Past 12 Hours) Vital Signs Temp Pulse Pulse Resp BP BP Pulse Ox 04/04/22 12:00 36.5 C 71 18 124/73 97 04/04/22 08:00 36.6 C 76 66 20 113/67 96 04/04/22 03:22 36.8 C 69 17 121/71 92 Laboratory Results Laboratory Results WBC 8.81 K/uL (4.8-10.8) 04/03/22 07:43 RBC 4.65 M/uL (4.2-5.4) 04/03/22 07:43 Hgb 14.1 g/dL (12.0-16.0) 04/03/22 07:43 POC Hgb 13.6 g/dl (12.0-16.0) 03/26/22 23:41 Hct 42.8 % (37-47) 04/03/22 07:43 POC Hct 40 % (37-47) 03/26/22 23:41 MCV 92.0 fL (80-100) 04/03/22 07:43 MCH 30.3 pg (25-34) 04/03/22 07:43 MCHC 32.9 g/dL (32-36) 04/03/22 07:43 RDW Std Deviation 46.4 fL (36.4-46.3) H 04/03/22 07:43 RDW Coeff of Yosef 13.9 % (11.5-14.5) 04/03/22 07:43 Plt Count 195 K/uL (130-400) 04/03/22 07:43 MPV 8.7 fL (7.4-10.4) 04/03/22 07:43 Immature Gran % (Auto) 0.3 % 03/28/22 05:07 Neut % (Auto) 75.8 % 03/28/22 05:07 Lymph % (Auto) 8.8 % 03/28/22 05:07 [place] % (Auto) 15.1 % 03/28/22 05:07 Eos % (Auto) 0.0 % 03/28/22 05:07 Baso % (Auto) 0.0 % 03/28/22 05:07 Neut # (Auto) 8.76 K/uL (1.4-6.5) H 03/28/22 05:07 Lymph # (Auto) 1.01 K/uL (1.2-3.4) L 03/28/22 05:07 [place] # (Auto) 1.74 K/uL (0.11-0.59) H 03/28/22 05:07 Eos # (Auto) 0.00 K/uL (0-0.5) 03/28/22 05:07 Baso # (Auto) 0.00 K/uL (0-0.2) 03/28/22 05:07 Immature Gran # (Auto) 0.03 K/uL (0.00-0.02) H 03/28/22 05:07 PT 10.4 Seconds (9.0-12.0) 03/26/22 19:17 INR 1.0 (0.9-1.1) 03/26/22 19:17 APTT 28.6 Seconds (21.0-31.0) 03/27/22 07:50 PTT Ratio 1.0 03/27/22 07:50 Sample Site R Radial 03/27/22 04:51 POC pH 7.46 (7.35-7.45) H 03/27/22 04:51 POC pCO2 47 mmHg (35-46) H 03/27/22 04:51 POC pO2 68 mmHg (80-95) L 03/27/22 04:51 POC HCO3 34 earlene/L (19-24) H 03/27/22 04:51 POC Total CO2 35 mmol/L (24-31) H 03/27/22 04:51 POC Base Excess 10.0 earlene/L (-9-1.8) H 03/27/22 04:51 ABG pH (Temp Correct) 7.401 (7.35-7.45) 03/26/22 23:41 ABG pCO2 (Temp Corrct 52 mmHg (35-46) H 03/26/22 23:41 POC ABG pO2 at Pt Temp 57 03/26/22 23:41 POC ABG O2 Sat 94.0 % (90-95) 03/27/22 04:51 Satnam Test Pass 03/27/22 04:51 VBG pH 7.17 (7.36-7.41) L 03/26/22 19:17 VBG pCO2 113 mmHg (38-50) H 03/26/22 19:17 VBG pO2 62 mmHg 03/26/22 19:17 VBG HCO3 41 mmol/L 03/26/22 19:17 VBG O2 Saturation 88.6 % 03/26/22 19:17 VBG Base Excess 6.9 mEq/L 03/26/22 19:17 Barometric Pressure 729.4 mm/Hg 03/26/22 19:17 O2 Delivery Device Ventilator 03/27/22 04:51 POC O2 Rate 24 03/27/22 04:51 Minute Ventilation 9.6 03/27/22 04:51 POC FiO2 50 % 03/27/22 04:51 Tidal Volume 400 03/27/22 04:51 PEEP 5 03/27/22 04:51 POC Sodium 133 mmol/L (135-144) L 03/26/22 23:41 Sodium 132 mmol/L (136-145) L 04/04/22 05:51 POC Potassium 3.9 mmol/L (3.3-5.0) 03/26/22 23:41 Potassium 3.9 mmol/L (3.5-5.1) 04/04/22 05:51 Chloride 89 mmol/L (98-107) L 04/04/22 05:51 Carbon Dioxide 39 mmol/L (21-32) H 04/04/22 05:51 Anion Gap 4 (3-11) 04/04/22 05:51 BUN 14 mg/dl (6-23) 04/04/22 05:51 Creatinine 0.42 mg/dl (0.6-1.2) L 04/04/22 05:51 Est Cr Clr Drug Dosing 117.1 ml/min 04/04/22 05:51 Est GFR ( Amer) 117.0 ml/min 04/04/22 05:51 Est GFR (Non-Af Amer) 101.0 ml/min 04/04/22 05:51 BUN/Creatinine Ratio 33.3 (10-20) H 04/04/22 05:51 Glucose 111 mg/dl (70-99(Fasting)) H 04/04/22 05:51 POC Glucose 144 mg/dl (70-99) H 04/04/22 11:07 Estimat Average Glucose 128 mg/dl 03/28/22 05:07 Hemoglobin A1c 6.1 % (4.5-5.6) H 03/28/22 05:07 Lactate 0.5 mmol/L (0.4-2.0) 03/26/22 19:17 Calcium 8.7 mg/dl (8.5-10.1) 04/04/22 05:51 Phosphorus 3.5 mg/dl (2.5-4.9) 04/04/22 05:51 Magnesium 1.7 mg/dl (1.7-2.4) 04/04/22 05:51 Total Bilirubin 0.5 mg/dl (0.2-1.0) 03/26/22 19:17 AST 33 U/L (13-39) 03/26/22 19:17 ALT 23 U/L (7-52) 03/26/22 19:17 Alkaline Phosphatase 56 U/L (34-104) 03/26/22 19:17 Troponin I High Sens 111.0 pg/ml (0-14) H* 03/27/22 18:25 Total Protein 7.1 gm/dl (6.0-8.3) 03/26/22 19:17 Albumin 3.9 gm/dl (3.4-5.0) 03/26/22 19:17 Globulin 3.2 gm/dl (2.5-4.0) 03/26/22 19:17 Albumin/Globulin Ratio 1.2 (0.9-2) 03/26/22 19:17 Procalcitonin 0.10 ng/ml (0-0.5) 04/04/22 10:40 Urine Color Dark Yellow 03/26/22 Unknown Urine Appearance Clear (Clear) 03/26/22 Unknown Urine pH 5.5 (4.5-7.5) 03/26/22 Unknown Ur Specific Ceres 1.026 (1.000-1.030) 03/26/22 Unknown Urine Protein 1+ (Negative) H 03/26/22 Unknown Urine Glucose (UA) Negative (Negative) 03/26/22 Unknown Urine Ketones Negative (Negative) 03/26/22 Unknown Urine Blood 1+ (Negative) H 03/26/22 Unknown Urine Nitrite Negative (Negative) 03/26/22 Unknown Urine Bilirubin 1+ (Negative) H 03/26/22 Unknown Urine Urobilinogen Negative (Negative) 03/26/22 Unknown Ur Leukocyte Esterase Negative (Negative) 03/26/22 Unknown Urine WBC (Auto) 1-5 /hpf (0-5) 03/26/22 Unknown Urine RBC (Auto) 5-10 /hpf (0-4) H 03/26/22 Unknown U Hyaline Cast (Auto) 10-30 /lpf (0-5) H 03/26/22 Unknown U Epithel Cells (Auto) 10-20 /lpf (0-5) H 03/26/22 Unknown Urine Bacteria (Auto) Negative (Negative) 03/26/22 Unknown Nasal Screen MRSA (PCR) Negative (Negative) 03/26/22 23:00 Adenovirus (PCR) Not Detected (NotDetected) 03/26/22 Unknown B. pertussis DNA (PCR) Not Detected (NotDetected) 03/26/22 Unknown B.parapertussis DNA PCR Not Detected (NotDetected) 03/26/22 Unknown C. pneumoniae DNA (PCR) Not Detected (NotDetected) 03/26/22 Unknown Coronavirus OC43 (PCR) Not Detected (NotDetected) 03/26/22 Unknown Coronavirus HKU1 (PCR) Not Detected (NotDetected) 03/26/22 Unknown Coronavirus 229E (PCR) Not Detected (NotDetected) 03/26/22 Unknown SARS-CoV-2 (PCR) Not Detected (NotDetected) 03/26/22 Unknown Coronavirus NL63 (PCR) Not Detected (NotDetected) 03/26/22 Unknown Human Metapneumovir PCR Not Detected (NotDetected) 03/26/22 Unknown Influenza Type A (PCR) Not Detected (NotDetected) 03/26/22 Unknown Influenza Type B (PCR) Not Detected (NotDetected) 03/26/22 Unknown M. pneumoniae (PCR) Not Detected (NotDetected) 03/26/22 Unknown Parainfluenza 1 (PCR) Not Detected (NotDetected) 03/26/22 Unknown Parainfluenza 2 (PCR) Not Detected (NotDetected) 03/26/22 Unknown Parainfluenza 3 (PCR) Not Detected (NotDetected) 03/26/22 Unknown Parainfluenza 4 (PCR) Not Detected (NotDetected) 03/26/22 Unknown RSV (PCR) Not Detected (NotDetected) 03/26/22 Unknown Entero/Rhino (PCR) Not Detected (NotDetected) 03/26/22 Unknown Bld Cult Staph aureus PCR Negative (Negative) 03/27/22 16:59 Blood Culture MRSA PCR Negative (Negative) 03/27/22 16:[address] 03/26/22 19:03 CT head/brain wo con CLINICAL HISTORY: 76 years-old Female with AMS. Acutely altered mental status TECHNIQUE: Multiple axial CT images of the head were obtained without contrast. A dose lowering technique was utilized adhering to the principles of ALARA. CT DOSE: 537.48 mGy.cm COMPARISON: Chest radiograph of same day FINDINGS: No acute intracranial hemorrhage, midline shift, intracranial mass, hydrocephalus, territorial ischemia or abnormal extra-axial collection. Cerebral vascular calcifications. Age-related involutional changes. White matter hypodensities suggest chronic microvascular ischemic disease. The calvarium is intact. Endotracheal tube with nasopharyngeal secretions. Mild mucosal thickening of the ethmoid air cells. The mastoid air cells are clear. Unremarkable soft tissues and orbits. IMPRESSION: No acute intracranial abnormality. ACT 112: Negative or not required by law. The above report was generated using voice recognition software. It may contain grammatical, syntax or spelling errors. Electronically signed by: Marcio Alarcon M.D. 03/26/2022 8:22 PM Chest CTA 03/26/22 20:07 CT angio chest PE protocol CT DOSE: 429.21 mGy.cm HISTORY: 76 years-old Female with PE. Acute respiratory failure TECHNIQUE: Multiple CTA images of the chest were obtained after the intravenous administration of 170 ml Optiray. Coronal and sagittal MIPS were obtained from the axial data set and were submitted for review. All measurements were obtained according to NASCET criteria. A dose lowering technique was utilized adhering to the principles of ALARA. COMPARISON: Chest radiograph of same day FINDINGS: CTA: The heart is normal in size. Extensive coronary artery calcifications. Trace pericardial effusion. Atherosclerosis of the thoracic aorta without aneurysm. There is patency of the imaged great vessels. Satisfactory opacification of the pulmonary arterial with reflux into the IVC. There are a few small segmental and subsegmental pulmonary emboli noted in the right middle and lower lobes. No central pulmonary emboli identified. No evidence of right heart strain. CT CHEST: No thyroid nodule. Prominent paratracheal with mildly enlarged subcarinal lymph nodes measure up to 10 mm. Subcentimeter bilateral hilar adenopathy. An endotracheal tube is present within the trachea, 1.7 cm superior to the astrid. Enteric tube courses into the stomach with distal tip outside the lezaw-co-ocfx. There is a suspicious subpleural solid nodule within the left lower lobe on image 116 measures 1.5 x 1.2 x 1.5 cm. Severe emphysema. Moderate bronchial wall thickening with multifocal mucus plugging. Bibasilar predominate multifocal tree-in-bud nodules. Subsegmental right greater than left bibasilar dependent consolidation. Tracheobronchial secretions. The study is degraded by respiratory motion artifact. Nonspecific mild distal esophageal wall thickening. There is moderate thickening of the adrenal glands suggestive of hyperplasia. 3.4 cm hypodense lesion of the superior pole right kidney is incompletely characterized however suggests a probable cyst. Unremarkable soft tissues. Degenerative changes of the spine and shoulders. Age-indeterminate moderate T4, T8 and T9 compression deformities without retropulsion or definite paravertebral edema. Midthoracic levoscoliosis. IMPRESSION: 1. Small segmental and subsegmental right-sided pulmonary emboli. 2. Satisfactory positioning of the endotracheal and enteric tubes. 3. Suspicious 1.5 cm left lower lobe pulmonary nodule. Follow-up with pulmonology is needed. 4. Severe emphysema with bronchitis. Tracheobronchial secretions with bibasilar mucous plugging. 5. Mild dependent right greater than left bibasilar consolidation with mid to lower lung zone predominant bilateral tree-in-bud nodules compatible with an infectious or inflammatory bronchiolitis. 6. Age-indeterminate thoracic compression deformities are favored to be chronic. ACT 112: Negative or not required by law. The above report was generated using voice recognition software. It may contain grammatical, syntax or spelling errors. Electronically signed by: Marcio Alarcon M.D. 03/26/2022 8:37 PM Venous Doppler Study 03/27/22 00:51 US venous doppler LE CLINICAL HISTORY: Bilateral leg pain and swelling. Reported pulmonary embolus. COMPARISON: None available at the time of this dictation. TECHNIQUE: Bilateral lower extremity real-time compression venous ultrasound with Color Doppler imaging. Utilizing real-time ultrasonic imaging multiple real time high-resolution ultrasonic images with compression and noncompression maneuvers of the deep venous system in addition to color doppler imaging were performed from the common femoral vein through the proximal calf veins. FINDINGS: Currently there is normal compressibility of the deep venous system from the common femoral vein through the proximal calf veins. No current evidence of acute thrombosis is identified. Impression: No evidence of deep venous thrombus. ACT 112: Negative or not required by law. Electronically signed by: Bebeto Beverly M.D. 03/27/2022 7:27 AM Chest X-Ray 04/04/22 09:23 XR chest 1V portable CLINICAL HISTORY: follow up hypoxia COMPARISON STUDY: Chest CT March 26, 2022. Chest radiograph April 02, 2022. FINDINGS: No pneumothorax is present. Emphysema is better depicted on prior chest CT. Suspected small bilateral pleural effusions are noted. Retrocardiac opacity is again noted with additional hazy bibasilar opacities. Appearance of the chest is unchanged. No evidence for overt pulmonary edema. IMPRESSION: 1. No change in bibasilar opacities, including retrocardiac opacity with volume loss. This could reflect left lower lobe collapse or pneumonia. Radiographic f ollow-up is recommended. 2. Emphysema. 3. Small bilateral pleural effusions. ACT 112: Negative or not required by law. Electronically signed by: Carlos Elena M.D. 04/04/2022 10:19 AM Resident Activity Tracking Resident Involvement: Resident Care Provided Care Provided: [facility]
[2022-04-04] MEDS ORDERED: Heparin IV Adult Wt-Based Standard *NO* Bolus Protocol IV SCH (15:30)
[2022-04-04] MEDS ORDERED: HEPARIN SODIUM/DEXTROSE 25,000 UNITS/500 ML BAG IV SCH (15:30)
--- NOTE | 2022-04-04 15:48 | Billing Data ---
Date of Service April 04, 2022 Coding Level of Care Code 66231 Initial Inpt Care Lvl 3
[2022-04-04] MEDS: ROSUVASTATIN CALCIUM 20 MG TAB PO SCH (20:12)
[2022-04-04] MEDS ORDERED: APIXABAN 5 MG TABLET PO SCH (21:00)
[2022-04-05] MEDS: LEVOTHYROXINE SODIUM 50 MCG TABLET PO SCH (06:43)
[2022-04-05 07:21] LABS: BUN Creatinine Ratio 37.5 (10-20); Calcium 8.7 mg/dl (8.5-10.1); Creatinine Clr Calc Pharmacy 103.9 ml/min; Est GFR (Non-African American) 96.6 ml/min; Magnesium 1.8 mg/dl (1.7-2.4); Potassium 3.6 mmol/L (3.5-5.1)
[2022-04-05] MEDS: guaiFENesin 600 MG TABCR PO SCH ×2 (08:12→23:00)
[2022-04-05] MEDS: APIXABAN 5 MG TABLET PO SCH ×2 (08:12→23:00)
[2022-04-05] MEDS: ATENOLOL 25 MG TABLET PO SCH (08:13)
[2022-04-05] MEDS: MULTI VIT W/MINERALS LIQUID 15 ML UDP PO SCH (08:13)
[2022-04-05] MEDS: amLODIPine BESYLATE 5 MG TAB PO SCH (08:13)
[2022-04-05] MEDS: SERTRALINE HCL 50 MG TABLET PO SCH (08:13)
[2022-04-05] MEDS: LORATADINE 10 MG TAB PO SCH (08:13)
[2022-04-05] MEDS: FLUTICASONE FUROATE 200MCG 14 PUFFS/INHALER INH SCH (08:13)
[2022-04-05] MEDS: UMECLIDINIUM/VILANTEROL 62.5/25MCG 7 PUFFS/INHALER INH SCH (08:14)
[2022-04-05] MEDS: INSULIN ASPART PER UNIT SC SCH ×4 (08:15→20:48)
[2022-04-05] MEDS ORDERED: FUROSEMIDE INJ 20 MG/2 ML VIAL IV ONE (15:19)
--- NOTE | 2022-04-05 15:19 | Hospitalist Progress Note ---
Date of Service April 05, 2022 Assessment & Plan (1) Acute respiratory failure with hypoxia and hypercarbia: Plan: Present on admission with worsening SOB and lethargy Possible related to COPD exacebation ABG on admission with pH 7.31/ pCO2 85/ PHCO3 43 Pt was intubated on vent support on admission S/P extubated on 03/27 CTA chest showed small segmental and subsegmental right-sided pulmonary emboli. Severe emphysema with bronchitis. Tracheobronchial secretions with bibasilar mucous plugging. CXR showed Interval development of small to moderate-sized left pleural effusion with left lower lobe atelectasis/collapse. There is also evidence for small right pleural effusion and right basilar atelectasis. received IV Zosyn, Vanco and doxycycline and solumedrol in the in the ER Sputum cx showed Moraxella catarrhalis IV Levaquin changed to Augmentin IV steroid was discontinued by the entry level administrative assistant Continued Augmentin until 04/03 Lasix 40mg IV given (04/03) Added mucinex, flatter valve, cont. IS Pt was on oxygen at home prior coming to [facility] - not clear how much she used (seems on and off O2) Will need to get 2 step on discharge 04/04 -patient cont. to require 5 to 6 L of oxygen. Repeat chest x-ray now. Pulmonology consulted. Per pulmonary medicine Aggressive pulmonary toilet. Discussed consistent use of flutter valve and incentive spirometer. Wean oxygen as tolerated with saturation goal of 88-92%. -Continue current inhaler therapy. Consider transitioning to Brovana and Pulmicort due to poor inspiratory capacity. Recommend BiPAP at night. Strongly encouraged good compliance with BiPAP given her evidence of acute on chronic hypercapnic respiratory failure. Would likely also benefit from NIV upon discharge Pulmonary Nodule -1.5 cm pulmonary nodule within left lower lobe seen on CT imaging during his hospital stay. -Size and morphology of nodule concerning for primary lung cancer. Recommend PET/CT as an outpatient. Nodule not amenable to bronchoscopic biopsy given its location. It would be amenable to CT-guided biopsy. Pt not interested in work-up at this time. #Pulmonary embolism -Possibly hypercoagulable given the concern for lung cancer. Would recommend at least 6-months of anticoagulation. Pulmonary embolism. CTA chest showed small segmental and subsegmental right-sided pulmonary emboli. Doppler of LE showed no DVT She was starting on IV heparin drip, then transition lovenox 80mg BID Lovenox discontinued and transition to Eliquis Continue Eliquis BID Elevated troponin Mostly due to demand ischemia from hypoxia Initial troponin 150.9 then peak to 157, now trending down to 118 Echo showed no segmental LV wall motion abnormalities denies any chest pain Pt was on IV heparin drip for the PE, then transition to Lovenox, now on Eliquis continue atenolol and statin Clinically stable Lower extremity edema Doppler of LE showed no evidence of DVT Lasix IV given Swelling improved significantly Stable Weakness PT/OT recommended SNF for inpatient therapy Spoke to family and would like pt to get PT/OT done outpatient Pt plans to return back to [place] on 04/14 Continue PT/OT Fall precaution CAD status post stent Continue her beta tristan and statin Hypothyroidism Continue Synthroid. Hypertension: Continue amlodipine and atenolol. Hyperlipidemia Continue statin. Depression Continue On Zoloft. DVT prophylaxis on Eliquis BID Code status Full code Disposition PT/OT recommended inpatient rehab Plan to transfer to rehab once medical stable Admission and Anticipated Discharge Date Admission Date: March 26, 2022 Subjective Pt was seen in follow up of shortness of breath, hypoxia, likely 2/2 COPD exacerbation Extubated on 03/27 Sitting up in bed in NAD Continues to require 5-6L NC oxygen Denies any chest pain, palpitation, dizziness, increased shortness of breath, or cough Patient's son updated over the phone Review of Systems Review of Systems: All systems reviewed & are unremarkable except as noted in Subjective Physical Exam Physical Exam: General- No acute distress Head- atraumatic Eyes- PERRL, EOMI, ENT- oropharynx clear Neck- supple, no JVD Lungs- diminished BS, prolonged exp. phase Heart- regular rhythm; no murmur Abdomen- normal bowel sounds, soft, nontender Extremities- no calf tenderness, no edema Neuro- alert, oriented x 3; PERRL, EOMI; no facial palsy; no dysarthria Skin- warm & dry Results & Data Results & Data ([facility]) Vital Signs (Past 12 Hours) Vital Signs Temp Pulse Pulse Resp BP BP Pulse Ox 04/05/22 12:20 36.4 C L 65 21 103/64 93 04/05/22 08:00 70 04/05/22 07:45 36.6 C 62 18 130/76 91 Laboratory Results 04/05/22 04/05/22 04/05/22 Range/Units 11:31 07:13 06:15 Sodium 132 L (136-145) mmol/L Potassium 3.6 (3.5-5.1) mmol/L Chloride 90 L (98-107) mmol/L Carbon Dioxide 39 H (21-32) mmol/L Anion Gap 3 (3-11) BUN 18 (6-23) mg/dl Creatinine 0.48 L (0.6-1.2) mg/dl Est Cr Clr Drug Dosing 103.9 ml/min Est GFR ( Amer) 112.0 ml/min Est GFR (Non-Af Amer) 96.6 ml/min BUN/Creatinine Ratio 37.5 H (10-20) Glucose 115 H (70-99(Fasting)) mg/dl POC Glucose 104 H 116 H (70-99) mg/dl Calcium 8.7 (8.5-10.1) mg/dl Magnesium 1.8 (1.7-2.4) mg/dl 04/04/22 04/04/22 04/04/22 Range/Units 20:19 16:28 07:21 Sodium (136-145) mmol/L Potassium (3.5-5.1) mmol/L Chloride (98-107) mmol/L Carbon Dioxide (21-32) mmol/L Anion Gap (3-11) BUN (6-23) mg/dl Creatinine (0.6-1.2) mg/dl Est Cr Clr Drug Dosing ml/min Est GFR ( Amer) ml/min Est GFR (Non-Af Amer) ml/min BUN/Creatinine Ratio (10-20) Glucose (70-99(Fasting)) mg/dl POC Glucose 116 H 119 H 104 H (70-99) mg/dl Calcium (8.5-10.1) mg/dl Magnesium (1.7-2.4) mg/dl Medications Administered Current Inpatient Medications Albuterol (Albuterol Hfa 8 Gm Inhaler) 2 puffs INH Q4H PRN PRN Reason: Shortness Of Breath Stop: 04/25/22 23:20 Amlodipine Besylate (Amlodipine Besylate 5 Mg Tab) 5 mg PO DAILY ABDULKADIR Stop: 04/26/22 08:59 Last Admin: 04/05/22 08:13 Dose: 5 mg Documented by: Apixaban (Apixaban 5 Mg Tablet) 5 mg PO BID ABDULKADIR Stop: 05/04/22 20:59 Last Admin: 04/05/22 08:12 Dose: 5 mg Documented by: Atenolol (Atenolol 25 Mg Tablet) 25 mg PO DAILY ABDULKADIR Stop: 04/26/22 08:59 Last Admin: 04/05/22 08:13 Dose: 25 mg Documented by: Dextrose (Dextrose 50% 50 Ml Syringe) 25 - 50 ml IV UD PRN; Protocol PRN Reason: Hypoglycemia Protocol Stop: 04/26/22 10:29 Fluticasone Furoate (Fluticasone Furoate 200mcg 14 Puffs/Inhaler) 1 puffs INH DAILY ABDULKADIR Stop: 04/26/22 08:59 Last Admin: 04/05/22 08:13 Dose: 1 puffs Documented by: Furosemide (Furosemide Inj 20 Mg/2 Ml Vial) 20 mg IV ONE ONE Stop: 04/05/22 15:20 Glucagon (Glucagon For Inj 1 Mg Vial) 1 mg IM UD PRN; Protocol PRN Reason: Hypoglycemia Protocol Stop: 04/26/22 10:29 Glucose (Glucose 40% Gel 15 Gm Tube) 15 - 30 gm PO UD PRN; Protocol PRN Reason: Hypoglycemia Protocol Stop: 04/26/22 10:29 Glucose (Glucose 10 Tabs/Tube) 4 - 8 tabs PO UD PRN; Protocol PRN Reason: Hypoglycemia Protocol Stop: 04/26/22 10:29 Guaifenesin (Guaifenesin 600 Mg Tabcr) 600 mg PO Q12 ABDULKADIR Stop: 05/04/22 08:59 Last Admin: 04/05/22 08:12 Dose: 600 mg Documented by: Magnesium Sulfate/Dextrose (Magnesium Sulfate / D5w) 1 gm in 100 mls @ 50 mls/hr IV ONE ONE Stop: 04/05/22 17:17 Insulin Aspart (Insulin Aspart Per Unit) 0 units SC ACHS ABDULKADIR Stop: 04/26/22 11:29 Last Admin: 04/05/22 12:27 Dose: Not Given Documented by: Ipratropium [place] (Ipratropium [place] Neb Soln 0.02% 2.5 Ml Vial) 0.5 mg INH Q4H PRN PRN Reason: SOB/wheezing Stop: 04/30/22 21:29 Levalbuterol HCl (Levalbuterol 1.25mg/0.5ml Neb) 1.25 mg INH Q4H PRN PRN Reason: SOB/wheezing Stop: 04/30/22 21:29 Levothyroxine Sodium (Levothyroxine Sodium 50 Mcg Tablet) 50 mcg PO DAILYBB ABDULKADIR Stop: 04/26/22 06:29 Last Admin: 04/05/22 06:43 Dose: 50 mcg Documented by: Loratadine (Loratadine 10 Mg Tab) 10 mg PO DAILY ABDULKADIR Stop: 04/26/22 08:59 Last Admin: 04/05/22 08:13 Dose: 10 mg Documented by: Miscellaneous (Carbohydrates For Hypoglycemia ) 15 - 30 gm PO UD PRN PRN Reason: Hypoglycemia Treatment Stop: 04/26/22 10:29 Multivitamins/Minerals (Multi Vit W/Minerals Liquid 15 Ml Udp) 15 ml PO DAILY ABDULKADIR Stop: 04/26/22 08:59 Last Admin: 04/05/22 08:13 Dose: 15 ml Documented by: Nitroglycerin (Nitroglycerin Sl 0.4 Mg/Tab Tab) 0.4 mg SL Q5M PRN PRN Reason: Chest Pain Stop: 04/25/22 23:20 Rosuvastatin Calcium (Rosuvastatin Calcium 20 Mg Tab) 20 mg PO QPM ABDULKADIR Stop: 04/26/22 20:59 Last Admin: 04/04/22 20:12 Dose: 20 mg Documented by: Sertraline HCl (Sertraline Hcl 50 Mg Tablet) 25 mg PO DAILY ABDULKADIR Stop: 04/26/22 08:59 Last Admin: 04/05/22 08:13 Dose: 25 mg Documented by: Umeclidinium/Vilanterol (Umeclidinium/Vilanterol 62.5/25mcg 7 Puffs/Inhaler) 1 puffs INH DAILY ABDULKADIR Stop: 04/26/22 08:59 Last Admin: 04/05/22 08:14 Dose: 1 puffs Documented by:
[2022-04-05] MEDS ORDERED: MAGNESIUM SULFATE / D5W 1 GM/100 ML BAG IV ONE (15:20)
--- NOTE | 2022-04-05 17:33 | Pulmonology Progress Note ---
Date of Service April 05, 2022 Assessment & Plan (1) Acute respiratory failure with hypoxia and hypercarbia: Plan: 76 yo female with past medical history of COPD (three weeks ago she was started on 1 liter oxygen at all times), hypothyroidism; hyperlipidemia, hypertension, bronchitis, depression, prediabetic, and CAD s/p stent presented with lethargy and worsening SOB. #Acute respiratory failure with hypoxia and hypercarbia -Likely secondary to acute on chronic COPD exacerbation with superimposed chronic emphysema -Small pleural effusion noted which is not amenable to thoracentesis. Recommend maintaining a negative fluid balance. -Wean oxygen as tolerated with saturation goal of 88-92%. -Continue current inhaler therapy. Consider transitioning to Brovana and Pulmicort due to poor inspiratory capacity. -Aggressive pulmonary toilet. Discussed consistent use of flutter valve and incentive spirometer. -Patient refused BiPAP last evening. Strongly encouraged good compliance with BiPAP given her evidence of acute on chronic hypercapnic respiratory failure. Would likely also benefit from NIV upon discharge #Pulmonary Nodule -1.5 cm pulmonary nodule within left lower lobe seen on CT imaging during his hospital stay. -Size and morphology of nodule concerning for primary lung cancer. Recommend PET/CT as an outpatient. Nodule not amenable to bronchoscopic biopsy given its location. It would be amenable to CT-guided biopsy. #Pulmonary embolism -Possibly hypercoagulable given the concern for lung cancer. Would recommend at least 6-months of anticoagulation. Thank you for allowing us to participate in the care of this patient. Please call with questions. (2) Pulmonary embolism: Acute cor pulmonale presence: unspecified Chronicity: acute Pulmonary embolism type: unspecified Qualified Code(s): I26.99 - Other pulmonary embolism without acute cor pulmonale (3) Pulmonary nodule: (4) COPD (chronic obstructive pulmonary disease) with emphysema: Admission and Anticipated Discharge Date Admission Date: March 26, 2022 Subjective Patient seen and examined. Denies any significant complaint at present. Currently requiring oxime mask and saturating in the low 90s. Granddaughter is at bedside. Patient refused BiPAP last night. Review of Systems Review of Systems: All systems reviewed & are unremarkable except as noted in HPI & below Physical Exam Physical Exam: Constitutional: Frail appearing female lying in bed. No apparent distress. Eyes: Pupils are equal round and reactive to light. Conjunctivae are normal. Anicteric sclera. Ears nose, mouth and throat: Mallampati class 2. Normal posterior oropharynx. Uvula is midline. Neck: Trachea is midline. Visual inspection is normal. Respiratory: Prolonged phase of exhalation. No wheezes. Cardiovascular: Regular rate and rhythm. No murmurs. No edema. Gastrointestinal: Normal bowel sounds, soft, nontender and nondistended. No hepatosplenomegaly noted. Musculoskeletal: No cyanosis. Patient is able to move all extremities. Skin: No rashes, warm dry and intact. Neurologic: No obvious focal neurological deficits seen. Psychiatric: Alert and oriented x3 with a euthymic affect. Results & Data Results & Data ([facility]) Vital Signs (Past 12 Hours) Vital Signs Temp Pulse Pulse Resp BP BP Pulse Ox 04/05/22 15:49 36.5 C 63 18 115/68 93 04/05/22 12:20 36.4 C L 65 21 103/64 93 04/05/22 08:00 70 04/05/22 07:45 36.6 C 62 18 130/76 91 PG Care Time/CCT Total # of Minutes Spent Total Time Spent with Patient: Total time spent is greater than 50% in coordination of care (as documented) at patient's floor/unit and/or counseling patient: Coding Level of Care Code 03957 Subseq Hosp Care Lvl 2 Diagnoses Acute respiratory failure with hypoxia and hypercarbia J96.01; J96.02 Pulmonary embolism I26.99 Acute cor pulmonale presence: unspecified Chronicity: acute Pulmonary embolism type: unspecified Pulmonary nodule R91.1 COPD (chronic obstructive pulmonary disease) with emphysema J43.9
[2022-04-05] MEDS: ROSUVASTATIN CALCIUM 20 MG TAB PO SCH (23:00)
[2022-04-06] MEDS: LEVOTHYROXINE SODIUM 50 MCG TABLET PO SCH (06:09)
--- NOTE | 2022-04-06 08:06 | Hospitalist Progress Note ---
Date of Service April 06, 2022 Assessment & Plan (1) Acute respiratory failure with hypoxia and hypercarbia: Plan: Present on admission with worsening SOB and lethargy Possible related to COPD exacebation ABG on admission with pH 7.31/ pCO2 85/ PHCO3 43 Pt was intubated on vent support on admission Extubated on 03/27 CTA chest showed small segmental and subsegmental right-sided pulmonary emboli. Severe emphysema with bronchitis. Tracheobronchial secretions with bibasilar mucous plugging. CXR showed Interval development of small to moderate-sized left pleural effusion with left lower lobe atelectasis/collapse. There is also evidence for small right pleural effusion and right basilar atelectasis. received IV Zosyn, Vanco and doxycycline and solumedrol in the in the ER Sputum cx showed Moraxella catarrhalis IV Levaquin changed to Augmentin IV steroid was discontinued by the nuclear fuel enrichment technician Continued Augmentin until 04/03 Lasix 40mg IV given (04/03) Added mucinex, flatter valve, cont. IS Pt was on oxygen at home prior coming to [facility] - not clear how much she used (seems on and off O2) Will need to get 2 step on discharge 04/04 -patient cont. to require 5 to 6 L of oxygen. Repeat chest x-ray now. Pulmonology consulted. Per pulmonary medicine Aggressive pulmonary toilet. Discussed consistent use of flutter valve and incentive spirometer. Wean oxygen as tolerated with saturation goal of 88-92%. Transition to Brovana and Pulmicort due to poor inspiratory capacity. Recommend BiPAP at night. Strongly encouraged good compliance with BiPAP given her evidence of acute on chronic hypercapnic respiratory failure. Would likely also benefit from NIV upon discharge Due to chronic hypercapnic respiratory failure consequent to COPD, the patient now requires a noninvasive home ventilator. Bilevel therapy with and without a rate would be ineffective as patient requires a volume targeted mode. Ventilation is required to decrease work of breathing and improve pulmonary status. Interruption of ventilator support would lead to decline of health status. NIMV settings should be AVAPS-AE; Breath rate: auto; Inspiratory time: auto; Sigh: off; Tidal Volume: [350-450], PS min: [4-10 PS max: 12-20]; EPAP min: [6- 10]; EPAP max: [10-16]; AVAPS rate: [14 during sleep and as needed] Pulmonary Nodule -1.5 cm pulmonary nodule within left lower lobe seen on CT imaging during his hospital stay. -Size and morphology of nodule concerning for primary lung cancer. Recommend PET/CT as an outpatient. Nodule not amenable to bronchoscopic biopsy given its location. It would be amenable to CT-guided biopsy. Pt not interested in work-up at this time. #Pulmonary embolism -Possibly hypercoagulable given the concern for lung cancer. Would recommend at least 6-months of anticoagulation. Pulmonary embolism. CTA chest showed small segmental and subsegmental right-sided pulmonary emboli. Doppler of LE showed no DVT She was starting on IV heparin drip, then transition lovenox 80mg BID Lovenox discontinued and transition to Eliquis Continue Eliquis BID Elevated troponin Mostly due to demand ischemia from hypoxia Initial troponin 150.9 then peak to 157, now trending down to 118 Echo showed no segmental LV wall motion abnormalities denies any chest pain Pt was on IV heparin drip for the PE, then transition to Lovenox, now on Eliquis continue atenolol and statin Clinically stable Lower extremity edema Doppler of LE showed no evidence of DVT Lasix IV given Swelling improved significantly Stable Weakness PT/OT recommended SNF for inpatient therapy Spoke to family and would like pt to get PT/OT done outpatient Pt plans to return back to [place] on 04/14 Continue PT/OT Fall precaution CAD status post stent Continue her beta tristan and statin Hypothyroidism Continue Synthroid. Hypertension: Continue amlodipine and atenolol. Hyperlipidemia Continue statin. Depression Continue On Zoloft. DVT prophylaxis on Eliquis BID Code status Full code Disposition PT/OT recommended inpatient rehab Plan to transfer to rehab once medical stable Admission and Anticipated Discharge Date Admission Date: March 26, 2022 Subjective Pt was seen in follow up of shortness of breath, hypoxia, likely 2/2 COPD exacerbation Extubated on 03/27 Sitting up in bed in NAD Useed BiPAP overnight, and this morning, currently on oxygen mask on 5 to 6 L O2 Denies any chest pain, palpitation, dizziness, increased shortness of breath, or cough Review of Systems Review of Systems: All systems reviewed & are unremarkable except as noted in Subjective Physical Exam Physical Exam: General- No acute distress Head- atraumatic Eyes- PERRL, EOMI, ENT- oropharynx clear Neck- supple, no JVD Lungs- diminished BS, prolonged exp. phase, on oxymask Heart- regular rhythm; no murmur Abdomen- normal bowel sounds, soft, nontender Extremities- no calf tenderness, no edema Neuro- alert, oriented x 3; PERRL, EOMI; no facial palsy; no dysarthria Skin- warm & dry Results & Data Results & Data ([facility]) Vital Signs (Past 12 Hours) Vital Signs Temp Pulse Pulse Resp BP Pulse Ox 04/06/22 08:03 36.6 C 66 20 138/72 94 04/06/22 03:50 67 18 97 04/06/22 03:00 36.8 C 64 18 121/79 96 04/06/22 00:00 57 L 04/05/22 23:00 36.4 C L 59 L 20 132/80 93 04/05/22 21:50 60 22 92 Medications Administered Current Inpatient Medications Albuterol (Albuterol Hfa 8 Gm Inhaler) 2 puffs INH Q4H PRN PRN Reason: Shortness Of Breath Stop: 04/25/22 23:20 Amlodipine Besylate (Amlodipine Besylate 5 Mg Tab) 5 mg PO DAILY ABDULKADIR Stop: 04/26/22 08:59 Last Admin: 04/05/22 08:13 Dose: 5 mg Documented by: Apixaban (Apixaban 5 Mg Tablet) 5 mg PO BID ABDULKADIR Stop: 05/04/22 20:59 Last Admin: 04/05/22 23:00 Dose: 5 mg Documented by: Atenolol (Atenolol 25 Mg Tablet) 25 mg PO DAILY ABDULKADIR Stop: 04/26/22 08:59 Last Admin: 04/05/22 08:13 Dose: 25 mg Documented by: Dextrose (Dextrose 50% 50 Ml Syringe) 25 - 50 ml IV UD PRN; Protocol PRN Reason: Hypoglycemia Protocol Stop: 04/26/22 10:29 Fluticasone Furoate (Fluticasone Furoate 200mcg 14 Puffs/Inhaler) 1 puffs INH DAILY ABDULKADIR Stop: 04/26/22 08:59 Last Admin: 04/05/22 08:13 Dose: 1 puffs Documented by: Glucagon (Glucagon For Inj 1 Mg Vial) 1 mg IM UD PRN; Protocol PRN Reason: Hypoglycemia Protocol Stop: 04/26/22 10:29 Glucose (Glucose 40% Gel 15 Gm Tube) 15 - 30 gm PO UD PRN; Protocol PRN Reason: Hypoglycemia Protocol Stop: 04/26/22 10:29 Glucose (Glucose 10 Tabs/Tube) 4 - 8 tabs PO UD PRN; Protocol PRN Reason: Hypoglycemia Protocol Stop: 04/26/22 10:29 Guaifenesin (Guaifenesin 600 Mg Tabcr) 600 mg PO Q12 ABDULKADIR Stop: 05/04/22 08:59 Last Admin: 04/05/22 23:00 Dose: 600 mg Documented by: Insulin Aspart (Insulin Aspart Per Unit) 0 units SC ACHS ABDULKADIR Stop: 04/26/22 11:29 Last Admin: 04/05/22 20:48 Dose: Not Given Documented by: Ipratropium [place] (Ipratropium [place] Neb Soln 0.02% 2.5 Ml Vial) 0.5 mg INH Q4H PRN PRN Reason: SOB/wheezing Stop: 04/30/22 21:29 Levalbuterol HCl (Levalbuterol 1.25mg/0.5ml Neb) 1.25 mg INH Q4H PRN PRN Reason: SOB/wheezing Stop: 04/30/22 21:29 Levothyroxine Sodium (Levothyroxine Sodium 50 Mcg Tablet) 50 mcg PO DAILYBB [facility] Stop: 04/26/22 06:29 Last Admin: 04/06/22 06:09 Dose: 50 mcg Documented by: Loratadine (Loratadine 10 Mg Tab) 10 mg PO DAILY ABDULKADIR Stop: 04/26/22 08:59 Last Admin: 04/05/22 08:13 Dose: 10 mg Documented by: Miscellaneous (Carbohydrates For Hypoglycemia ) 15 - 30 gm PO UD PRN PRN Reason: Hypoglycemia Treatment Stop: 04/26/22 10:29 Multivitamins/Minerals (Multi Vit W/Minerals Liquid 15 Ml Udp) 15 ml PO DAILY ABDULKADIR Stop: 04/26/22 08:59 Last Admin: 04/05/22 08:13 Dose: 15 ml Documented by: Nitroglycerin (Nitroglycerin Sl 0.4 Mg/Tab Tab) 0.4 mg SL Q5M PRN PRN Reason: Chest Pain Stop: 04/25/22 23:20 Rosuvastatin Calcium (Rosuvastatin Calcium 20 Mg Tab) 20 mg PO QPM ABDULKADIR Stop: 04/26/22 20:59 Last Admin: 04/05/22 23:00 Dose: 20 mg Documented by: Sertraline HCl (Sertraline Hcl 50 Mg Tablet) 25 mg PO DAILY [facility] Stop: 04/26/22 08:59 Last Admin: 04/05/22 08:13 Dose: 25 mg Documented by: Umeclidinium/Vilanterol (Umeclidinium/Vilanterol 62.5/25mcg 7 Puffs/Inhaler) 1 puffs INH DAILY ABDULKADIR Stop: 04/26/22 08:59 Last Admin: 04/05/22 08:14 Dose: 1 puffs Documented by:
[2022-04-06] MEDS: INSULIN ASPART PER UNIT SC SCH ×4 (08:22→21:13)
[2022-04-06] MEDS: guaiFENesin 600 MG TABCR PO SCH ×2 (09:13→21:16)
[2022-04-06] MEDS: APIXABAN 5 MG TABLET PO SCH ×2 (09:14→21:16)
[2022-04-06] MEDS: UMECLIDINIUM/VILANTEROL 62.5/25MCG 7 PUFFS/INHALER INH SCH (09:15)
[2022-04-06] MEDS: FLUTICASONE FUROATE 200MCG 14 PUFFS/INHALER INH SCH (09:15)
[2022-04-06 09:41] LABS: BUN Creatinine Ratio 29.4 (10-20); Calcium 9.1 mg/dl (8.5-10.1); Creatinine Clr Calc Pharmacy 97.3 ml/min; Est GFR (African American) 109.8 ml/min; Est GFR (Non-African American) 94.7 ml/min; Magnesium 1.8 mg/dl (1.7-2.4)
[2022-04-06] MEDS: SERTRALINE HCL 50 MG TABLET PO SCH (10:11)
[2022-04-06] MEDS: ATENOLOL 25 MG TABLET PO SCH (10:12)
[2022-04-06] MEDS: MULTI VIT W/MINERALS LIQUID 15 ML UDP PO SCH (10:12)
[2022-04-06] MEDS: amLODIPine BESYLATE 5 MG TAB PO SCH (10:12)
[2022-04-06] MEDS: LORATADINE 10 MG TAB PO SCH (10:12)
--- NOTE | 2022-04-06 12:45 | Pulmonology Progress Note ---
Date of Service April 06, 2022 Assessment & Plan (1) Acute respiratory failure with hypoxia and hypercarbia: Plan: 76 yo female with past medical history of COPD (three weeks ago she was started on 1 liter oxygen at all times), hypothyroidism; hyperlipidemia, hypertension, bronchitis, depression, prediabetic, and CAD s/p stent presented with lethargy and worsening SOB. #Acute respiratory failure with hypoxia and hypercarbia -Likely secondary to acute on chronic COPD exacerbation with superimposed chronic emphysema -Small pleural effusion noted which is not amenable to thoracentesis. Recommend maintaining a negative fluid balance. -Wean oxygen as tolerated with saturation goal of 88-92%. -Will change current inhalers to Brovana and Pulmicort. -Aggressive pulmonary toilet. Discussed consistent use of flutter valve and in centive spirometer. -Continue BiPAP today and at all times when sleeping. Due to chronic hypercapnic respiratory failure consequent to COPD, the patient now requires a noninvasive home ventilator. Bilevel therapy with and without a rate would be ineffective as patient requires a volume targeted mode. Ventilation is required to decrease work of breathing and improve pulmonary status. Interruption of ventilator support would lead to decline of health status. NIMV settings should be AVAPS-AE; Breath rate: auto; Inspiratory time: auto; Sigh: off; Tidal Volume: [350-450], PS min: [4-10 PS max: 12-20]; EPAP min: [6- 10]; EPAP max: [10-16]; AVAPS rate: [14 during sleep and as needed] #Pulmonary Nodule -1.5 cm pulmonary nodule within left lower lobe seen on CT imaging during his hospital stay. -Size and morphology of nodule concerning for primary lung cancer. Recommend PET/CT as an outpatient. Nodule not amenable to bronchoscopic biopsy given its location. It would be amenable to CT-guided biopsy. #Pulmonary embolism -Possibly hypercoagulable given the concern for lung cancer. Would recommend at least 6-months of anticoagulation. Thank you for allowing us to participate in the care of this patient. Please call with questions. (2) Pulmonary embolism: Acute cor pulmonale presence: unspecified Chronicity: acute Pulmonary embolism type: unspecified Qualified Code(s): I26.99 - Other pulmonary embolism without acute cor pulmonale (3) Pulmonary nodule: (4) COPD (chronic obstructive pulmonary disease) with emphysema: Admission and Anticipated Discharge Date Admission Date: March 26, 2022 Subjective Patient seen and examined this morning. She is currently requiring BiPAP support. She appears comfortable. She wore her BiPAP overnight. She denies any shortness of breath at present. Review of Systems Review of Systems: All systems reviewed & are unremarkable except as noted in HPI & below Physical Exam Physical Exam: Constitutional: Frail appearing female lying in bed. No apparent distress. Eyes: Pupils are equal round and reactive to light. Conjunctivae are normal. Anicteric sclera. Ears nose, mouth and throat: Mallampati class 2. Normal posterior oropharynx. Uvula is midline. Neck: Trachea is midline. Visual inspection is normal. Respiratory: Prolonged phase of exhalation. No wheezes. Cardiovascular: Regular rate and rhythm. No murmurs. No edema. Gastrointestinal: Normal bowel sounds, soft, nontender and nondistended. No hepatosplenomegaly noted. Musculoskeletal: No cyanosis. Patient is able to move all extremities. Skin: No rashes, warm dry and intact. Neurologic: No obvious focal neurological deficits seen. Psychiatric: Alert and oriented x3 with a euthymic affect. Results & Data Results & Data ([facility]) Vital Signs (Past 12 Hours) Vital Signs Temp Pulse Pulse Resp BP Pulse Ox 04/06/22 12:04 36.8 C 64 22 114/70 92 04/06/22 11:24 67 22 91 04/06/22 08:45 87 22 91 04/06/22 08:03 36.6 C 66 20 138/72 94 04/06/22 08:00 62 04/06/22 03:50 67 18 97 04/06/22 03:00 36.8 C 64 18 121/79 96 PG Care Time/CCT Total # of Minutes Spent Total Time Spent with Patient: Total time spent is greater than 50% in coordination of care (as documented) at patient's floor/unit and/or counseling patient: Coding Level of Care Code 44917 Subseq Hosp Care Lvl 2 Diagnoses Acute respiratory failure with hypoxia and hypercarbia J96.01; J96.02 Pulmonary embolism I26.99 Acute cor pulmonale presence: unspecified Chronicity: acute Pulmonary embolism type: unspecified Pulmonary nodule R91.1 COPD (chronic obstructive pulmonary disease) with emphysema J43.9
[2022-04-06] MEDS: FORMOTEROL 20 MCG/2 ML VIAL INH SCH (19:06)
[2022-04-06] MEDS: BUDESONIDE 0.5 MG/2 ML VIAL (PULMICORT) NEB SCH (19:06)
[2022-04-06] MEDS: ROSUVASTATIN CALCIUM 20 MG TAB PO SCH (21:16)
[2022-04-07] MEDS: LEVOTHYROXINE SODIUM 50 MCG TABLET PO SCH (05:35)
[2022-04-07] MEDS: FORMOTEROL 20 MCG/2 ML VIAL INH SCH ×2 (07:23→19:26)
[2022-04-07] MEDS: BUDESONIDE 0.5 MG/2 ML VIAL (PULMICORT) NEB SCH ×2 (07:23→19:26)
[2022-04-07] MEDS: INSULIN ASPART PER UNIT SC SCH ×4 (08:17→20:58)
[2022-04-07] MEDS: SERTRALINE HCL 50 MG TABLET PO SCH (08:19)
[2022-04-07] MEDS: guaiFENesin 600 MG TABCR PO SCH ×2 (08:19→19:46)
[2022-04-07] MEDS: LORATADINE 10 MG TAB PO SCH (08:20)
[2022-04-07] MEDS: amLODIPine BESYLATE 5 MG TAB PO SCH (08:20)
[2022-04-07] MEDS: ATENOLOL 25 MG TABLET PO SCH (08:20)
[2022-04-07] MEDS: APIXABAN 5 MG TABLET PO SCH ×2 (08:21→19:46)
[2022-04-07] MEDS: MULTI VIT W/MINERALS LIQUID 15 ML UDP PO SCH (08:22)
[2022-04-07] MEDS: MAGNESIUM OXIDE 400 MG TAB PO SCH (08:40)
--- NOTE | 2022-04-07 08:59 | Hospitalist Progress Note ---
Date of Service April 07, 2022 Assessment & Plan (1) Acute respiratory failure with hypoxia and hypercarbia: Plan: Present on admission with worsening SOB and lethargy Possible related to COPD exacebation ABG on admission with pH 7.31/ pCO2 85/ PHCO3 43 Pt was intubated on vent support on admission Extubated on 03/27 CTA chest showed small segmental and subsegmental right-sided pulmonary emboli. Severe emphysema with bronchitis. Tracheobronchial secretions with bibasilar mucous plugging. CXR showed Interval development of small to moderate-sized left pleural effusion with left lower lobe atelectasis/collapse. There is also evidence for small right pleural effusion and right basilar atelectasis. received IV Zosyn, Vanco and doxycycline and solumedrol in the in the ER Sputum cx showed Moraxella catarrhalis IV Levaquin changed to Augmentin IV steroid was discontinued by the street department dispatcher Continued Augmentin until 04/03 Lasix 40mg IV given (04/03) Added mucinex, flatter valve, cont. IS Pt was on oxygen at home prior coming to [facility] - not clear how much she used (seems on and off O2) Will need to get 2 step on discharge 04/04 -patient cont. to require 5 to 6 L of oxygen. Repeat chest x-ray now. Pulmonology consulted. Per pulmonary medicine Aggressive pulmonary toilet. Discussed consistent use of flutter valve and incentive spirometer. Wean oxygen as tolerated with saturation goal of 88-92%. Transition to Brovana and Pulmicort due to poor inspiratory capacity. Recommend BiPAP at night. Strongly encouraged good compliance with BiPAP given her evidence of acute on chronic hypercapnic respiratory failure. Would likely also benefit from NIV upon discharge Due to chronic hypercapnic respiratory failure consequent to COPD, the patient now requires a noninvasive home ventilator. Bilevel therapy with and without a rate would be ineffective as patient requires a volume targeted mode. Ventilation is required to decrease work of breathing and improve pulmonary status. Interruption of ventilator support would lead to decline of health st atus. NIMV settings should be AVAPS-AE; Breath rate: auto; Inspiratory time: auto; Sigh: off; Tidal Volume: [350-450], PS min: [4-10 PS max: 12-20]; EPAP min: [6- 10]; EPAP max: [10-16]; AVAPS rate: [14 during sleep and as needed] Pulmonary Nodule -1.5 cm pulmonary nodule within left lower lobe seen on CT imaging during his hospital stay. -Size and morphology of nodule concerning for primary lung cancer. Recommend PET/CT as an outpatient. Nodule not amenable to bronchoscopic biopsy given its location. It would be amenable to CT-guided biopsy. Pt not interested in work-up at this time. #Pulmonary embolism -Possibly hypercoagulable given the concern for lung cancer. Would recommend at least 6-months of anticoagulation. Pulmonary embolism. CTA chest showed small segmental and subsegmental right-sided pulmonary emboli. Doppler of LE showed no DVT She was starting on IV heparin drip, then transition lovenox 80mg BID Lovenox discontinued and transition to Eliquis Continue Eliquis BID Elevated troponin Mostly due to demand ischemia from hypoxia Initial troponin 150.9 then peak to 157, now trending down to 118 Echo showed no segmental LV wall motion abnormalities denies any chest pain Pt was on IV heparin drip for the PE, then transition to Lovenox, now on Eliquis continue atenolol and statin Clinically stable Lower extremity edema Doppler of LE showed no evidence of DVT Lasix IV given Swelling improved significantly Stable Weakness PT/OT recommended SNF for inpatient therapy Spoke to family and would like pt to get PT/OT done outpatient Pt plans to return back to [place] on 04/14 Continue PT/OT Fall precaution CAD status post stent Continue her beta tristan and statin Hypothyroidism Continue Synthroid. Hypertension: Continue amlodipine and atenolol. Hyperlipidemia Continue statin. Depression Continue On Zoloft. DVT prophylaxis on Eliquis BID Code status Full code Disposition PT/OT recommended inpatient rehab Plan to transfer to rehab once medical stable Admission and Anticipated Discharge Date Admission Date: March 26, 2022 Subjective Pt was seen in follow up of shortness of breath, hypoxia, likely 2/2 COPD exacerbation Extubated on 03/27 Sitting up in chair in NAD Used BiPAP overnight This morning, currently on oxygen mask on 6 L O2 Denies any chest pain, palpitation, dizziness, increased shortness of breath, or cough Review of Systems Review of Systems: All systems reviewed & are unremarkable except as noted in Subjective Physical Exam Physical Exam: General- No acute distress Head- atraumatic Eyes- PERRL, EOMI, ENT- oropharynx clear Neck- supple, no JVD Lungs- diminished BS, prolonged exp. phase, on oxymask Heart- regular rhythm; no murmur Abdomen- normal bowel sounds, soft, nontender Extremities- no calf tenderness, no edema Neuro- alert, oriented x 3; PERRL, EOMI; no facial palsy; no dysarthria Skin- warm & dry Results & Data Results & Data ([facility]) Vital Signs (Past 12 Hours) Vital Signs Temp Pulse Pulse Pulse Resp BP Pulse Ox 04/07/22 08:18 36.6 C 58 L 20 129/78 90 04/07/22 07:23 66 16 90 04/07/22 03:26 37.0 C 58 L 18 119/67 94 04/07/22 02:01 19 91 04/06/22 23:49 59 L 04/06/22 22:39 36.2 C L 60 20 129/66 94 04/06/22 21:10 76 20 91 Laboratory Results 04/07/22 04/06/22 04/06/22 Range/Units 07: 20:29 16:11 Sodium (136-145) mmol/L Potassium (3.5-5.1) mmol/L Chloride (98-107) mmol/L Carbon Dioxide (21-32) mmol/L Anion Gap (3-11) BUN (6-23) mg/dl Creatinine (0.6-1.2) mg/dl Est Cr Clr Drug Dosing ml/min Est GFR ( Amer) ml/min Est GFR (Non-Af Amer) ml/min BUN/Creatinine Ratio (10-20) Glucose (70-99(Fasting)) mg/dl POC Glucose 121 H 104 H 138 H (70-99) mg/dl Calcium (8.5-10.1) mg/dl Magnesium (1.7-2.4) mg/dl 04/06/22 04/06/22 Range/Units 11: 08:24 Sodium 132 L (136-145) mmol/L Potassium 4.0 (3.5-5.1) mmol/L Chloride 89 L (98-107) mmol/L Carbon Dioxide 39 H (21-32) mmol/L Anion Gap 4 (3-11) BUN 15 (6-23) mg/dl Creatinine 0.51 L (0.6-1.2) mg/dl Est Cr Clr Drug Dosing 97.3 ml/min Est GFR ( Amer) 109.8 ml/min Est GFR (Non-Af Amer) 94.7 ml/min BUN/Creatinine Ratio 29.4 H (10-20) Glucose 142 H (70-99(Fasting)) mg/dl POC Glucose 116 H (70-99) mg/dl Calcium 9.1 (8.5-10.1) mg/dl Magnesium 1.8 (1.7-2.4) mg/dl Medications Administered Current Inpatient Medications Albuterol (Albuterol Hfa 8 Gm Inhaler) 2 puffs INH Q4H PRN PRN Reason: Shortness Of Breath Stop: 04/25/22 23:20 Amlodipine Besylate (Amlodipine Besylate 5 Mg Tab) 5 mg PO DAILY [facility] Stop: 04/26/22 08:59 Last Admin: 04/07/22 08:20 Dose: 5 mg Documented by: Apixaban (Apixaban 5 Mg Tablet) 5 mg PO BID [facility] Stop: 05/04/22 20:59 Last Admin: 04/07/22 08:21 Dose: 5 mg Documented by: Atenolol (Atenolol 25 Mg Tablet) 25 mg PO DAILY ABDULKADIR Stop: 04/26/22 08:59 Last Admin: 04/07/22 08:20 Dose: 25 mg Documented by: Budesonide (Budesonide 0.5 Mg/2 Ml Vial (Pulmicort)) 0.5 mg NEB BIDR [facility] Stop: 05/06/22 18:59 Last Admin: 04/07/22 07:23 Dose: 0.5 mg Documented by: Dextrose (Dextrose 50% 50 Ml Syringe) 25 - 50 ml IV UD PRN; Protocol PRN Reason: Hypoglycemia Protocol Stop: 04/26/22 10:29 Formoterol Fumarate (Formoterol 20 Mcg/2 Ml Vial) 20 mcg INH BIDR [facility] Stop: 05/06/22 18:59 Last Admin: 04/07/22 07:23 Dose: 20 mcg Documented by: Glucagon (Glucagon For Inj 1 Mg Vial) 1 mg IM UD PRN; Protocol PRN Reason: Hypoglycemia Protocol Stop: 04/26/22 10:29 Glucose (Glucose 40% Gel 15 Gm Tube) 15 - 30 gm PO UD PRN; Protocol PRN Reason: Hypoglycemia Protocol Stop: 04/26/22 10:29 Glucose (Glucose 10 Tabs/Tube) 4 - 8 tabs PO UD PRN; Protocol PRN Reason: Hypoglycemia Protocol Stop: 04/26/22 10:29 Guaifenesin (Guaifenesin 600 Mg Tabcr) 600 mg PO Q12 ABDULKADIR Stop: 05/04/22 08:59 Last Admin: 04/07/22 08:19 Dose: 600 mg Documented by: Insulin Aspart (Insulin Aspart Per Unit) 0 units SC ACHS ABDULKADIR Stop: 04/26/22 11:29 Last Admin: 04/07/22 08:17 Dose: 5 units Documented by: Ipratropium [place] (Ipratropium [place] Neb Soln 0.02% 2.5 Ml Vial) 0.5 mg INH Q4H PRN PRN Reason: SOB/wheezing Stop: 04/30/22 21:29 Levalbuterol HCl (Levalbuterol 1.25mg/0.5ml Neb) 1.25 mg INH Q4H PRN PRN Reason: SOB/wheezing Stop: 04/30/22 21:29 Levothyroxine Sodium (Levothyroxine Sodium 50 Mcg Tablet) 50 mcg PO DAILYBB [facility] Stop: 04/26/22 06:29 Last Admin: 04/07/22 05:35 Dose: 50 mcg Documented by: Loratadine (Loratadine 10 Mg Tab) 10 mg PO DAILY ABDULKADIR Stop: 04/26/22 08:59 Last Admin: 04/07/22 08:20 Dose: 10 mg Documented by: Magnesium Oxide (Magnesium Oxide 400 Mg Tab) 400 mg PO QAM ABDULKADIR Stop: 05/07/22 08:59 Last Admin: 04/07/22 08:40 Dose: 400 mg Documented by: Miscellaneous (Carbohydrates For Hypoglycemia ) 15 - 30 gm PO UD PRN PRN Reason: Hypoglycemia Treatment Stop: 04/26/22 10:29 Multivitamins/Minerals (Multi Vit W/Minerals Liquid 15 Ml Udp) 15 ml PO DAILY ABDULKADIR Stop: 04/26/22 08:59 Last Admin: 04/07/22 08:22 Dose: 15 ml Documented by: Nitroglycerin (Nitroglycerin Sl 0.4 Mg/Tab Tab) 0.4 mg SL Q5M PRN PRN Reason: Chest Pain Stop: 04/25/22 23:20 Rosuvastatin Calcium (Rosuvastatin Calcium 20 Mg Tab) 20 mg PO QPM [facility] Stop: 04/26/22 20:59 Last Admin: 04/06/22 21:16 Dose: 20 mg Documented by: Sertraline HCl (Sertraline Hcl 50 Mg Tablet) 25 mg PO DAILY ABDULKADIR Stop: 04/26/22 08:59 Last Admin: 04/07/22 08:19 Dose: 25 mg Documented by:
--- NOTE | 2022-04-07 10:46 | Pulmonology Progress Note ---
Date of Service April 07, 2022 Assessment & Plan (1) Acute respiratory failure with hypoxia and hypercarbia: Plan: 76 yo female with past medical history of COPD (three weeks ago she was started on 1 liter oxygen at all times), hypothyroidism; hyperlipidemia, hypertension, bronchitis, depression, prediabetic, and CAD s/p stent presented with lethargy and worsening SOB. #Acute respiratory failure with hypoxia and hypercarbia -Likely secondary to acute on chronic COPD exacerbation with superimposed chronic emphysema -Small pleural effusion noted which is not amenable to thoracentesis. Recommend maintaining a negative fluid balance. -Wean oxygen as tolerated with saturation goal of 88-92%. -Continue Brovana and Pulmicort. -Aggressive pulmonary toilet. Discussed consistent use of flutter valve and incentive spirometer. -Continue BiPAP today at all times when sleeping. Due to chronic hypercapnic respiratory failure consequent to COPD, the patient now requires a noninvasive home ventilator. Bilevel therapy with and without a rate would be ineffective as patient requires a volume targeted mode. Ventilation is required to decrease work of breathing and improve pulmonary status. Interruption of ventilator support would lead to decline of health status. NIMV settings should be AVAPS-AE; Breath rate: auto; Inspiratory time: auto; Sigh: off; Tidal Volume: [350-450], PS min: [4-10 PS max: 12-20]; EPAP min: [6- 10]; EPAP max: [10-16]; AVAPS rate: [14 during sleep and as needed] #Pulmonary Nodule -1.5 cm pulmonary nodule within left lower lobe seen on CT imaging during his hospital stay. -Size and morphology of nodule concerning for primary lung cancer. Recommend PET/CT as an outpatient. Nodule not amenable to bronchoscopic biopsy given its location. It would be amenable to CT-guided biopsy. #Pulmonary embolism -Possibly hypercoagulable given the concern for lung cancer. Would recommend at least 6-months of anticoagulation. Thank you for allowing us to participate in the care of this patient. Please call with questions. Pulmonary will sign off at this time. (2) Pulmonary embolism: Acute cor pulmonale presence: unspecified Chronicity: acute Pulmonary embolism type: unspecified Qualified Code(s): I26.99 - Other pulmonary embolism without acute cor pulmonale (3) Pulmonary nodule: (4) COPD (chronic obstructive pulmonary disease) with emphysema: Admission and Anticipated Discharge Date Admission Date: March 26, 2022 Subjective No acute events overnight. Patient tolerated BiPAP last night. Symptoms stable. Continues with cough that is mostly dry. Review of Systems Review of Systems: All systems reviewed & are unremarkable except as noted in HPI & below Physical Exam Physical Exam: Constitutional: Frail appearing female lying in bed. No apparent distress. Eyes: Pupils are equal round and reactive to light. Conjunctivae are normal. Anicteric sclera. Ears nose, mouth and throat: Mallampati class 2. Normal posterior oropharynx. Uvula is midline. Neck: Trachea is midline. Visual inspection is normal. Respiratory: Prolonged phase of exhalation. No wheezes. Cardiovascular: Regular rate and rhythm. No murmurs. No edema. Gastrointestinal: Normal bowel sounds, soft, nontender and nondistended. No hepatosplenomegaly noted. Musculoskeletal: No cyanosis. Patient is able to move all extremities. Skin: No rashes, warm dry and intact. Neurologic: No obvious focal neurological deficits seen. Psychiatric: Alert and oriented x3 with a euthymic affect. Results & Data Results & Data ([facility]) Vital Signs (Past 12 Hours) Vital Signs Temp Pulse Pulse Resp BP Pulse Ox 04/07/22 08:18 36.6 C 58 L 20 129/78 90 04/07/22 08:00 58 L 04/07/22 07:23 66 16 90 04/07/22 03:26 37.0 C 58 L 18 119/67 94 04/07/22 02:01 19 91 04/06/22 23:49 59 L PG Care Time/CCT Total # of Minutes Spent Total Time Spent with Patient: Total time spent is greater than 50% in coordination of care (as documented) at patient's floor/unit and/or counseling patient: Coding Level of Care Code 79204 Subseq Hosp Care Lvl 2 Diagnoses Acute respiratory failure with hypoxia and hypercarbia J96.01; J96.02 Pulmonary embolism I26.99 Acute cor pulmonale presence: unspecified Chronicity: acute Pulmonary embolism type: unspecified Pulmonary nodule R91.1 COPD (chronic obstructive pulmonary disease) with emphysema J43.9
[2022-04-07] MEDS: ROSUVASTATIN CALCIUM 20 MG TAB PO SCH (19:47)
[2022-04-08] MEDS: LEVOTHYROXINE SODIUM 50 MCG TABLET PO SCH (05:47)
[2022-04-08] MEDS: BUDESONIDE 0.5 MG/2 ML VIAL (PULMICORT) NEB SCH ×2 (07:14→19:26)
[2022-04-08] MEDS: FORMOTEROL 20 MCG/2 ML VIAL INH SCH ×2 (07:14→19:26)
[2022-04-08] MEDS: INSULIN ASPART PER UNIT SC SCH ×4 (08:15→20:32)
[2022-04-08 08:22] LABS: BUN Creatinine Ratio 29.2 (10-20); Calcium 8.8 mg/dl (8.5-10.1); Creatinine Clr Calc Pharmacy 102.9 ml/min; Est GFR (Non-African American) 96.6 ml/min; Magnesium 1.7 mg/dl (1.7-2.4); Potassium 3.8 mmol/L (3.5-5.1)
[2022-04-08] MEDS: APIXABAN 5 MG TABLET PO SCH ×2 (08:33→21:44)
[2022-04-08] MEDS: LORATADINE 10 MG TAB PO SCH (08:34)
[2022-04-08] MEDS: ATENOLOL 25 MG TABLET PO SCH (08:34)
[2022-04-08] MEDS: SERTRALINE HCL 50 MG TABLET PO SCH (08:34)
[2022-04-08] MEDS: MULTI VIT W/MINERALS LIQUID 15 ML UDP PO SCH (08:34)
[2022-04-08] MEDS: amLODIPine BESYLATE 5 MG TAB PO SCH (08:34)
[2022-04-08] MEDS: guaiFENesin 600 MG TABCR PO SCH ×2 (08:34→21:44)
[2022-04-08] MEDS: MAGNESIUM OXIDE 400 MG TAB PO SCH (08:35)
[2022-04-08] MEDS ORDERED: MAGNESIUM SULFATE / D5W 1 GM/100 ML BAG IV ONE (14:38)
--- NOTE | 2022-04-08 14:39 | Hospitalist Progress Note ---
Date of Service April 08, 2022 Assessment & Plan (1) Acute respiratory failure with hypoxia and hypercarbia: Plan: Present on admission with worsening SOB and lethargy Possible related to COPD exacebation ABG on admission with pH 7.31/ pCO2 85/ PHCO3 43 Pt was intubated on vent support on admission Extubated on 03/27 CTA chest showed small segmental and subsegmental right-sided pulmonary emboli. Severe emphysema with bronchitis. Tracheobronchial secretions with bibasilar mucous plugging. CXR showed Interval development of small to moderate-sized left pleural effusion with left lower lobe atelectasis/collapse. There is also evidence for small right pleural effusion and right basilar atelectasis. received IV Zosyn, Vanco and doxycycline and solumedrol in the in the ER Sputum cx showed Moraxella catarrhalis IV Levaquin changed to Augmentin IV steroid was discontinued by the biblical studies professor Continued Augmentin until 04/03 Lasix 40mg IV given (04/03) Added mucinex, flatter valve, cont. IS Pt was on oxygen at home prior coming to [facility] - not clear how much she used (seems on and off O2) Will need to get 2 step on discharge 04/04 -patient cont. to require 5 to 6 L of oxygen. Repeat chest x-ray now. Pulmonology consulted. Per pulmonary medicine Aggressive pulmonary toilet. Discussed consistent use of flutter valve and incentive spirometer. Wean oxygen as tolerated with saturation goal of 88-92%. Transition to Brovana and Pulmicort due to poor inspiratory capacity. Recommend BiPAP at night. Strongly encouraged good compliance with BiPAP given her evidence of acute on chronic hypercapnic respiratory failure. Would likely also benefit from NIV upon discharge Due to chronic hypercapnic respiratory failure consequent to COPD, the patient now requires a noninvasive home ventilator. Bilevel therapy with and without a rate would be ineffective as patient requires a volume targeted mode. Ventilation is required to decrease work of breathing and improve pulmonary status. Interruption of ventilator support would lead to decline of health st atus. NIMV settings should be AVAPS-AE; Breath rate: auto; Inspiratory time: auto; Sigh: off; Tidal Volume: [350-450], PS min: [4-10 PS max: 12-20]; EPAP min: [6- 10]; EPAP max: [10-16]; AVAPS rate: [14 during sleep and as needed] Pulmonary Nodule -1.5 cm pulmonary nodule within left lower lobe seen on CT imaging during his hospital stay. -Size and morphology of nodule concerning for primary lung cancer. Recommend PET/CT as an outpatient. Nodule not amenable to bronchoscopic biopsy given its location. It would be amenable to CT-guided biopsy. Pt not interested in work-up at this time. #Pulmonary embolism -Possibly hypercoagulable given the concern for lung cancer. Would recommend at least 6-months of anticoagulation. Pulmonary embolism. CTA chest showed small segmental and subsegmental right-sided pulmonary emboli. Doppler of LE showed no DVT She was starting on IV heparin drip, then transition lovenox 80mg BID Lovenox discontinued and transitioned to Eliquis Continue Eliquis BID Elevated troponin Mostly due to demand ischemia from hypoxia Initial troponin 150.9 then peak to 157, now trending down to 118 Echo showed no segmental LV wall motion abnormalities denies any chest pain Pt was on IV heparin drip for the PE, then transition to Lovenox, now on Eliquis continue atenolol and statin Clinically stable Lower extremity edema Doppler of LE showed no evidence of DVT Lasix IV given Swelling improved significantly Stable Weakness PT/OT recommended SNF for inpatient therapy Spoke to family and would like pt to get PT/OT done outpatient Pt plans to return back to [place] Continue PT/OT Fall precaution CAD status post stent Continue her beta tristan and statin Hypothyroidism Continue Synthroid. Hypertension: Continue amlodipine and atenolol. Hyperlipidemia Continue statin. Depression Continue On Zoloft. DVT prophylaxis on Eliquis BID Code status Full code Disposition PT/OT recommended inpatient rehab Plan to transfer to rehab once medical stable / DC and travel to [place] Admission and Anticipated Discharge Date Admission Date: March 26, 2022 Subjective Pt was seen in follow up of shortness of breath, hypoxia, likely 2/2 COPD exacerbation Extubated on 03/27 Sitting up in bed in NAD Used BiPAP overnight continues to require suppl. O2 Denies any chest pain, palpitation, dizziness, increased shortness of breath, or cough Overall however she says that she feels better Review of Systems Review of Systems: All systems reviewed & are unremarkable except as noted in Subjective Physical Exam Physical Exam: General- No acute distress Head- atraumatic Eyes- PERRL, EOMI, ENT- oropharynx clear Neck- supple, no JVD Lungs- diminished BS, prolonged exp. phase, on NC Heart- regular rhythm; no murmur Abdomen- normal bowel sounds, soft, nontender Extremities- no calf tenderness, no edema Neuro- alert, oriented x 3; PERRL, EOMI; no facial palsy; no dysarthria Skin- warm & dry Results & Data Results & Data ([facility]) Vital Signs (Past 12 Hours) Vital Signs Temp Pulse Pulse Pulse Resp BP BP 04/08/22 11:37 36.6 C 68 20 112/66 04/08/22 08:00 71 04/08/22 07:15 60 18 04/08/22 07:00 37.1 C 62 18 129/65 04/08/22 03:40 36.3 C L 56 L 16 160/90 H 04/08/22 03:22 55 L 17 Pulse Ox 04/08/22 11:37 90 04/08/22 08:00 04/08/22 07:15 95 04/08/22 07:00 96 04/08/22 03:40 90 04/08/22 03:22 90 Laboratory Results 04/08/22 04/08/22 04/08/22 Range/Units 11:27 07:35 07:18 Sodium 131 L (136-145) mmol/L Potassium 3.8 (3.5-5.1) mmol/L Chloride 90 L (98-107) mmol/L Carbon Dioxide 35 H (21-32) mmol/L Anion Gap 6 (3-11) BUN 14 (6-23) mg/dl Creatinine 0.48 L (0.6-1.2) mg/dl Est Cr Clr Drug Dosing 102.9 ml/min Est GFR ( Amer) 112.0 ml/min Est GFR (Non-Af Amer) 96.6 ml/min BUN/Creatinine Ratio 29.2 H (10-20) Glucose 104 H (70-99(Fasting)) mg/dl POC Glucose 130 H 117 H (70-99) mg/dl Calcium 8.8 (8.5-10.1) mg/dl Magnesium 1.7 (1.7-2.4) mg/dl 04/07/22 04/07/22 Range/Units 20:27 16:02 Sodium (136-145) mmol/L Potassium (3.5-5.1) mmol/L Chloride (98-107) mmol/L Carbon Dioxide (21-32) mmol/L Anion Gap (3-11) BUN (6-23) mg/dl Creatinine (0.6-1.2) mg/dl Est Cr Clr Drug Dosing ml/min Est GFR ( Amer) ml/min Est GFR (Non-Af Amer) ml/min BUN/Creatinine Ratio (10-20) Glucose (70-99(Fasting)) mg/dl POC Glucose 85 130 H (70-99) mg/dl Calcium (8.5-10.1) mg/dl Magnesium (1.7-2.4) mg/dl Medications Administered Current Inpatient Medications Albuterol (Albuterol Hfa 8 Gm Inhaler) 2 puffs INH Q4H PRN PRN Reason: Shortness Of Breath Stop: 04/25/22 23:20 Amlodipine Besylate (Amlodipine Besylate 5 Mg Tab) 5 mg PO DAILY [facility] Stop: 04/26/22 08:59 Last Admin: 04/08/22 08:34 Dose: 5 mg Documented by: Apixaban (Apixaban 5 Mg Tablet) 5 mg PO BID [facility] Stop: 05/04/22 20:59 Last Admin: 04/08/22 08:33 Dose: 5 mg Documented by: Atenolol (Atenolol 25 Mg Tablet) 25 mg PO DAILY [facility] Stop: 04/26/22 08:59 Last Admin: 04/08/22 08:34 Dose: 25 mg Documented by: Budesonide (Budesonide 0.5 Mg/2 Ml Vial (Pulmicort)) 0.5 mg NEB BIDR [facility] Stop: 05/06/22 18:59 Last Admin: 04/08/22 07:14 Dose: 0.5 mg Documented by: Dextrose (Dextrose 50% 50 Ml Syringe) 25 - 50 ml IV UD PRN; Protocol PRN Reason: Hypoglycemia Protocol Stop: 04/26/22 10:29 Formoterol Fumarate (Formoterol 20 Mcg/2 Ml Vial) 20 mcg INH BIDR [facility] Stop: 05/06/22 18:59 Last Admin: 04/08/22 07:14 Dose: 20 mcg Documented by: Glucagon (Glucagon For Inj 1 Mg Vial) 1 mg IM UD PRN; Protocol PRN Reason: Hypoglycemia Protocol Stop: 04/26/22 10:29 Glucose (Glucose 40% Gel 15 Gm Tube) 15 - 30 gm PO UD PRN; Protocol PRN Reason: Hypoglycemia Protocol Stop: 04/26/22 10:29 Glucose (Glucose 10 Tabs/Tube) 4 - 8 tabs PO UD PRN; Protocol PRN Reason: Hypoglycemia Protocol Stop: 04/26/22 10:29 Guaifenesin (Guaifenesin 600 Mg Tabcr) 600 mg PO Q12 [facility] Stop: 05/04/22 08:59 Last Admin: 04/08/22 08:34 Dose: 600 mg Documented by: Insulin Aspart (Insulin Aspart Per Unit) 0 units SC ACHS [facility] Stop: 04/26/22 11:29 Last Admin: 04/08/22 12:37 Dose: 3 units Documented by: Ipratropium [place] (Ipratropium [place] Neb Soln 0.02% 2.5 Ml Vial) 0.5 mg INH Q4H PRN PRN Reason: SOB/wheezing Stop: 04/30/22 21:29 Levalbuterol HCl (Levalbuterol 1.25mg/0.5ml Neb) 1.25 mg INH Q4H PRN PRN Reason: SOB/wheezing Stop: 04/30/22 21:29 Levothyroxine Sodium (Levothyroxine Sodium 50 Mcg Tablet) 50 mcg PO DAILYBB [facility] Stop: 04/26/22 06:29 Last Admin: 04/08/22 05:47 Dose: 50 mcg Documented by: Loratadine (Loratadine 10 Mg Tab) 10 mg PO DAILY [facility] Stop: 04/26/22 08:59 Last Admin: 04/08/22 08:34 Dose: 10 mg Documented by: Magnesium Oxide (Magnesium Oxide 400 Mg Tab) 400 mg PO QAM [facility] Stop: 05/07/22 08:59 Last Admin: 04/08/22 08:35 Dose: 400 mg Documented by: Miscellaneous (Carbohydrates For Hypoglycemia ) 15 - 30 gm PO UD PRN PRN Reason: Hypoglycemia Treatment Stop: 04/26/22 10:29 Multivitamins/Minerals (Multi Vit W/Minerals Liquid 15 Ml Udp) 15 ml PO DAILY [facility]DLKAD[facility] Stop: 04/26/22 08:59 Last Admin: 04/08/22 08:34 Dose: 15 ml Documented by: Nitroglycerin (Nitroglycerin Sl 0.4 Mg/Tab Tab) 0.4 mg SL Q5M PRN PRN Reason: Chest Pain Stop: 04/25/22 23:20 Rosuvastatin Calcium (Rosuvastatin Calcium 20 Mg Tab) 20 mg PO QPM [facility] Stop: 04/26/22 20:59 Last Admin: 04/07/22 19:47 Dose: 20 mg Documented by: Sertraline HCl (Sertraline Hcl 50 Mg Tablet) 25 mg PO DAILY [facility]KAD[facility] Stop: 04/26/22 08:59 Last Admin: 04/08/22 08:34 Dose: 25 mg Documented by:
[2022-04-08] MEDS: ROSUVASTATIN CALCIUM 20 MG TAB PO SCH (21:44)
[2022-04-09] MEDS: LEVOTHYROXINE SODIUM 50 MCG TABLET PO SCH (06:28)
[2022-04-09] MEDS: BUDESONIDE 0.5 MG/2 ML VIAL (PULMICORT) NEB SCH ×2 (07:06→19:16)
[2022-04-09] MEDS: FORMOTEROL 20 MCG/2 ML VIAL INH SCH ×2 (07:06→19:16)
[2022-04-09] MEDS: SERTRALINE HCL 50 MG TABLET PO SCH (08:20)
[2022-04-09] MEDS: ATENOLOL 25 MG TABLET PO SCH (08:20)
[2022-04-09] MEDS: MAGNESIUM OXIDE 400 MG TAB PO SCH (08:20)
[2022-04-09] MEDS: amLODIPine BESYLATE 5 MG TAB PO SCH (08:21)
[2022-04-09] MEDS: guaiFENesin 600 MG TABCR PO SCH ×2 (08:21→20:01)
[2022-04-09] MEDS: APIXABAN 5 MG TABLET PO SCH ×2 (08:21→20:00)
[2022-04-09] MEDS: LORATADINE 10 MG TAB PO SCH (08:21)
[2022-04-09] MEDS: MULTI VIT W/MINERALS LIQUID 15 ML UDP PO SCH (08:22)
[2022-04-09] MEDS: INSULIN ASPART PER UNIT SC SCH ×4 (08:23→20:00)
--- NOTE | 2022-04-09 14:12 | Hospitalist Progress Note ---
Date of Service April 09, 2022 Assessment & Plan (1) Acute respiratory failure with hypoxia and hypercarbia: Plan: Present on admission with worsening SOB and lethargy Possible related to COPD exacebation ABG on admission with pH 7.31/ pCO2 85/ PHCO3 43 Pt was intubated on vent support on admission Extubated on 03/27 CTA chest showed small segmental and subsegmental right-sided pulmonary emboli. Severe emphysema with bronchitis. Tracheobronchial secretions with bibasilar mucous plugging. CXR showed Interval development of small to moderate-sized left pleural effusion with left lower lobe atelectasis/collapse. There is also evidence for small right pleural effusion and right basilar atelectasis. received IV Zosyn, Vanco and doxycycline and solumedrol in the in the ER Sputum cx showed Moraxella catarrhalis IV Levaquin changed to Augmentin IV steroid was discontinued by the software administrator Continued Augmentin until 04/03 Lasix 40mg IV given (04/03) Added mucinex, flatter valve, cont. IS Pt was on oxygen at home prior coming to [facility] - not clear how much she used (seems on and off O2) Will need to get 2 step on discharge 04/04 -patient cont. to require 5 to 6 L of oxygen. Repeat chest x-ray now. Pulmonology consulted. Per pulmonary medicine Aggressive pulmonary toilet. Discussed consistent use of flutter valve and incentive spirometer. Wean oxygen as tolerated with saturation goal of 88-92%. Transition to Brovana and Pulmicort due to poor inspiratory capacity. Recommend BiPAP at night. Strongly encouraged good compliance with BiPAP given her evidence of acute on chronic hypercapnic respiratory failure. Would likely also benefit from NIV upon discharge Due to chronic hypercapnic respiratory failure consequent to COPD, the patient now requires a noninvasive home ventilator. Bilevel therapy with and without a rate would be ineffective as patient requires a volume targeted mode. Ventilation is required to decrease work of breathing and improve pulmonary status. Interruption of ventilator support would lead to decline of health st atus. NIMV settings should be AVAPS-AE; Breath rate: auto; Inspiratory time: auto; Sigh: off; Tidal Volume: [350-450], PS min: [4-10 PS max: 12-20]; EPAP min: [6- 10]; EPAP max: [10-16]; AVAPS rate: [14 during sleep and as needed] Pulmonary Nodule -1.5 cm pulmonary nodule within left lower lobe seen on CT imaging during his hospital stay. -Size and morphology of nodule concerning for primary lung cancer. Recommend PET/CT as an outpatient. Nodule not amenable to bronchoscopic biopsy given its location. It would be amenable to CT-guided biopsy. Pt not interested in work-up at this time. #Pulmonary embolism -Possibly hypercoagulable given the concern for lung cancer. Would recommend at least 6-months of anticoagulation. Pulmonary embolism. CTA chest showed small segmental and subsegmental right-sided pulmonary emboli. Doppler of LE showed no DVT She was starting on IV heparin drip, then transition lovenox 80mg BID Lovenox discontinued and transitioned to Eliquis Continue Eliquis BID Elevated troponin Mostly due to demand ischemia from hypoxia Initial troponin 150.9 then peak to 157, now trending down to 118 Echo showed no segmental LV wall motion abnormalities denies any chest pain Pt was on IV heparin drip for the PE, then transition to Lovenox, now on Eliquis continue atenolol and statin Clinically stable Lower extremity edema Doppler of LE showed no evidence of DVT Lasix IV given Swelling improved significantly Stable Weakness PT/OT recommended SNF for inpatient therapy Spoke to family and would like pt to get PT/OT done outpatient Pt plans to return back to [place] Continue PT/OT Fall precaution CAD status post stent Continue her beta tristan and statin Hypothyroidism Continue Synthroid. Hypertension: Continue amlodipine and atenolol. Hyperlipidemia Continue statin. Depression Continue On Zoloft. DVT prophylaxis on Eliquis BID Code status Full code Disposition PT/OT recommended inpatient rehab Plan to transfer to rehab once medical stable / or DC and travel to [place] depending on clinical progress Admission and Anticipated Discharge Date Admission Date: March 26, 2022 Subjective Pt was seen in follow up of shortness of breath, hypoxia, likely 2/2 COPD exacerbation Extubated on 03/27 Sitting up in bed in NAD Used BiPAP overnight continues to require suppl. O2 , on NC using 6L Denies any chest pain, palpitation, dizziness, increased shortness of breath, or cough Overall however she says that she feels better Review of Systems Review of Systems: All systems reviewed & are unremarkable except as noted in Subjective Physical Exam Physical Exam: General- No acute distress Head- atraumatic Eyes- PERRL, EOMI, ENT- oropharynx clear Neck- supple, no JVD Lungs- diminished BS, prolonged exp. phase, on NC Heart- regular rhythm; no murmur Abdomen- normal bowel sounds, soft, nontender Extremities- no calf tenderness, no edema Neuro- alert, oriented x 3; PERRL, EOMI; no facial palsy; no dysarthria Skin- warm & dry Results & Data Results & Data ([facility]) Vital Signs (Past 12 Hours) Vital Signs Temp Pulse Pulse Resp BP Pulse Ox 04/09/22 11:21 92 04/09/22 11:16 36.7 C 73 18 115/74 88 L 04/09/22 07:26 36.6 C 70 20 144/72 H 91 04/09/22 07:09 67 18 90 04/09/22 07:00 69 04/09/22 05:40 68 04/09/22 05:33 36.6 C 71 18 159/76 H 89 L 04/09/22 03:00 36.5 C 58 L 13 135/85 98 04/09/22 02:58 60 13 90 Laboratory Results 04/09/22 04/09/22 04/08/22 Range/Units 11:41 07:49 20:26 POC Glucose 113 H 130 H 106 H (70-99) mg/dl 04/08/22 Range/Units 16:36 POC Glucose 107 H (70-99) mg/dl Medications Administered Current Inpatient Medications Albuterol (Albuterol Hfa 8 Gm Inhaler) 2 puffs INH Q4H PRN PRN Reason: Shortness Of Breath Stop: 04/25/22 23:20 Amlodipine Besylate (Amlodipine Besylate 5 Mg Tab) 5 mg PO DAILY [facility] Stop: 04/26/22 08:59 Last Admin: 04/09/22 08:21 Dose: 5 mg Documented by: Apixaban (Apixaban 5 Mg Tablet) 5 mg PO BID [facility] Stop: 05/04/22 20:59 Last Admin: 04/09/22 08:21 Dose: 5 mg Documented by: Atenolol (Atenolol 25 Mg Tablet) 25 mg PO DAILY [facility]ULKADIR Stop: 04/26/22 08:59 Last Admin: 04/09/22 08:20 Dose: 25 mg Documented by: Budesonide (Budesonide 0.5 Mg/2 Ml Vial (Pulmicort)) 0.5 mg NEB BIDR [facility] Stop: 05/06/22 18:59 Last Admin: 04/09/22 07:06 Dose: 0.5 mg Documented by: Dextrose (Dextrose 50% 50 Ml Syringe) 25 - 50 ml IV UD PRN; Protocol PRN Reason: Hypoglycemia Protocol Stop: 04/26/22 10:29 Formoterol Fumarate (Formoterol 20 Mcg/2 Ml Vial) 20 mcg INH BIDR [facility] Stop: 05/06/22 18:59 Last Admin: 04/09/22 07:06 Dose: 20 mcg Documented by: Glucagon (Glucagon For Inj 1 Mg Vial) 1 mg IM UD PRN; Protocol PRN Reason: Hypoglycemia Protocol Stop: 04/26/22 10:29 Glucose (Glucose 40% Gel 15 Gm Tube) 15 - 30 gm PO UD PRN; Protocol PRN Reason: Hypoglycemia Protocol Stop: 04/26/22 10:29 Glucose (Glucose 10 Tabs/Tube) 4 - 8 tabs PO UD PRN; Protocol PRN Reason: Hypoglycemia Protocol Stop: 04/26/22 10:29 Guaifenesin (Guaifenesin 600 Mg Tabcr) 600 mg PO Q12 [facility]KAD[facility] Stop: 05/04/22 08:59 Last Admin: 04/09/22 08:21 Dose: 600 mg Documented by: Insulin Aspart (Insulin Aspart Per Unit) 0 units SC ACHS [facility] Stop: 04/26/22 11:29 Last Admin: 04/09/22 13:00 Dose: Not Given Documented by: Ipratropium [place] (Ipratropium [place] Neb Soln 0.02% 2.5 Ml Vial) 0.5 mg INH Q4H PRN PRN Reason: SOB/wheezing Stop: 04/30/22 21:29 Levalbuterol HCl (Levalbuterol 1.25mg/0.5ml Neb) 1.25 mg INH Q4H PRN PRN Reason: SOB/wheezing Stop: 04/30/22 21:29 Levothyroxine Sodium (Levothyroxine Sodium 50 Mcg Tablet) 50 mcg PO DAILYBB [facility] Stop: 04/26/22 06:29 Last Admin: 04/09/22 06:28 Dose: 50 mcg Documented by: Loratadine (Loratadine 10 Mg Tab) 10 mg PO DAILY [facility]KAD[facility] Stop: 04/26/22 08:59 Last Admin: 04/09/22 08:21 Dose: 10 mg Documented by: Magnesium Oxide (Magnesium Oxide 400 Mg Tab) 400 mg PO QAM [facility] Stop: 05/07/22 08:59 Last Admin: 04/09/22 08:20 Dose: 400 mg Documented by: Miscellaneous (Carbohydrates For Hypoglycemia ) 15 - 30 gm PO UD PRN PRN Reason: Hypoglycemia Treatment Stop: 04/26/22 10:29 Multivitamins/Minerals (Multi Vit W/Minerals Liquid 15 Ml Udp) 15 ml PO DAILY [facility]KAD[facility] Stop: 04/26/22 08:59 Last Admin: 04/09/22 08:22 Dose: 15 ml Documented by: Nitroglycerin (Nitroglycerin Sl 0.4 Mg/Tab Tab) 0.4 mg SL Q5M PRN PRN Reason: Chest Pain Stop: 04/25/22 23:20 Rosuvastatin Calcium (Rosuvastatin Calcium 20 Mg Tab) 20 mg PO QPM [facility]KAD[facility] Stop: 04/26/22 20:59 Last Admin: 04/08/22 21:44 Dose: 20 mg Documented by: Sertraline HCl (Sertraline Hcl 50 Mg Tablet) 25 mg PO DAILY [facility]BDULKADIR Stop: 04/26/22 08:59 Last Admin: 04/09/22 08:20 Dose: 25 mg Documented by:
[2022-04-09] MEDS: ROSUVASTATIN CALCIUM 20 MG TAB PO SCH (20:00)
[2022-04-10] MEDS: LEVOTHYROXINE SODIUM 50 MCG TABLET PO SCH (05:38)
[2022-04-10 06:12] LABS: Hematocrit (blood only) 40.7 % (37-47); Hemoglobin 13.3 g/dL (12.0-16.0); Mean Corpuscular Hgb Conc 32.7 g/dL (32-36); Mean Corpuscular Volume 91.9 fL (80-100); Mean Platelet Volume 9.4 fL (7.4-10.4); Platelet Count 238 K/uL (130-400); RDW Coefficient of Variation 14.2 % (11.5-14.5); Red Blood Count 4.43 M/uL (4.2-5.4); White Blood Count 6.48 K/uL (4.8-10.8)
[2022-04-10 06:38] LABS: BUN Creatinine Ratio 23.6 (10-20); Calcium 8.8 mg/dl (8.5-10.1); Est GFR (African American) 107.1 ml/min; Est GFR (Non-African American) 92.4 ml/min; Magnesium 1.8 mg/dl (1.7-2.4); Phosphorus 3.9 mg/dl (2.5-4.9); Potassium 4.1 mmol/L (3.5-5.1)
[2022-04-10] MEDS: FORMOTEROL 20 MCG/2 ML VIAL INH SCH ×2 (07:08→20:16)
[2022-04-10] MEDS: BUDESONIDE 0.5 MG/2 ML VIAL (PULMICORT) NEB SCH ×2 (07:08→20:16)
[2022-04-10] MEDS: MAGNESIUM OXIDE 400 MG TAB PO SCH (10:48)
[2022-04-10] MEDS: ATENOLOL 25 MG TABLET PO SCH (10:48)
[2022-04-10] MEDS: guaiFENesin 600 MG TABCR PO SCH ×2 (10:49→20:21)
[2022-04-10] MEDS: MULTI VIT W/MINERALS LIQUID 15 ML UDP PO SCH (10:49)
[2022-04-10] MEDS: INSULIN ASPART PER UNIT SC SCH ×4 (10:49→21:00)
[2022-04-10] MEDS: amLODIPine BESYLATE 5 MG TAB PO SCH (10:49)
[2022-04-10] MEDS: APIXABAN 5 MG TABLET PO SCH ×2 (10:49→20:21)
[2022-04-10] MEDS: SERTRALINE HCL 50 MG TABLET PO SCH (10:49)
[2022-04-10] MEDS: LORATADINE 10 MG TAB PO SCH (10:49)
--- NOTE | 2022-04-10 17:02 | Hospitalist Progress Note ---
Date of Service April 10, 2022 Assessment & Plan (1) Acute respiratory failure with hypoxia and hypercarbia: Plan: Present on admission with worsening SOB and lethargy Possible related to COPD exacebation ABG on admission with pH 7.31/ pCO2 85/ PHCO3 43 Pt was intubated on vent support on admission Extubated on 03/27 CTA chest showed small segmental and subsegmental right-sided pulmonary emboli. Severe emphysema with bronchitis. Tracheobronchial secretions with bibasilar mucous plugging. CXR showed Interval development of small to moderate-sized left pleural effusion with left lower lobe atelectasis/collapse. There is also evidence for small right pleural effusion and right basilar atelectasis. received IV Zosyn, Vanco and doxycycline and solumedrol in the in the ER Sputum cx showed Moraxella catarrhalis IV Levaquin changed to Augmentin IV steroid was discontinued by the casing man Continued Augmentin until 04/03 Lasix 40mg IV given (04/03) Continue mucinex, flatter valve, cont. IS Pt was on oxygen at home prior coming to [facility] - not clear how much she used (seems on and off O2) Will need to get 2 step on discharge Pulm on board Per pulmonary medicine Aggressive pulmonary toilet. Discussed consistent use of flutter valve and incentive spirometer. Wean oxygen as tolerated with saturation goal of 88-92%. Transition to Brovana and Pulmicort due to poor inspiratory capacity. Recommend BiPAP at night. Strongly encouraged good compliance with BiPAP given her evidence of acute on chronic hypercapnic respiratory failure. Would likely also benefit from NIV upon discharge Due to chronic hypercapnic respiratory failure consequent to COPD, the patient now requires a noninvasive home ventilator. Bilevel therapy with and without a rate would be ineffective as patient requires a volume targeted mode. Ventilation is required to decrease work of breathing and improve pulmonary status. Interruption of ventilator support would lead to decline of health status. NIMV settings should be AVAPS-AE; Breath rate: auto; Inspiratory time: auto; Sigh: off; Tidal Volume: [350-450], PS min: [4-10 PS max: 12-20]; EPAP min: [6- 10]; EPAP max: [10-16]; AVAPS rate: [14 during sleep and as needed] Waiting for trilogy Pulmonary Nodule -1.5 cm pulmonary nodule within left lower lobe seen on CT imaging during his hospital stay. -Size and morphology of nodule concerning for primary lung cancer. Recommend PET/CT as an outpatient. Nodule not amenable to bronchoscopic biopsy given its location. It would be amenable to CT-guided biopsy. Pt not interested in work-up at this time. #Pulmonary embolism -Possibly hypercoagulable given the concern for lung cancer. Would recommend at least 6-months of anticoagulation. Pulmonary embolism. CTA chest showed small segmental and subsegmental right-sided pulmonary emboli. Doppler of LE showed no DVT She was starting on IV heparin drip, then transition lovenox 80mg BID Lovenox discontinued and transitioned to Eliquis Continue Eliquis BID Elevated troponin Mostly due to demand ischemia from hypoxia Initial troponin 150.9 then peak to 157, now trending down to 118 Echo showed no segmental LV wall motion abnormalities denies any chest pain Pt was on IV heparin drip for the PE, then transition to Lovenox, now on Eliquis continue atenolol and statin Clinically stable Lower extremity edema Doppler of LE showed no evidence of DVT Lasix IV given Swelling improved significantly Stable Weakness PT/OT recommended SNF for inpatient therapy Spoke to family and would like pt to get PT/OT done outpatient Pt plans to return back to [place] Continue PT/OT Fall precaution CAD status post stent Continue her beta tristan and statin Hypothyroidism Continue Synthroid. Hypertension: Continue amlodipine and atenolol. Hyperlipidemia Continue statin. Depression Continue On Zoloft. DVT prophylaxis on Eliquis BID Code status Full code Disposition PT/OT recommended inpatient rehab Plan to transfer to rehab once medical stable / or DC and travel to [place] depending on clinical progress Admission and Anticipated Discharge Date Admission Date: March 26, 2022 Subjective Pt was seen and examined for follow up of shortness of breath, hypoxia Sitting in chair with no acute distress While I was present, she walked to the bathroom with no discomfort Her oxygen sat was in the 85's, but pt had no symptoms Even after few minutes later, the oxygen remained in the 85's and the pulse oximetry did not sense I checked her nails, they were long. Denies any chest pain, palpitation, dizziness, fever, SOB Review of Systems Review of Systems: All systems reviewed & are unremarkable except as noted in Subjective Physical Exam Physical Exam: General- No acute distress Head- atraumatic Eyes- PERRL, EOMI, ENT- oropharynx clear Neck- supple, no JVD Lungs- diminished BS Heart- regular rhythm; no murmur Abdomen- normal bowel sounds, soft, nontender Extremities- no calf tenderness, no edema Neuro- alert, oriented x 3; PERRL, EOMI; no facial palsy; no dysarthria Skin- warm & dry Results & Data Results & Data ([facility]) Vital Signs (Past 12 Hours) Vital Signs Temp Pulse Pulse Resp BP BP Pulse Ox 04/10/22 16:00 36.9 C 62 61 20 125/72 93 04/10/22 11:00 36.9 C 67 18 124/80 91 04/10/22 08:18 36.5 C 77 22 148/78 H 04/10/22 07:09 72 18 90 04/10/22 07:00 72
[2022-04-10] MEDS: ROSUVASTATIN CALCIUM 20 MG TAB PO SCH (20:21)
[2022-04-11] MEDS: LEVOTHYROXINE SODIUM 50 MCG TABLET PO SCH (05:41)
[2022-04-11] MEDS: BUDESONIDE 0.5 MG/2 ML VIAL (PULMICORT) NEB SCH ×2 (07:14→19:57)
[2022-04-11] MEDS: FORMOTEROL 20 MCG/2 ML VIAL INH SCH ×2 (07:14→19:57)
[2022-04-11] MEDS: INSULIN ASPART PER UNIT SC SCH ×4 (08:36→21:07)
[2022-04-11] MEDS: MULTI VIT W/MINERALS LIQUID 15 ML UDP PO SCH (08:43)
[2022-04-11] MEDS: APIXABAN 5 MG TABLET PO SCH ×2 (08:44→21:07)
[2022-04-11] MEDS: MAGNESIUM OXIDE 400 MG TAB PO SCH (08:44)
[2022-04-11] MEDS: guaiFENesin 600 MG TABCR PO SCH ×2 (08:44→21:07)
[2022-04-11] MEDS: ATENOLOL 25 MG TABLET PO SCH (08:44)
[2022-04-11] MEDS: SERTRALINE HCL 50 MG TABLET PO SCH (08:44)
[2022-04-11] MEDS: LORATADINE 10 MG TAB PO SCH (08:44)
[2022-04-11] MEDS: amLODIPine BESYLATE 5 MG TAB PO SCH (08:44)
[2022-04-11] MEDS ORDERED: FUROSEMIDE INJ 20 MG/2 ML VIAL IV ONE (11:26)
[2022-04-11] MEDS: ROSUVASTATIN CALCIUM 20 MG TAB PO SCH (21:07)
--- NOTE | 2022-04-11 21:57 | Hospitalist Progress Note ---
Date of Service April 11, 2022 Assessment & Plan (1) Acute respiratory failure with hypoxia and hypercarbia: Plan: Present on admission with worsening SOB and lethargy Possible related to COPD exacebation ABG on admission with pH 7.31/ pCO2 85/ PHCO3 43 Pt was intubated on vent support on admission Extubated on 03/27 CTA chest showed small segmental and subsegmental right-sided pulmonary emboli. Severe emphysema with bronchitis. Tracheobronchial secretions with bibasilar mucous plugging. CXR showed Interval development of small to moderate-sized left pleural effusion with left lower lobe atelectasis/collapse. There is also evidence for small right pleural effusion and right basilar atelectasis. received IV Zosyn, Vanco and doxycycline and solumedrol in the in the ER Sputum cx showed Moraxella catarrhalis IV Levaquin changed to Augmentin IV steroid was discontinued by the endoscope technician Continued Augmentin until 04/03 Lasix 40mg IV given (04/03) Continue mucinex, flatter valve, cont. IS Pt was on oxygen at home prior coming to [facility] - not clear how much she used (seems on and off O2) Pulm on board Per pulmonary medicine Aggressive pulmonary toilet. Discussed consistent use of flutter valve and incentive spirometer. Wean oxygen as tolerated with saturation goal of 88-92%. Transition to Brovana and Pulmicort due to poor inspiratory capacity. Recommend BiPAP at night. Strongly encouraged good compliance with BiPAP given her evidence of acute on chronic hypercapnic respiratory failure. Would likely also benefit from NIV upon discharge Waiting for trilogy Currently on 3L NC and saturated well above 90% Will need to get 2 step on discharge Due to chronic hypercapnic respiratory failure consequent to COPD, the patient now requires a noninvasive home ventilator. Bilevel therapy with and without a rate would be ineffective as patient requires a volume targeted mode. Ventilation is required to decrease work of breathing and improve pulmonary status. Interruption of ventilator support would lead to decline of health status. NIMV settings should be AVAPS-AE; Breath rate: auto; Inspiratory time: auto; Sigh: off; Tidal Volume: [350-450], PS min: [4-10 PS max: 12-20]; EPAP min: [6- 10]; EPAP max: [10-16]; AVAPS rate: [14 during sleep and as needed] Pulmonary Nodule -1.5 cm pulmonary nodule within left lower lobe seen on CT imaging during his hospital stay. -Size and morphology of nodule concerning for primary lung cancer. Recommend PET/CT as an outpatient. Nodule not amenable to bronchoscopic biopsy given its location. It would be amenable to CT-guided biopsy. Pt not interested in work-up at this time. #Pulmonary embolism -Possibly hypercoagulable given the concern for lung cancer. Would recommend at least 6-months of anticoagulation. Pulmonary embolism. CTA chest showed small segmental and subsegmental right-sided pulmonary emboli. Doppler of LE showed no DVT She was starting on IV heparin drip, then transition lovenox 80mg BID Lovenox discontinued and transitioned to Eliquis Continue Eliquis BID Elevated troponin Mostly due to demand ischemia from hypoxia Initial troponin 150.9 then peak to 157, now trending down to 118 Echo showed no segmental LV wall motion abnormalities denies any chest pain Pt was on IV heparin drip for the PE, then transition to Lovenox, now on Eliquis continue atenolol and statin Clinically stable Lower extremity edema Doppler of LE showed no evidence of DVT Lasix IV given Swelling improved significantly Stable Weakness PT/OT recommended SNF for inpatient therapy Spoke to family and would like pt to get PT/OT done outpatient Pt plans to return back to [place] Continue PT/OT Fall precaution CAD status post stent Continue her beta tristan and statin Hypothyroidism Continue Synthroid. Hypertension: Continue amlodipine and atenolol. Hyperlipidemia Continue statin. Depression Continue On Zoloft. DVT prophylaxis on Eliquis BID Code status Full code Disposition PT/OT recommended inpatient rehab, pt not interested DC and travel to [place] depending on clinical progress Admission and Anticipated Discharge Date Admission Date: March 26, 2022 Subjective Pt was seen and examined for follow up of shortness of breath, hypoxia Sitting in chair with no acute distress Pt said that her breathing is much better Denies any chest pain, palpitation, dizziness, fever, SOB Review of Systems Review of Systems: All systems reviewed & are unremarkable except as noted in Subjective Physical Exam Physical Exam: General- No acute distress Head- atraumatic Eyes- PERRL, EOMI, ENT- oropharynx clear Neck- supple, no JVD Lungs- diminished BS Heart- regular rhythm; no murmur Abdomen- normal bowel sounds, soft, nontender Extremities- no calf tenderness, no edema Neuro- alert, oriented x 3; PERRL, EOMI; no facial palsy; no dysarthria Skin- warm & dry Results & Data Results & Data ([facility]) Vital Signs (Past 12 Hours) Vital Signs Temp Pulse Pulse Resp BP BP Pulse Ox 04/11/22 19:30 36.7 C 64 18 121/71 04/11/22 16:26 36.7 C 64 21 113/64 94 04/11/22 16:00 63 04/11/22 11:29 36.4 C L 63 20 104/66 92 04/11/22 10:41 97
[2022-04-12] MEDS: LEVOTHYROXINE SODIUM 50 MCG TABLET PO SCH (05:47)
[2022-04-12] MEDS: BUDESONIDE 0.5 MG/2 ML VIAL (PULMICORT) NEB SCH ×2 (07:24→19:30)
[2022-04-12] MEDS: FORMOTEROL 20 MCG/2 ML VIAL INH SCH ×2 (07:24→19:30)
[2022-04-12] MEDS: INSULIN ASPART PER UNIT SC SCH ×4 (08:28→20:29)
[2022-04-12] MEDS: APIXABAN 5 MG TABLET PO SCH ×2 (08:31→20:29)
[2022-04-12] MEDS: guaiFENesin 600 MG TABCR PO SCH ×2 (08:31→20:29)
[2022-04-12] MEDS: SERTRALINE HCL 50 MG TABLET PO SCH (08:31)
[2022-04-12] MEDS: ATENOLOL 25 MG TABLET PO SCH (08:32)
[2022-04-12] MEDS: MULTI VIT W/MINERALS LIQUID 15 ML UDP PO SCH (08:32)
[2022-04-12] MEDS: MAGNESIUM OXIDE 400 MG TAB PO SCH (08:32)
[2022-04-12] MEDS: amLODIPine BESYLATE 5 MG TAB PO SCH (08:32)
[2022-04-12] MEDS: LORATADINE 10 MG TAB PO SCH (08:32)
--- NOTE | 2022-04-12 16:00 | Hospitalist Progress Note ---
Date of Service April 12, 2022 Assessment & Plan (1) Acute respiratory failure with hypoxia and hypercarbia: Plan: Present on admission with worsening SOB and lethargy Possible related to COPD exacebation ABG on admission with pH 7.31/ pCO2 85/ PHCO3 43 Pt was intubated on vent support on admission Extubated on 03/27 CTA chest showed small segmental and subsegmental right-sided pulmonary emboli. Severe emphysema with bronchitis. Tracheobronchial secretions with bibasilar mucous plugging. CXR showed Interval development of small to moderate-sized left pleural effusion with left lower lobe atelectasis/collapse. There is also evidence for small right pleural effusion and right basilar atelectasis. received IV Zosyn, Vanco and doxycycline and solumedrol in the in the ER Sputum cx showed Moraxella catarrhalis IV Levaquin changed to Augmentin IV steroid was discontinued by the remote ruby on rails developer Continued Augmentin until 04/03 Lasix 40mg IV given (04/03) Continue mucinex, flatter valve, cont. IS Pt was on oxygen at home prior coming to [facility] - not clear how much she used (seems on and off O2) Pulm on board Per pulmonary medicine Aggressive pulmonary toilet. Discussed consistent use of flutter valve and incentive spirometer. Wean oxygen as tolerated with saturation goal of 88-92%. Transition to Brovana and Pulmicort due to poor inspiratory capacity. Recommend BiPAP at night. Strongly encouraged good compliance with BiPAP given her evidence of acute on chronic hypercapnic respiratory failure. Would likely also benefit from NIV upon discharge Currently on 3L NC and saturated well above 90% Will need to get 2 step on discharge Waiting for trilogy - Case management will submit for Patient has chronic respiratory failure secondary to COPD. Due to recent hospitalization bilevel/Rad device has been considered and ruled out due to patient need for volume assured ventilation; this requirement are not met with bilevel devices. Target tidal volume with adjustable pressure will help reduce PCO2 levels, increased oxygenation, help improve overall respiratory status and lower re-admission to the hospital. This patient also required continuous alarm, battery backup and portability which are not possible with bilevel/RAD device. Due to chronic hypercapnic respiratory failure consequent to COPD, the patient now requires a noninvasive home ventilator. Bilevel therapy with and without a rate would be ineffective as patient requires a volume targeted mode. Ventilation is required to decrease work of breathing and improve pulmonary status. Interruption of ventilator support would lead to decline of health status. NIMV settings should be AVAPS-AE; Breath rate: auto; Inspiratory time: auto; Sigh: off; Tidal Volume: [350-450], PS min: [4-10 PS max: 12-20]; EPAP min: [6- 10]; EPAP max: [10-16]; AVAPS rate: [14 during sleep and as needed] Pulmonary Nodule -1.5 cm pulmonary nodule within left lower lobe seen on CT imaging during his hospital stay. -Size and morphology of nodule concerning for primary lung cancer. Recommend PET/CT as an outpatient. Nodule not amenable to bronchoscopic biopsy given its location. It would be amenable to CT-guided biopsy. Pt not interested in work-up at this time. #Pulmonary embolism -Possibly hypercoagulable given the concern for lung cancer. Would recommend at least 6-months of anticoagulation. Pulmonary embolism. CTA chest showed small segmental and subsegmental right-sided pulmonary emboli. Doppler of LE showed no DVT She was starting on IV heparin drip, then transition lovenox 80mg BID Lovenox discontinued and transitioned to Eliquis Continue Eliquis BID Elevated troponin Mostly due to demand ischemia from hypoxia Initial troponin 150.9 then peak to 157, now trending down to 118 Echo showed no segmental LV wall motion abnormalities denies any chest pain Pt was on IV heparin drip for the PE, then transition to Lovenox, now on Eliquis continue atenolol and statin Clinically stable Lower extremity edema Doppler of LE showed no evidence of DVT Swelling improved significantly Lasix IV given prn Might consider lasix PO TID on discharge Stable Weakness PT/OT recommended SNF for inpatient therapy Spoke to family and would like pt to get PT/OT done outpatient Pt plans to return back to [place] Continue PT/OT Fall precaution CAD status post stent Continue her beta tristan and statin Hypothyroidism Continue Synthroid. Hypertension: Continue amlodipine and atenolol. Hyperlipidemia Continue statin. Depression Continue On Zoloft. DVT prophylaxis on Eliquis BID Code status Full code Disposition PT/OT recommended inpatient rehab, pt not interested [place] and [place] depending on clinical progress Admission and Anticipated Discharge Date Admission Date: March 26, 2022 Subjective Pt was seen and examined for follow up of shortness of breath, hypoxia Sitting in chair with no acute distress Pt said that she feels fine Nurse said that last night patient was placed on 15 L oxygen after her sat was in the low 70's She said that she did not have any symptoms at that time. This morning she was back on 4 L NC Currently she is on 3L NC and saturated above 90% Denies any chest pain, palpitation, dizziness, fever, SOB Review of Systems Review of Systems: All systems reviewed & are unremarkable except as noted in Subjective Physical Exam Physical Exam: General- No acute distress Head- atraumatic Eyes- PERRL, EOMI, ENT- oropharynx clear Neck- supple, no JVD Lungs- diminished BS Heart- regular rhythm; no murmur Abdomen- normal bowel sounds, soft, nontender Extremities- no calf tenderness, + edema Neuro- alert, oriented x 3; PERRL, EOMI; no facial palsy; no dysarthria Skin- warm & dry Results & Data Results & Data ([facility]) Vital Signs (Past 12 Hours) Vital Signs Temp Pulse Pulse Resp BP Pulse Ox 04/12/22 15:31 61 04/12/22 14:54 36.5 C 64 20 123/78 91 04/12/22 11:53 36.6 C 62 20 129/78 93 04/12/22 08:25 36.8 C 75 20 146/77 H 95 04/12/22 07:49 60 04/12/22 07:25 69 18 94
[2022-04-12] MEDS: ROSUVASTATIN CALCIUM 20 MG TAB PO SCH (20:30)
[2022-04-13] MEDS: LEVOTHYROXINE SODIUM 50 MCG TABLET PO SCH (06:05)
[2022-04-13] MEDS: IPRATROPIUM BROMIDE NEB SOLN 0.02% 2.5 ML VIAL INH PRN (07:36)
[2022-04-13] MEDS: BUDESONIDE 0.5 MG/2 ML VIAL (PULMICORT) NEB SCH ×2 (07:36→19:07)
[2022-04-13] MEDS: FORMOTEROL 20 MCG/2 ML VIAL INH SCH ×2 (07:37→19:07)
[2022-04-13] MEDS: INSULIN ASPART PER UNIT SC SCH ×4 (08:04→20:38)
[2022-04-13] MEDS: MAGNESIUM OXIDE 400 MG TAB PO SCH (08:11)
[2022-04-13] MEDS: LORATADINE 10 MG TAB PO SCH (08:11)
[2022-04-13] MEDS: amLODIPine BESYLATE 5 MG TAB PO SCH (08:11)
[2022-04-13] MEDS: SERTRALINE HCL 50 MG TABLET PO SCH (08:11)
[2022-04-13] MEDS: guaiFENesin 600 MG TABCR PO SCH ×2 (08:12→20:27)
[2022-04-13] MEDS: MULTI VIT W/MINERALS LIQUID 15 ML UDP PO SCH (08:12)
[2022-04-13] MEDS: APIXABAN 5 MG TABLET PO SCH ×2 (08:12→20:27)
[2022-04-13] MEDS: ATENOLOL 25 MG TABLET PO SCH (08:12)
[2022-04-13] MEDS ORDERED: FUROSEMIDE INJ 20 MG/2 ML VIAL IV ONE (14:02)
--- NOTE | 2022-04-13 18:00 | Hospitalist Progress Note ---
Date of Service April 13, 2022 Assessment & Plan (1) Acute respiratory failure with hypoxia and hypercarbia: Plan: Present on admission with worsening SOB and lethargy Possible related to COPD exacebation ABG on admission with pH 7.31/ pCO2 85/ PHCO3 43 Pt was intubated on vent support on admission Extubated on 03/27 CTA chest showed small segmental and subsegmental right-sided pulmonary emboli. Severe emphysema with bronchitis. Tracheobronchial secretions with bibasilar mucous plugging. CXR showed Interval development of small to moderate-sized left pleural effusion with left lower lobe atelectasis/collapse. There is also evidence for small right pleural effusion and right basilar atelectasis. received IV Zosyn, Vanco and doxycycline and solumedrol in the in the ER Sputum cx showed Moraxella catarrhalis IV Levaquin changed to Augmentin IV steroid was discontinued by the fountain supervisor Continued Augmentin until 04/03 Lasix 40mg IV given (04/03) Continue mucinex, flatter valve, cont. IS Pt was on oxygen at home prior coming to [facility] - not clear how much she used (seems on and off O2) Pulm on board Per pulmonary medicine Aggressive pulmonary toilet. Discussed consistent use of flutter valve and incentive spirometer. Wean oxygen as tolerated with saturation goal of 88-92%. Transition to Brovana and Pulmicort due to poor inspiratory capacity. Recommend BiPAP at night. Strongly encouraged good compliance with BiPAP given her evidence of acute on chronic hypercapnic respiratory failure. Would likely also benefit from NIV upon discharge Currently on 3L NC and saturated well above 90% Will need to get 2 step on discharge Lasix 20mg IVx1 today Waiting for trilogy - Case management will submit for Patient has chronic respiratory failure secondary to COPD. Due to recent hospitalization bilevel/Rad device has been considered and ruled out due to patient need for volume assured ventilation; this requirement are not met with bilevel devices. Target tidal volume with adjustable pressure will help reduce PCO2 levels, increased oxygenation, help improve overall respiratory status and lower re-admission to the hospital. This patient also required continuous alarm, battery backup and portability which are not possible with bilevel/RAD device. Due to chronic hypercapnic respiratory failure consequent to COPD, the patient now requires a noninvasive home ventilator. Bilevel therapy with and without a rate would be ineffective as patient requires a volume targeted mode. Ventilation is required to decrease work of breathing and improve pulmonary status. Interruption of ventilator support would lead to decline of health status. NIMV settings should be AVAPS-AE; Breath rate: auto; Inspiratory time: auto; Sigh: off; Tidal Volume: [350-450], PS min: [4-10 PS max: 12-20]; EPAP min: [6- 10]; EPAP max: [10-16]; AVAPS rate: [14 during sleep and as needed] Pulmonary Nodule -1.5 cm pulmonary nodule within left lower lobe seen on CT imaging during his hospital stay. -Size and morphology of nodule concerning for primary lung cancer. Recommend PET/CT as an outpatient. Nodule not amenable to bronchoscopic biopsy given its location. It would be amenable to CT-guided biopsy. Pt not interested in work-up at this time. #Pulmonary embolism -Possibly hypercoagulable given the concern for lung cancer. Would recommend at least 6-months of anticoagulation. Pulmonary embolism. CTA chest showed small segmental and subsegmental right-sided pulmonary emboli. Doppler of LE showed no DVT She was starting on IV heparin drip, then transition lovenox 80mg BID Lovenox discontinued and transitioned to Eliquis Continue Eliquis BID Elevated troponin Mostly due to demand ischemia from hypoxia Initial troponin 150.9 then peak to 157, now trending down to 118 Echo showed no segmental LV wall motion abnormalities denies any chest pain Pt was on IV heparin drip for the PE, then transition to Lovenox, now on Eliquis continue atenolol and statin Clinically stable Lower extremity edema Doppler of LE showed no evidence of DVT Swelling improved significantly Lasix IV given prn Might consider lasix PO TID on discharge Stable Weakness PT/OT recommended SNF for inpatient therapy Spoke to family and would like pt to get PT/OT done outpatient Pt plans to return back to [place] Continue PT/OT Fall precaution CAD status post stent Continue her beta tristan and statin Hypothyroidism Continue Synthroid. Hypertension: Continue amlodipine and atenolol. Hyperlipidemia Continue statin. Depression Continue On Zoloft. DVT prophylaxis on Eliquis BID Code status Full code Disposition PT/OT recommended inpatient rehab, pt not interested DC and travel to [place] depending on clinical progress Admission and Anticipated Discharge Date Admission Date: March 26, 2022 Subjective Pt was seen and examined for follow up of shortness of breath, hypoxia Sitting in chair with no acute distress with son at bedside Pt said that she feels fine Denies any chest pain, palpitation, dizziness, fever, SOB Review of Systems Review of Systems: All systems reviewed & are unremarkable except as noted in Subjective Physical Exam Physical Exam: General- No acute distress Head- atraumatic Eyes- PERRL, EOMI, ENT- oropharynx clear Neck- supple, no JVD Lungs- diminished BS Heart- regular rhythm; no murmur Abdomen- normal bowel sounds, soft, nontender Extremities- no calf tenderness, + edema Neuro- alert, oriented x 3; PERRL, EOMI; no facial palsy; no dysarthria Skin- warm & dry Results & Data Results & Data ([facility]) Vital Signs (Past 12 Hours) Vital Signs Temp Pulse Pulse Resp BP Pulse Ox 04/13/22 17:44 67 04/13/22 15:28 36.7 C 127 H 20 133/69 93 04/13/22 12:01 36.9 C 56 L 21 125/75 96 04/13/22 09:23 79 20 85 L 04/13/22 08:25 36.6 C 71 22 141/70 H 90 04/13/22 07:24 61
[2022-04-13] MEDS: ROSUVASTATIN CALCIUM 20 MG TAB PO SCH (20:27)
[2022-04-14] MEDS: LEVOTHYROXINE SODIUM 50 MCG TABLET PO SCH (05:49)
[2022-04-14] MEDS: BUDESONIDE 0.5 MG/2 ML VIAL (PULMICORT) NEB SCH ×2 (06:55→18:17)
[2022-04-14] MEDS: FORMOTEROL 20 MCG/2 ML VIAL INH SCH ×2 (06:55→18:17)
[2022-04-14] MEDS: MAGNESIUM OXIDE 400 MG TAB PO SCH (08:23)
[2022-04-14] MEDS: ATENOLOL 25 MG TABLET PO SCH (08:23)
[2022-04-14] MEDS: APIXABAN 5 MG TABLET PO SCH ×2 (08:24→19:31)
[2022-04-14] MEDS: amLODIPine BESYLATE 5 MG TAB PO SCH (08:24)
[2022-04-14] MEDS: SERTRALINE HCL 50 MG TABLET PO SCH (08:24)
[2022-04-14] MEDS: guaiFENesin 600 MG TABCR PO SCH ×2 (08:24→19:31)
[2022-04-14] MEDS: MULTI VIT W/MINERALS LIQUID 15 ML UDP PO SCH (08:24)
[2022-04-14] MEDS: LORATADINE 10 MG TAB PO SCH (08:24)
[2022-04-14] MEDS: INSULIN ASPART PER UNIT SC SCH ×4 (08:28→21:05)
--- NOTE | 2022-04-14 18:29 | Hospitalist Progress Note ---
Date of Service April 14, 2022 Assessment & Plan (1) Acute respiratory failure with hypoxia and hypercarbia: Plan: Present on admission with worsening SOB and lethargy Possible related to COPD exacebation ABG on admission with pH 7.31/ pCO2 85/ PHCO3 43 Pt was intubated on vent support on admission Extubated on 03/27 CTA chest showed small segmental and subsegmental right-sided pulmonary emboli. Severe emphysema with bronchitis. Tracheobronchial secretions with bibasilar mucous plugging. CXR showed Interval development of small to moderate-sized left pleural effusion with left lower lobe atelectasis/collapse. There is also evidence for small right pleural effusion and right basilar atelectasis. received IV Zosyn, Vanco and doxycycline and solumedrol in the in the ER Sputum cx showed Moraxella catarrhalis IV Levaquin changed to Augmentin IV steroid was discontinued by the director facilities maintenance Continued Augmentin until 04/03 Lasix 40mg IV given (04/03) Continue mucinex, flatter valve, cont. IS Pt was on oxygen at home prior coming to [facility] - not clear how much she used (seems on and off O2) Pulm on board Per pulmonary medicine Aggressive pulmonary toilet. Discussed consistent use of flutter valve and incentive spirometer. Wean oxygen as tolerated with saturation goal of 88-92%. Transition to Brovana and Pulmicort due to poor inspiratory capacity. Recommend BiPAP at night. Strongly encouraged good compliance with BiPAP given her evidence of acute on chronic hypercapnic respiratory failure. Would likely also benefit from NIV upon discharge Continue 3L to 4L NC and saturated well above 90%. Goal oxygen sat 88-92 % Will need to get 2 step on discharge Patient has chronic respiratory failure secondary to COPD. Due to recent hospitalization bilevel/Rad device has been considered and ruled out due to patient need for volume assured ventilation; this requirement are not met with bilevel devices. Target tidal volume with adjustable pressure will help reduce PCO2 levels, increased oxygenation, help improve overall respiratory status and lower re-admission to the hospital. This patient also required continuous alarm, battery backup and portability which are not possible with bilevel/RAD device. Waiting for trilogy - Case management submitted the request for the trilogy machine Due to chronic hypercapnic respiratory failure consequent to COPD, the patient now requires a noninvasive home ventilator. Bilevel therapy with and without a rate would be ineffective as patient requires a volume targeted mode. Ventilation is required to decrease work of breathing and improve pulmonary status. Interruption of ventilator support would lead to decline of health status. NIMV settings should be AVAPS-AE; Breath rate: auto; Inspiratory time: auto; Sigh: off; Tidal Volume: [350-450], PS min: [4-10 PS max: 12-20]; EPAP min: [6- 10]; EPAP max: [10-16]; AVAPS rate: [14 during sleep and as needed] Pulmonary Nodule -1.5 cm pulmonary nodule within left lower lobe seen on CT imaging during his hospital stay. -Size and morphology of nodule concerning for primary lung cancer. Recommend PET/CT as an outpatient. Nodule not amenable to bronchoscopic biopsy given its location. It would be amenable to CT-guided biopsy. Pt not interested in work-up at this time. #Pulmonary embolism -Possibly hypercoagulable given the concern for lung cancer. Would recommend at least 6-months of anticoagulation. Pulmonary embolism. CTA chest showed small segmental and subsegmental right-sided pulmonary emboli. Doppler of LE showed no DVT She was starting on IV heparin drip, then transition lovenox 80mg BID Lovenox discontinued and transitioned to Eliquis Continue Eliquis BID Elevated troponin Mostly due to demand ischemia from hypoxia Initial troponin 150.9 then peak to 157, now trending down to 118 Echo showed no segmental LV wall motion abnormalities denies any chest pain Pt was on IV heparin drip for the PE, then transition to Lovenox, now on Eliquis continue atenolol and statin Clinically stable Lower extremity edema Doppler of LE showed no evidence of DVT Swelling improved significantly Lasix IV given prn Might consider lasix PO TID on discharge Stable Weakness PT/OT recommended SNF for inpatient therapy Spoke to family and would like pt to get PT/OT done outpatient Pt plans to return back to [place] Continue PT/OT Fall precaution CAD status post stent Continue her beta tristan and statin Hypothyroidism Continue Synthroid. Hypertension: Continue amlodipine and atenolol. Hyperlipidemia Continue statin. Depression Continue On Zoloft. DVT prophylaxis on Eliquis BID Code status Full code Disposition PT/OT recommended inpatient rehab, pt not interested DC and travel to [place] depending on clinical progress Admission and Anticipated Discharge Date Admission Date: March 26, 2022 Subjective Pt was seen and examined for follow up of shortness of breath, hypoxia Lying in bed with no acute distress Pt said that she feels fine Denies any chest pain, palpitation, dizziness, fever, SOB Review of Systems Review of Systems: All systems reviewed & are unremarkable except as noted in Subjective Physical Exam Physical Exam: General- No acute distress Head- atraumatic Eyes- PERRL, EOMI, ENT- oropharynx clear Neck- supple, no JVD Lungs- diminished BS Heart- regular rhythm; no murmur Abdomen- normal bowel sounds, soft, nontender Extremities- no calf tenderness, + trace edema Neuro- alert, oriented x 3; PERRL, EOMI; no facial palsy; no dysarthria Skin- warm & dry Results & Data Results & Data ([facility]) Vital Signs (Past 12 Hours) Vital Signs Temp Pulse Pulse Resp BP Pulse Ox 04/14/22 18:17 86 20 90 04/14/22 16:00 61 04/14/22 15:15 36.6 C 66 20 125/76 92 04/14/22 11:44 36.4 C L 68 20 139/73 92 04/14/22 08:44 92 04/14/22 08:05 36.7 C 65 20 143/77 H 96 04/14/22 07:30 87 04/14/22 06:55 76 20 91
[2022-04-14] MEDS: ROSUVASTATIN CALCIUM 20 MG TAB PO SCH (19:32)
[2022-04-15] MEDS: LEVOTHYROXINE SODIUM 50 MCG TABLET PO SCH (05:46)
[2022-04-15] MEDS: FORMOTEROL 20 MCG/2 ML VIAL INH SCH ×2 (07:08→19:46)
[2022-04-15] MEDS: BUDESONIDE 0.5 MG/2 ML VIAL (PULMICORT) NEB SCH ×2 (07:08→19:46)
[2022-04-15] MEDS: guaiFENesin 600 MG TABCR PO SCH ×2 (08:59→20:18)
[2022-04-15] MEDS: MAGNESIUM OXIDE 400 MG TAB PO SCH (08:59)
[2022-04-15] MEDS: ATENOLOL 25 MG TABLET PO SCH (08:59)
[2022-04-15] MEDS: SERTRALINE HCL 50 MG TABLET PO SCH (08:59)
[2022-04-15] MEDS: LORATADINE 10 MG TAB PO SCH (08:59)
[2022-04-15] MEDS: MULTI VIT W/MINERALS LIQUID 15 ML UDP PO SCH (08:59)
[2022-04-15] MEDS: APIXABAN 5 MG TABLET PO SCH ×2 (08:59→20:18)
[2022-04-15] MEDS: amLODIPine BESYLATE 5 MG TAB PO SCH (08:59)
[2022-04-15] MEDS ORDERED: FUROSEMIDE 20 MG TAB PO SCH (09:00)
[2022-04-15] MEDS: INSULIN ASPART PER UNIT SC SCH ×4 (09:01→21:03)
[2022-04-15] MEDS: IPRATROPIUM BROMIDE NEB SOLN 0.02% 2.5 ML VIAL INH PRN (14:19)
[2022-04-15] MEDS: ROSUVASTATIN CALCIUM 20 MG TAB PO SCH (20:17)
--- NOTE | 2022-04-15 20:44 | Hospitalist Progress Note ---
Date of Service April 15, 2022 Assessment & Plan (1) Acute respiratory failure with hypoxia and hypercarbia: Plan: Present on admission with worsening SOB and lethargy Possible related to COPD exacebation ABG on admission with pH 7.31/ pCO2 85/ PHCO3 43 Pt was intubated on vent support on admission Extubated on 03/27 CTA chest showed small segmental and subsegmental right-sided pulmonary emboli. Severe emphysema with bronchitis. Tracheobronchial secretions with bibasilar mucous plugging. CXR showed Interval development of small to moderate-sized left pleural effusion with left lower lobe atelectasis/collapse. There is also evidence for small right pleural effusion and right basilar atelectasis. received IV Zosyn, Vanco and doxycycline and solumedrol in the in the ER Sputum cx showed Moraxella catarrhalis IV Levaquin changed to Augmentin IV steroid was discontinued by the shaker operator Continued Augmentin until 04/03 Lasix 40mg IV given (04/03) Continue mucinex, flatter valve, cont. IS Pt was on oxygen at home prior coming to [facility] - not clear how much she used (seems on and off O2) Pulm on board Per pulmonary medicine Aggressive pulmonary toilet. Discussed consistent use of flutter valve and incentive spirometer. Wean oxygen as tolerated with saturation goal of 88-92%. Transition to Brovana and Pulmicort due to poor inspiratory capacity. Recommend BiPAP at night. Strongly encouraged good compliance with BiPAP given her evidence of acute on chronic hypercapnic respiratory failure. Would likely also benefit from NIV upon discharge Continue 3L to 4L NC and saturated well above 90%. Goal oxygen sat 88-92 % Will need to get 2 step on discharge Patient has chronic respiratory failure secondary to COPD. Due to recent hospitalization bilevel/Rad device has been considered and ruled out due to patient need for volume assured ventilation; this requirement are not met with bilevel devices. Target tidal volume with adjustable pressure will help reduce PCO2 levels, increased oxygenation, help improve overall respiratory status and lower re-admission to the hospital. This patient also required continuous alarm, battery backup and portability which are not possible with bilevel/RAD device. Trilogy dropped today. Pt will use it tonight. I asked respiratory therapy to connect the oxygen as well for tonight Due to chronic hypercapnic respiratory failure consequent to COPD, the patient now requires a noninvasive home ventilator. Bilevel therapy with and without a rate would be ineffective as patient requires a volume targeted mode. Ventilation is required to decrease work of breathing and improve pulmonary status. Interruption of ventilator support would lead to decline of health status. NIMV settings should be AVAPS-AE; Breath rate: auto; Inspiratory time: auto; Sigh: off; Tidal Volume: [350-450], PS min: [4-10 PS max: 12-20]; EPAP min: [6- 10]; EPAP max: [10-16]; AVAPS rate: [14 during sleep and as needed] Pulmonary Nodule -1.5 cm pulmonary nodule within left lower lobe seen on CT imaging during his hospital stay. -Size and morphology of nodule concerning for primary lung cancer. Recommend PET/CT as an outpatient. Nodule not amenable to bronchoscopic biopsy given its location. It would be amenable to CT-guided biopsy. Pt not interested in work-up at this time. #Pulmonary embolism -Possibly hypercoagulable given the concern for lung cancer. Would recommend at least 6-months of anticoagulation. Pulmonary embolism. CTA chest showed small segmental and subsegmental right-sided pulmonary emboli. Doppler of LE showed no DVT She was starting on IV heparin drip, then transition lovenox 80mg BID Lovenox discontinued and transitioned to Eliquis Continue Eliquis BID Elevated troponin Mostly due to demand ischemia from hypoxia Initial troponin 150.9 then peak to 157, now trending down to 118 Echo showed no segmental LV wall motion abnormalities denies any chest pain Pt was on IV heparin drip for the PE, then transition to Lovenox, now on Eliquis continue atenolol and statin Clinically stable Lower extremity edema Doppler of LE showed no evidence of DVT Swelling improved significantly Lasix IV given prn Lasix 20mg 3x week added Stable Weakness PT/OT recommended SNF for inpatient therapy Spoke to family and would like pt to get PT/OT done outpatient Pt plans to return back to [place] Continue PT/OT Fall precaution CAD status post stent Continue her beta tristan and statin Hypothyroidism Continue Synthroid. Hypertension: Continue amlodipine and atenolol. Hyperlipidemia Continue statin. Depression Continue On Zoloft. DVT prophylaxis on Eliquis BID Code status Full code Disposition PT/OT recommended inpatient rehab, pt not interested DC and travel to [place] depending on clinical progress Admission and Anticipated Discharge Date Admission Date: March 26, 2022 Subjective Pt was seen and examined for follow up of shortness of breath, hypoxia Lying in bed with no acute distress Pt get tired today after walking in the hallway with therapy She said that she got tired. Nurse said that walking to the bathroom pt was fine She said that she has to leave tomorrow because her son is driving her Svetlana on Friday Denies any chest pain, palpitation, dizziness, fever, SOB Review of Systems Review of Systems: All systems reviewed & are unremarkable except as noted in Subjective Physical Exam Physical Exam: General- No acute distress Head- atraumatic Eyes- PERRL, EOMI, ENT- oropharynx clear Neck- supple, no JVD Lungs- diminished BS Heart- regular rhythm; no murmur Abdomen- normal bowel sounds, soft, nontender Extremities- no calf tenderness, +no edema Neuro- alert, oriented x 3; PERRL, EOMI; no facial palsy; no dysarthria Skin- warm & dry Results & Data Results & Data ([facility]) Vital Signs (Past 12 Hours) Vital Signs Temp Pulse Pulse Resp BP BP Pulse Ox 04/15/22 19:46 67 20 95 04/15/22 19:00 36.7 C 70 20 137/70 93 04/15/22 16:00 64 04/15/22 14:54 36.9 C 64 18 106/61 91 04/15/22 14:21 69 18 91 04/15/22 11:07 36.8 C 63 18 115/74 94
[2022-04-16] MEDS: LEVOTHYROXINE SODIUM 50 MCG TABLET PO SCH (06:28)
[2022-04-16] MEDS: FORMOTEROL 20 MCG/2 ML VIAL INH SCH (07:27)
[2022-04-16] MEDS: BUDESONIDE 0.5 MG/2 ML VIAL (PULMICORT) NEB SCH (07:27)
[2022-04-16] MEDS: MAGNESIUM OXIDE 400 MG TAB PO SCH (08:50)
[2022-04-16] MEDS: APIXABAN 5 MG TABLET PO SCH (08:50)
[2022-04-16] MEDS: guaiFENesin 600 MG TABCR PO SCH (08:50)
[2022-04-16] MEDS: amLODIPine BESYLATE 5 MG TAB PO SCH (08:50)
[2022-04-16] MEDS: MULTI VIT W/MINERALS LIQUID 15 ML UDP PO SCH (08:50)
[2022-04-16] MEDS: LORATADINE 10 MG TAB PO SCH (08:50)
[2022-04-16] MEDS: ATENOLOL 25 MG TABLET PO SCH (08:50)
[2022-04-16] MEDS: SERTRALINE HCL 50 MG TABLET PO SCH (08:50)
[2022-04-16] MEDS: INSULIN ASPART PER UNIT SC SCH ×3 (08:55→16:55)
[2022-04-16] MEDS ORDERED: FUROSEMIDE INJ 20 MG/2 ML VIAL IV ONE (10:31)
--- NOTE | 2022-04-16 18:18 | Discharge Summary ---
Date of Service April 16, 2022 Discharge Data Allergies Allergy/AdvReac Type Severity Reaction Status Date / Time pollen extracts Allergy Intermediate ITCHY Verified 03/26/22 20:26 EYES, SNEEZING, CONGESTION Consultations 03/26/22 20:44 ED Decision to Admit Stat 03/26/22 23:21 Consult Second Hand Paper Machine Routine 04/04/22 09:32 Consult Pulmonology Routine Ordered Studies 03/26/22 19:03 CT head/brain wo con Stat 03/26/22 20:07 CT angio chest PE protocol Stat 03/27/22 00:51 US venous doppler [facility] Urgent Hospital Course (1) Acute respiratory failure with hypoxia and hypercarbia: Present on admission with worsening SOB and lethargy Possible related to COPD exacebation ABG on admission with pH 7.31/ pCO2 85/ PHCO3 43 Pt was intubated on vent support on admission Extubated on 03/27 CTA chest showed small segmental and subsegmental right-sided pulmonary emboli. Severe emphysema with bronchitis. Tracheobronchial secretions with bibasilar mucous plugging. CXR showed Interval development of small to moderate-sized left pleural effusion with left lower lobe atelectasis/collapse. There is also evidence for small right pleural effusion and right basilar atelectasis. received IV Zosyn, Vanco and doxycycline and solumedrol in the in the ER Sputum cx showed Moraxella catarrhalis IV Levaquin changed to Augmentin IV steroid was discontinued by the scorer helper Continued Augmentin until 04/03 Lasix 40mg IV given (04/03) Continue mucinex, flatter valve, cont. IS Pt was on oxygen at home prior coming to [facility] - not clear how much she used (seems on and off O2) Pulm on board Per pulmonary medicine Aggressive pulmonary toilet. Discussed consistent use of flutter valve and incentive spirometer. Wean oxygen as tolerated with saturation goal of 88-92%. Transition to Brovana and Pulmicort due to poor inspiratory capacity. Recommend BiPAP at night. Strongly encouraged good compliance with BiPAP given her evidence of acute on chronic hypercapnic respiratory failure. Would likely also benefit from NIV upon discharge Continue 3L to 4L NC and saturated well above 90%. Goal oxygen sat 88-92 % Will need to get 2 step on discharge Patient has chronic respiratory failure secondary to COPD. Due to recent hospitalization bilevel/Rad device has been considered and ruled out due to patient need for volume assured ventilation; this requirement are not met with bilevel devices. Target tidal volume with adjustable pressure will help reduce PCO2 levels, increased oxygenation, help improve overall respiratory status and lower re-admission to the hospital. This patient also required continuous alarm, battery backup and portability which are not possible with bilevel/RAD device. Trilogy dropped today. Pt will use it tonight. I asked respiratory therapy to connect the oxygen as well for tonight Due to chronic hypercapnic respiratory failure consequent to COPD, the patient now requires a noninvasive home ventilator. Bilevel therapy with and without a rate would be ineffective as patient requires a volume targeted mode. Ventilation is required to decrease work of breathing and improve pulmonary status. Interruption of ventilator support would lead to decline of health status. NIMV settings should be AVAPS-AE; Breath rate: auto; Inspiratory time: auto; Sigh: off; Tidal Volume: [350-450], PS min: [4-10 PS max: 12-20]; EPAP min: [6- 10]; EPAP max: [10-16]; AVAPS rate: [14 during sleep and as needed] Pulmonary Nodule -1.5 cm pulmonary nodule within left lower lobe seen on CT imaging during his hospital stay. -Size and morphology of nodule concerning for primary lung cancer. Recommend PET/CT as an outpatient. Nodule not amenable to bronchoscopic biopsy given its location. It would be amenable to CT-guided biopsy. Pt not interested in work-up at this time. #Pulmonary embolism -Possibly hypercoagulable given the concern for lung cancer. Would recommend at least 6-months of anticoagulation. Pulmonary embolism. CTA chest showed small segmental and subsegmental right-sided pulmonary emboli. Doppler of LE showed no DVT She was starting on IV heparin drip, then transition lovenox 80mg BID Lovenox discontinued and transitioned to Eliquis Continue Eliquis BID Elevated troponin Mostly due to demand ischemia from hypoxia Initial troponin 150.9 then peak to 157, now trending down to 118 Echo showed no segmental LV wall motion abnormalities denies any chest pain Pt was on IV heparin drip for the PE, then transition to Lovenox, now on Eliquis continue atenolol and statin Clinically stable Lower extremity edema Doppler of LE showed no evidence of DVT Swelling improved significantly Lasix IV given prn Lasix 20mg 3x week added Stable Weakness PT/OT recommended SNF for inpatient therapy Spoke to family and would like pt to get PT/OT done outpatient Pt plans to return back to [place] Continue PT/OT Fall precaution CAD status post stent Continue her beta tristan and statin Hypothyroidism Continue Synthroid. Hypertension: Continue amlodipine and atenolol. Hyperlipidemia Continue statin. Depression Continue On Zoloft. DVT prophylaxis on Eliquis BID Code status Full code Disposition PT/OT recommended inpatient rehab, pt not interested DC and travel to [place] depending on clinical progress Discharge Plan Discharge Items Patient Disposition: Home - Self-Care Reason For Visit: AMS Discharge Diagnosis: Acute respiratory failure with hypoxia and hypercarbia: Pulmonary Nodule Pulmonary embolism Pulmonary embolism. Elevated troponin Lower extremity edema Weakness Coronary artery disease Hypothyroidism Hypertension: Hyperlipidemia Activity: Resume your previous activity Non-emergency contact: Primary Care Provider and Rouge Miller Call non-emergency contact if: you have any medication questions and your symptoms worsen Follow-up/Referrals: PCP,CATHLEEN [Primary Care Provider] - Diet: Heart Healthy Addtl Attending Provider Instructions: Follow up with your primary care provider within 1 week Follow up with pulmonology Your provider or Rouge Miller will need to refer you to pulmonary rehab Continue physical and occupational therapy Continue 3 liter oxygen nasal canula at rest and 4 liter oxygen nasal canula with ambulation Continue trilogy at night and as needed You have a 1.5 cm nodule seen during CAT of the lung. Nodule not amenable to bronchoscopic biopsy given its location.You will need outpatient PET/CAT as an outpatient for further evaluation Continue monitor for any abnormal bleeding while on blood thinner Seek medical attention if you develop any shortness of breath, bleeding or any other symptoms Fall precaution Medication Instructions: Eliquis Your condition is typically treated with an anticoagulant. Anticoagulants will thin your blood to help prevent new clots. You should take her medication exactly as directed. Never skip a dose. Never take a double dose. If you miss a dose, take it as soon as you remember. Avoid NSAIDs (Motrin, Aleve, Naproxen, Ibuprofen, Advil, Meloxicam,..) due to risks of bleeding Call your Primary Care doctor if you experience any of the following: Swelling or Pain in your leg Sudden, continuous pain deep in a muscle Pain that worsens when you are active or when you stand still for a long time Chest Pain Sudden Shortness of Breath Rapid or pounding heart beat Fainting Dizziness Cough with blood or bloody sputum Sweating more than normal Bruises Heavy or uncontrolled bleeding Blood in your urine, stool or vomit Black or tarry stools Caring for Your Self at Home: Avoid sitting, standing or lying down for long periods without moving your legs and feet When traveling by car, stop to get out and move around at least once every 3 hours On long airplane, train or bus rides, get up and move around when possible If you can't get up, wiggle your toes and tighten your calves to keep your blood moving Follow Up: It is important for you to keep your follow up appointments with your medical provider. Pending Studies at Discharge: No Stand-Alone Forms: My [facility], Smoking Cessation Medications and DC Order Prescriptions: New budesonide 0.5 mg/2 mL Suspension For Nebulization 0.5 mg NEB BIDR Qty: 60 RF: 0 formoterol fumarate [Perforomist] 20 mcg/2 mL Solution For Nebulization 20 mcg inhalation BIDR Qty: 60 RF: 0 ipratropium-albuterol 0.5 mg-3 mg(2.5 mg base)/3 mL solution for nebulization 3 ml inhalation Q4H PRN (Reason: shortness of breath) Qty: 180 RF: 0 magnesium oxide 400 mg (241.3 mg magnesium) Tablet 400 mg PO QAM Qty: 30 RF: 0 Eliquis 5 mg Tablet 5 mg PO BID 30 Days Qty: 60 RF: 0 guaifenesin [Mucinex] 600 mg Tablet Extended Release 12hr 600 mg PO Q12 PRN (Reason: cough) Qty: 30 RF: 0 furosemide [Lasix] 20 mg tablet 20 mg PO UD Qty: 30 RF: 0 Continued atenolol 25 mg tablet 25 mg PO DAILY RF: 0 amlodipine 2.5 mg tablet 5 mg PO DAILY RF: 0 nicotine (polacrilex) 4 mg gum 4 mg PO DIRECTED PRN (Reason: DESIRE TO SMOKE) RF: 0 levothyroxine 50 mcg tablet 50 mcg PO QAM RF: 0 nitroglycerin [Nitrostat] 0.4 mg Tablet, Sublingual 0.4 mg sublingual DIRECTED PRN (Reason: Chest Pain) RF: 0 sertraline 25 mg tablet 25 mg PO DAILY RF: 0 albuterol sulfate 90 mcg/actuation HFA aerosol inhaler 2 puff inhalation Q4H PRN (Reason: Shortness Of Breath) RF: 0 loratadine 10 mg tablet 10 mg PO DAILY RF: 0 Multivitamin 50 Plus Tablet 1 tab PO DAILY RF: 0 rosuvastatin 20 mg Tablet 20 mg PO QPM RF: 0 Discontinued Trelegy Ellipta 200-62.5-25 mcg blister with device 1 inh INHALATION DAILY RF: 0 Discharge Orders: Discharge Order (Routine); Ordered 04/16/22 Ordered By: Alejandro Cordero/Other Patient Handouts: Prediabetes, 5 Steps for Eating Healthier, Using a Nebulizer (Adult) Admission Data Admit Date/Time: 03/26/22 22:08 Attending Provider: Alejandro Real Admit Provider: Bernard Garcia Primary Care Provider: PCP,NO Other Providers: Bernard Garcia ; Prasanna Montoya ; [facility] ; Roverto Buenrostro ; [place] ; Adolfo Guerrero Other Interventions: Discharge Summary Assessment (RN) Last Done: 04/16/22 17:14
[2022-04-16] MEDS ORDERED: FORMOTEROL 20 MCG/2 ML VIAL INH SCH (21:00)
== END 2022-04-16 18:45 | disposition home or self-care (01) | DRG 208 ==
LOC: ED 18:53 → SUATTDRO 22:08 → 1E 22:08 → 2S 03-28 23:01 → 2N 04-09 05:23